=== PATIENT | female | born 1985 | race African-American/Black ===

== ENCOUNTER 2018-08-10 15:06 | Observation (INO) ==
[2018-08-10] MEDS ORDERED: hydrALAZINE 20 MG/1 ML VIAL IV STA ×2 (15:27→15:54)
[2018-08-10 15:52] LABS: Basophils % 0.3 % (0.0-0.8); Eosinophils # 0.1 10*3/uL (0.0-0.87); Hemoglobin 9.1 GM/DL (12.0-16.0); Immature Granulocytes % 0.4 %; Immature Granulocytes Absolute 0.04 #; Lymphocytes # 1.1 10*3/uL (1.4-4.0); Mean Corpuscular HGB Conc 29.4 GM/DL (32-36); Mean Corpuscular Hemoglobin 19 PG (27-34); Mean Corpuscular Volume 65.4 FL (87-102); Mean Platelet Volume 9.8 FL (9.6-12.0); Monocytes # 1.1 10*3/uL (0.11-0.8); Monocytes % 10.8 % (1.7-12.7); Neutrophils # 7.4 10*3/uL (1.4-7.4); Neutrophils % 76.5 % (38.7-73.9); Platelet Count 248 T/CUMM (130-400); Red Blood Count 4.74 MC/CUMM (3.8-5.5); Red Cell Distribution Width 20.5 % (9.3-17.3); White Blood Count 9.7 T/CUMM (4-12)
[2018-08-10 16:02] LABS: INR 0.9; PT Patient Result 9.9 SECS
[2018-08-10] MEDS ORDERED: LABETALOL 20 MG/4 ML SYRINGE IV ONE ×2 (16:41→19:20)
[2018-08-10 16:43] LABS: Alanine Aminotransferase 18 U/L (13-56); Albumin 3.9 G/DL (3.4-5.0); Alkaline Phosphatase 90 U/L (45-117); Aspartate Amino Transferase 21 U/L (0-37); Bilirubin,Total < 0.39 MG/DL (0.2-1.0); Blood Urea Nitrogen 22 MG/DL (7-18); Calcium 10.2 MG/DL (8.5-10.1); Glucose 125 MG/DL (74-106); Osmolality,Calculated 267.5 MOS/KG (273-304); Sodium 132 MMOL/L (136-145); Total Protein 9.3 G/DL (6.4-8.3)
[2018-08-10] MEDS ORDERED: ONDANSETRON 4 MG/2 ML VIAL ONE (16:45)
[2018-08-10 16:48] LABS: Potassium 2.5 MMOL/L (3.5-5.1); Troponin I 0.117 NG/ML (0.00-0.045)
[2018-08-10] MEDS ORDERED: LABETALOL 20 MG/4 ML SYRINGE IV STA (16:49)
[2018-08-10] MEDS ORDERED: POTASSIUM CHLORIDE 20 MEQ TABLET PO STA (16:50)
[2018-08-10] MEDS ORDERED: methylPREDNISolone SOD SUC 125 MG/2 ML VIAL IV STA (16:51)
[2018-08-10] MEDS ORDERED: MORPHINE 4 MG/1 ML VIAL IV STA (16:51)
[2018-08-10] MEDS ORDERED: ONDANSETRON 4 MG/2 ML VIAL IV STA (16:51)
[2018-08-10] MEDS ORDERED: ASPIRIN 325 MG TABLET PO STA (16:51)
[2018-08-10] MEDS ORDERED: ALBUTEROL/IPRATROPIUM 3 ML NEB RESP TX STA (16:51)
[2018-08-10] MEDS ORDERED: NITROGLYCERIN DRIP 50 MG/250 ML BOTTLE IV SCH (17:00)
[2018-08-10 17:38] LABS: Apearance,Urine Slightly Hazy (Clear); Bacteria,Urine Occasional /HPF (Few); Bilirubin,Urine Negative (Negative); Blood, Urine Negative (Negative); Glucose,Urine (UA) Negative (Negative); Ketones,Urine Negative (Negative); Nitrite,Urine Negative (Negative); Protein,Urine >=500 MG/DL; RBC,Urine 4 /HPF (0-4); Squamous Epithelial Cell,Urine Occasional /HPF (0-10); Urine Color Yellow (Yellow); Urine Specific Gravity 1.024 (1.001-1.035); WBC,Urine 5 /HPF (0-6)
[2018-08-10 17:42] LABS: Barbiturates Screen,Urine Negative (Negative); Benzodiazepines Screen,Urine Negative (Negative); Cannabinoid Screen,Urine Positive (Negative); Opiate Screen,Urine Negative (Negative); Phencyclidine Screen,Urine Negative (Negative)
[2018-08-10] MEDS ORDERED: ACETAMINOPHEN 500 MG TABLET ONE (18:05)
[2018-08-10] MEDS ORDERED: SODIUM CHLORIDE 0.9% 1,000 ML IV ONE (18:26)
[2018-08-10] MEDS ORDERED: ACETAMINOPHEN 500 MG TABLET PO STA (19:00)
[2018-08-10 20:14] LABS: Basophils % 0.2 % (0.0-0.8); Eosinophils % 0.1 % (0.00-10.9); Hematocrit 27.6 VOL% (35.7-47.0); Hemoglobin 8.3 GM/DL (12.0-16.0); Immature Granulocytes % 0.4 %; Immature Granulocytes Absolute 0.04 #; Lymphocytes # 0.3 10*3/uL (1.4-4.0); Lymphocytes % 2.7 % (21.3-54.2); Mean Corpuscular HGB Conc 30.1 GM/DL (32-36); Mean Corpuscular Hemoglobin 19 PG (27-34); Mean Corpuscular Volume 64.3 FL (87-102); Mean Platelet Volume 10.5 FL (9.6-12.0); Monocytes # 0.3 10*3/uL (0.11-0.8); Monocytes % 3.6 % (1.7-12.7); Neutrophils # 8.9 10*3/uL (1.4-7.4); Platelet Count 224 T/CUMM (130-400); Red Blood Count 4.29 MC/CUMM (3.8-5.5); Red Cell Distribution Width 19.9 % (9.3-17.3); White Blood Count 9.6 T/CUMM (4-12)
[2018-08-10 20:25] LABS: INR 0.9; PT Patient Result 10.1 SECS
[2018-08-10 20:36] LABS: Band Neutrophils 1 % (0-10); Eosinophils 1 % (0-10); Lymphocytes 3 % (20-55); Platelet Estimate Normal; Segmented Neutrophils 93 % (50-85); Total Cells Counted 100
[2018-08-10 20:37] LABS: Hypochromasia Slight; Microcytosis 1+
[2018-08-10 20:47] LABS: Albumin 3.3 G/DL (3.4-5.0); Bilirubin,Total 1.1 MG/DL (0.2-1.0); Calcium 9.1 MG/DL (8.5-10.1); Osmolality,Calculated 269.4 MOS/KG (273-304); Potassium 2.7 MMOL/L (3.5-5.1); Total Protein 7.7 G/DL (6.4-8.3)
[2018-08-10] MEDS: SODIUM CHLOR 0.9% KCL 40 MEQ 40 MEQ/1,000 ML BAG IV SCH (21:31)
[2018-08-10] MEDS: ENOXAPARIN 40 MG/0.4 ML SYRINGE SUBCUT SCH (21:31)
[2018-08-11] MEDS: hydrALAZINE 20 MG/1 ML VIAL IV PRN ×3 (00:37→14:27)
[2018-08-11 00:57] LABS: Basophils % 0.1 % (0.0-0.8); Hematocrit 26.1 VOL% (35.7-47.0); Hemoglobin 7.9 GM/DL (12.0-16.0); Immature Granulocytes % 0.5 %; Immature Granulocytes Absolute 0.04 #; Lymphocytes # 0.3 10*3/uL (1.4-4.0); Lymphocytes % 3.6 % (21.3-54.2); Mean Corpuscular HGB Conc 30.3 GM/DL (32-36); Mean Corpuscular Hemoglobin 20 PG (27-34); Mean Corpuscular Volume 64.4 FL (87-102); Monocytes # 0.1 10*3/uL (0.11-0.8); Neutrophils # 7.7 10*3/uL (1.4-7.4); Neutrophils % 94.8 % (38.7-73.9); Platelet Count 210 T/CUMM (130-400); Red Blood Count 4.05 MC/CUMM (3.8-5.5); Red Cell Distribution Width 19.9 % (9.3-17.3); White Blood Count 8.1 T/CUMM (4-12)
[2018-08-11 01:12] LABS: Calcium 9.5 MG/DL (8.5-10.1); Osmolality,Calculated 272.2 MOS/KG (273-304); Potassium 3.2 MMOL/L (3.5-5.1); Risk Ratio 1.66; VLDL CHOLESTEROL 8.4 MG/DL
[2018-08-11] MEDS: ACETAMINOPHEN 325 MG TABLET PO PRN ×5 (02:55→23:49)
[2018-08-11 03:45] LABS: Band Neutrophils 4 % (0-10); Lymphocytes 5 % (20-55); Platelet Estimate Normal; Segmented Neutrophils 89 % (50-85); Total Cells Counted 100
[2018-08-11] MEDS ORDERED: POTASSIUM CHLORIDE 20 MEQ TABLET PO ONE ×2 (06:46→12:00)
[2018-08-11] MEDS: SODIUM CHLOR 0.9% KCL 40 MEQ 40 MEQ/1,000 ML BAG IV SCH ×2 (07:06→13:00)
[2018-08-11 07:09] LABS: % Iron Saturation 4.7 % (18-50); Ferritin 6.3 ng/ml (8-252)
[2018-08-11] MEDS: ASPIRIN EC 325 MG TABLET PO SCH (08:03)
[2018-08-11] MEDS: POTASSIUM CHLORIDE 20 MEQ TABLET PO ONE ×2 (08:07→08:10)
[2018-08-11] MEDS ORDERED: AZITHROMYCIN INJ 500 MG in SODIUM CHLORIDE 0.9% 250 ML IV ONE (08:44)
[2018-08-11] MEDS ORDERED: amLODIPine 5 MG TABLET PO SCH (09:00)
[2018-08-11] MEDS: cefTRIAXone 1,000 MG in SYRINGE 1 EACH IV SCH (10:12)
[2018-08-11] MEDS: MONTELUKAST 10 MG TABLET PO SCH (10:12)
[2018-08-11] MEDS: FLUTICASONE 50 MCG NASAL SPRAY 16 GM BOTTLE BOTH NARES SCH ×2 (10:12→21:45)
[2018-08-11] MEDS: SPIRONOLACTONE 25 MG TABLET PO SCH ×2 (15:30→21:41)
[2018-08-11] MEDS: cloNIDine 0.1 MG TABLET PO SCH (21:41)
[2018-08-11] MEDS: ENOXAPARIN 40 MG/0.4 ML SYRINGE SUBCUT SCH (21:41)
[2018-08-12 05:33] LABS: Basophils % 0.3 % (0.0-0.8); Eosinophils % 0.1 % (0.00-10.9); Hematocrit 27.3 VOL% (35.7-47.0); Hemoglobin 8.2 GM/DL (12.0-16.0); Immature Granulocytes % 0.5 %; Immature Granulocytes Absolute 0.08 #; Lymphocytes # 1.8 10*3/uL (1.4-4.0); Lymphocytes % 11.7 % (21.3-54.2); Mean Corpuscular Hemoglobin 19 PG (27-34); Mean Corpuscular Volume 64.1 FL (87-102); Mean Platelet Volume 10.4 FL (9.6-12.0); Monocytes # 0.8 10*3/uL (0.11-0.8); Neutrophils # 12.4 10*3/uL (1.4-7.4); Neutrophils % 82.4 % (38.7-73.9); Platelet Count 219 T/CUMM (130-400); Red Blood Count 4.26 MC/CUMM (3.8-5.5); Red Cell Distribution Width 20.9 % (9.3-17.3)
[2018-08-12 05:51] LABS: Calcium 9.7 MG/DL (8.5-10.1); Osmolality,Calculated 267.4 MOS/KG (273-304); Potassium 3.6 MMOL/L (3.5-5.1)
[2018-08-12 06:06] LABS: Hypochromasia 2+
[2018-08-12 06:07] LABS: Anisocytosis 1+; Microcytosis 1+; Ovalocytes Few; Platelet Estimate Normal; Target Cells Few
[2018-08-12] MEDS ORDERED: AZITHROMYCIN 250 MG TABLET PO SCH (09:00)
[2018-08-12] MEDS: SPIRONOLACTONE 25 MG TABLET PO SCH (09:22)
[2018-08-12] MEDS: cloNIDine 0.1 MG TABLET PO SCH (09:22)
[2018-08-12] MEDS: MONTELUKAST 10 MG TABLET PO SCH (09:22)
[2018-08-12] MEDS: ASPIRIN EC 325 MG TABLET PO SCH (09:22)
[2018-08-12] MEDS: FLUTICASONE 50 MCG NASAL SPRAY 16 GM BOTTLE BOTH NARES SCH (09:23)
[2018-08-12] MEDS: cefTRIAXone 1,000 MG in SYRINGE 1 EACH IV SCH (09:23)
[2018-08-12 11:30] VITALS: BP 147/94
== END 2018-08-12 11:30 | disposition home or self-care (01) ==
LOC: N.EDINP 15:06 → N.ED 15:06 → N.5E 19:35
PROVIDERS: ADMIT Family Medicine; ATTEND Family Medicine

== ENCOUNTER 2018-10-12 16:00 | Inpatient (IN) ==
[2018-10-12] MEDS ORDERED: ONDANSETRON 4 MG/2 ML VIAL IV STA (16:50)
[2018-10-12] MEDS ORDERED: SODIUM CHLORIDE 0.9% 1,000 ML IV STA (16:50)
[2018-10-12] MEDS ORDERED: HYDROmorphone 2 MG/1 ML VIAL IV STA (16:50)
[2018-10-12 17:04] LABS: Apearance,Urine Slightly Hazy (Clear); Bacteria,Urine Occasional /HPF (Few); Bilirubin,Urine Negative (Negative); Blood, Urine Negative (Negative); Glucose,Urine (UA) 50 mg/dL (Negative); Hyaline Casts,Urine 3 /LPF (0-3); Ketones,Urine Negative (Negative); Mucus,Urine Occasional /LPF (Occasional); Nitrite,Urine Negative (Negative); Protein,Urine >=500 MG/DL; RBC,Urine 10 /HPF (0-4); Squamous Epithelial Cell,Urine Occasional /HPF (0-10); Trichomonas,Urine Occasional /HPF (<1); Urine Color Yellow (Yellow); Urine Specific Gravity 1.016 (1.001-1.035); Urine Urobilinogen < 2.0 EU/DL (0.2-1.0); WBC,Urine 13 /HPF (0-6)
[2018-10-12] MEDS ORDERED: METOPROLOL TARTRATE 5 MG/5 ML VIAL IV STA ×2 (17:06→17:48)
[2018-10-12 17:14] LABS: Basophils # 0.1 10*3/uL (0.0-0.2); Basophils % 0.4 % (0.0-0.8); Eosinophils # 0.1 10*3/uL (0.0-0.87); Eosinophils % 0.4 % (0.00-10.9); Hematocrit 33.4 VOL% (35.7-47.0); Immature Granulocytes % 0.5 %; Immature Granulocytes Absolute 0.07 #; Lymphocytes # 2.3 10*3/uL (1.4-4.0); Lymphocytes % 16.2 % (21.3-54.2); Mean Corpuscular HGB Conc 29.9 GM/DL (32-36); Mean Corpuscular Volume 66.7 FL (87-102); Mean Platelet Volume 10.6 FL (9.6-12.0); Monocytes % 4.6 % (1.7-12.7); Neutrophils % 77.9 % (38.7-73.9); Platelet Count 348 T/CUMM (130-400); Red Blood Count 5.01 MC/CUMM (3.8-5.5); White Blood Count 14.2 T/CUMM (4-12)
[2018-10-12 17:39] LABS: Albumin 4.1 G/DL (3.4-5.0); Bilirubin,Total 0.4 MG/DL (0.2-1.0); Calcium 10.7 MG/DL (8.5-10.1); Osmolality,Calculated 274.1 MOS/KG (273-304); Total Protein 10.3 G/DL (6.4-8.3)
[2018-10-12] MEDS ORDERED: hydrALAZINE 20 MG/1 ML VIAL ONE (18:05)
[2018-10-12] MEDS ORDERED: POTASSIUM CHLORIDE 20 MEQ TABLET PO ONE (18:05)
[2018-10-12] MEDS ORDERED: POTASSIUM CHLORIDE 20 MEQ TABLET PO STA (18:06)
[2018-10-12] MEDS ORDERED: hydrALAZINE 20 MG/1 ML VIAL IV STA ×2 (18:06→18:33)
[2018-10-12] MEDS ORDERED: cefTRIAXone 1,000 MG in SODIUM CHLORIDE 0.9% 100 ML IV STA (19:02)
[2018-10-12 19:22] LABS: Microcytosis 2+; Platelet Estimate Normal; Polychromasia Slight
[2018-10-12] MEDS ORDERED: DILTIAZEM 25 MG/5 ML VIAL IV ONE (19:50)
[2018-10-12] MEDS ORDERED: niCARdipine 25 MG/10 ML VIAL IV ONE (19:53)
[2018-10-12] MEDS: niCARdipine INJ 25 MG in SODIUM CHLORIDE 0.9% 240 ML IV PRN (20:00)
[2018-10-12] MEDS ORDERED: BISACODYL 5 MG TABLET PO PRN (20:05)
[2018-10-12] MEDS ORDERED: ZALEPLON 5 MG CAPSULE PO PRN (20:05)
[2018-10-12] MEDS ORDERED: diphenhydrAMINE CAP 25 MG CAPSULE PO PRN (20:05)
[2018-10-12] MEDS ORDERED: niCARdipine INJ 25 MG in SODIUM CHLORIDE 0.9% 240 ML IV PRN (20:05)
[2018-10-12] MEDS ORDERED: guaiFENesin/DM ER 600-30 MG TABLET PO PRN (20:05)
[2018-10-12] MEDS ORDERED: NICOTINE 21 MG/24 HR PATCH TRANSDERM PRN (20:05)
[2018-10-12] MEDS: ONDANSETRON 4 MG/2 ML VIAL IV PRN (21:27)
[2018-10-12] MEDS: MORPHINE 4 MG/1 ML VIAL IV PRN (22:22)
[2018-10-12] MEDS: PANTOPRAZOLE 40 MG VIAL IV SCH (22:23)
[2018-10-12] MEDS: SODIUM CHLOR 0.9% KCL 40 MEQ 40 MEQ/1,000 ML BAG IV SCH (22:24)
[2018-10-12] MEDS: POTASSIUM CHLORIDE RIDER 10 MEQ in PREMIX 1 EACH IV PRN ×2 (22:30→23:36)
[2018-10-13] MEDS: niCARdipine INJ 25 MG in SODIUM CHLORIDE 0.9% 240 ML IV PRN ×2 (00:25→08:00)
[2018-10-13] MEDS: POTASSIUM CHLORIDE RIDER 10 MEQ in PREMIX 1 EACH IV PRN ×6 (00:33→10:44)
[2018-10-13] MEDS: ONDANSETRON 4 MG/2 ML VIAL IV PRN (02:02)
[2018-10-13] MEDS: MORPHINE 4 MG/1 ML VIAL IV PRN (02:02)
[2018-10-13] MEDS: niCARdipine INJ 50 MG in SODIUM CHLORIDE 0.9% 480 ML IV PRN ×2 (03:08→07:52)
[2018-10-13 05:24] LABS: Basophils % 0.2 % (0.0-0.8); Eosinophils % 0.1 % (0.00-10.9); Hematocrit 27.2 VOL% (35.7-47.0); Hemoglobin 8.2 GM/DL (12.0-16.0); Immature Granulocytes % 0.6 %; Immature Granulocytes Absolute 0.09 #; Lymphocytes # 1.6 10*3/uL (1.4-4.0); Lymphocytes % 10.2 % (21.3-54.2); Mean Corpuscular HGB Conc 30.1 GM/DL (32-36); Mean Corpuscular Volume 67.2 FL (87-102); Mean Platelet Volume 10.9 FL (9.6-12.0); Monocytes % 5.7 % (1.7-12.7); Neutrophils % 83.2 % (38.7-73.9); Platelet Count 281 T/CUMM (130-400); Red Blood Count 4.05 MC/CUMM (3.8-5.5); Red Cell Distribution Width 19.4 % (9.3-17.3); White Blood Count 15.5 T/CUMM (4-12)
[2018-10-13 05:58] LABS: Albumin 3.4 G/DL (3.4-5.0); Bilirubin,Total 0.6 MG/DL (0.2-1.0); Calcium 9.3 MG/DL (8.5-10.1); Total Protein 8.2 G/DL (6.4-8.3)
[2018-10-13 06:03] LABS: Anisocytosis 1+; Hypochromasia 1+; Microcytosis 1+; Ovalocytes Slight; Target Cells Slight
[2018-10-13 06:04] LABS: Platelet Estimate Normal
[2018-10-13] MEDS: SODIUM CHLOR 0.9% KCL 40 MEQ 40 MEQ/1,000 ML BAG IV SCH ×3 (06:37→23:15)
[2018-10-13] MEDS: PANTOPRAZOLE 40 MG VIAL IV SCH ×2 (08:00→21:35)
[2018-10-13] MEDS: LABETALOL 200 MG TABLET PO SCH ×2 (08:25→21:34)
[2018-10-13] MEDS ORDERED: PANTOPRAZOLE 40 MG TABLET PO SCH (09:00)
[2018-10-13] MEDS ORDERED: POTASSIUM CHLORIDE 20 MEQ TABLET PO ONE (12:52)
[2018-10-13 13:26] LABS: Barbiturates Screen,Urine Negative (Negative); Benzodiazepines Screen,Urine Negative (Negative); Cannabinoid Screen,Urine Positive (Negative); Opiate Screen,Urine Positive (Negative); Phencyclidine Screen,Urine Negative (Negative)
[2018-10-13] MEDS: cefTRIAXone 1,000 MG in SYRINGE 1 EACH IV SCH (17:47)
[2018-10-13] MEDS: cloNIDine 0.1 MG TABLET PO SCH (21:34)
[2018-10-13] MEDS: ACETAMINOPHEN 325 MG TABLET PO PRN (21:34)
[2018-10-14 04:28] LABS: Calcium 9.3 MG/DL (8.5-10.1); Osmolality,Calculated 275.7 MOS/KG (273-304)
[2018-10-14 04:34] LABS: Basophils # 0.1 10*3/uL (0.0-0.2); Basophils % 0.5 % (0.0-0.8); Eosinophils # 0.2 10*3/uL (0.0-0.87); Eosinophils % 1.8 % (0.00-10.9); Hematocrit 24.7 VOL% (35.7-47.0); Hemoglobin 7.4 GM/DL (12.0-16.0); Immature Granulocytes % 0.5 %; Immature Granulocytes Absolute 0.05 #; Lymphocytes # 2.8 10*3/uL (1.4-4.0); Lymphocytes % 25.8 % (21.3-54.2); Mean Corpuscular Volume 68.6 FL (87-102); Mean Platelet Volume 10.9 FL (9.6-12.0); Monocytes % 6.3 % (1.7-12.7); Neutrophils % 65.1 % (38.7-73.9); Platelet Count 270 T/CUMM (130-400); Red Cell Distribution Width 19.8 % (9.3-17.3); White Blood Count 10.8 T/CUMM (4-12)
[2018-10-14 05:15] LABS: Hypochromasia 3+; Microcytosis 1+; Platelet Estimate Normal; Polychromasia Few; Target Cells Few
[2018-10-14] MEDS: ACETAMINOPHEN 325 MG TABLET PO PRN ×3 (05:33→20:06)
[2018-10-14] MEDS: SODIUM CHLOR 0.9% KCL 40 MEQ 40 MEQ/1,000 ML BAG IV SCH ×2 (07:27→15:16)
[2018-10-14] MEDS: LABETALOL 200 MG TABLET PO SCH ×2 (09:03→23:33)
[2018-10-14] MEDS: cloNIDine 0.1 MG TABLET PO SCH ×2 (09:03→20:07)
[2018-10-14] MEDS: PANTOPRAZOLE 40 MG VIAL IV SCH ×2 (09:03→20:07)
[2018-10-14] MEDS ORDERED: SODIUM CHLORIDE 0.9% 1,000 ML IV PRN (09:38)
[2018-10-14 10:00] LABS: % Iron Saturation 4.7 % (18-50); Ferritin 6.7 ng/ml (8-252)
[2018-10-14] MEDS: hydrALAZINE 25 MG TABLET PO SCH ×3 (11:08→20:07)
[2018-10-14] MEDS: FERROUS SULFATE 325 MG TABLET PO SCH ×2 (15:16→20:03)
[2018-10-14] MEDS: cefTRIAXone 1,000 MG in SYRINGE 1 EACH IV SCH (18:22)
[2018-10-15] MEDS: ACETAMINOPHEN 325 MG TABLET PO PRN ×2 (02:17→22:32)
[2018-10-15] MEDS: SODIUM CHLOR 0.9% KCL 40 MEQ 40 MEQ/1,000 ML BAG IV SCH (05:26)
[2018-10-15 08:15] LABS: Basophils # 0.1 10*3/uL (0.0-0.2); Basophils % 0.7 % (0.0-0.8); Eosinophils # 0.3 10*3/uL (0.0-0.87); Eosinophils % 2.9 % (0.00-10.9); Hematocrit 30.7 VOL% (35.7-47.0); Immature Granulocytes % 0.4 %; Immature Granulocytes Absolute 0.04 #; Lymphocytes # 1.8 10*3/uL (1.4-4.0); Lymphocytes % 16.9 % (21.3-54.2); Mean Corpuscular HGB Conc 30.6 GM/DL (32-36); Mean Corpuscular Volume 69.9 FL (87-102); Mean Platelet Volume 10.7 FL (9.6-12.0); Monocytes % 5.4 % (1.7-12.7); Neutrophils % 73.7 % (38.7-73.9); Platelet Count 302 T/CUMM (130-400); Red Cell Distribution Width 20.9 % (9.3-17.3); White Blood Count 10.7 T/CUMM (4-12)
[2018-10-15 08:25] LABS: Hemoglobin 9.4 GM/DL (12.0-16.0); Red Blood Count 4.39 MC/CUMM (3.8-5.5)
[2018-10-15] MEDS: cloNIDine 0.1 MG TABLET PO SCH ×2 (09:48→20:31)
[2018-10-15] MEDS: hydrALAZINE 25 MG TABLET PO SCH (09:48)
[2018-10-15] MEDS: FERROUS SULFATE 325 MG TABLET PO SCH ×3 (09:48→20:31)
[2018-10-15] MEDS: LABETALOL 200 MG TABLET PO SCH ×2 (09:48→20:32)
[2018-10-15] MEDS: PANTOPRAZOLE 40 MG VIAL IV SCH ×2 (09:50→20:32)
[2018-10-15] MEDS: ISOSORBIDE MONONITRATE 30 MG TABLET PO SCH ×2 (12:45→20:32)
[2018-10-15] MEDS: IRON SUCROSE 500 MG in SODIUM CHLORIDE 0.9% 250 ML IV SCH (15:20)
[2018-10-15 16:39] LABS: HIV Antigen/Antibody Result Nonreactive (Nonreactive)
[2018-10-15] MEDS: hydrALAZINE 20 MG/1 ML VIAL IV PRN (17:24)
[2018-10-15] MEDS: cefTRIAXone 1,000 MG in SYRINGE 1 EACH IV SCH (17:26)
[2018-10-16 06:08] LABS: Calcium 9.9 MG/DL (8.5-10.1); Osmolality,Calculated 275.8 MOS/KG (273-304)
[2018-10-16] MEDS: POTASSIUM CHLORIDE 20 MEQ TABLET PO PRN ×3 (08:46→14:09)
[2018-10-16] MEDS: LABETALOL 200 MG TABLET PO SCH ×2 (08:46→20:02)
[2018-10-16] MEDS: cloNIDine 0.1 MG TABLET PO SCH ×2 (08:46→20:02)
[2018-10-16] MEDS: PANTOPRAZOLE 40 MG VIAL IV SCH ×2 (08:46→20:02)
[2018-10-16] MEDS: ISOSORBIDE MONONITRATE 30 MG TABLET PO SCH ×2 (08:46→23:54)
[2018-10-16] MEDS: FERROUS SULFATE 325 MG TABLET PO SCH ×3 (08:46→20:02)
[2018-10-16] MEDS: IRON SUCROSE 500 MG in SODIUM CHLORIDE 0.9% 250 ML IV SCH (08:47)
[2018-10-16] MEDS ORDERED: LACTULOSE 20 GM/30 ML UDCUP PO PRN (09:05)
[2018-10-16] MEDS: ACETAMINOPHEN 325 MG TABLET PO PRN ×3 (11:49→23:54)
[2018-10-16] MEDS: hydrALAZINE 20 MG/1 ML VIAL IV PRN (16:28)
[2018-10-16] MEDS: cefTRIAXone 1,000 MG in SYRINGE 1 EACH IV SCH (18:04)
[2018-10-17] MEDS ORDERED: MORPHINE 4 MG/1 ML VIAL IV PRN (03:40)
[2018-10-17] MEDS ORDERED: LACTATED RINGERS 500 ML IV SCH (08:00)
[2018-10-17] MEDS: cloNIDine 0.1 MG TABLET PO SCH (08:36)
[2018-10-17] MEDS: PANTOPRAZOLE 40 MG VIAL IV SCH (08:37)
[2018-10-17] MEDS ORDERED: PROPOFOL 200 MG/20 ML VIAL IV ONE (10:00)
[2018-10-17] MEDS ORDERED: LABETALOL 100 MG/20 ML VIAL IV ONE (10:00)
[2018-10-17] MEDS ORDERED: LIDOCAINE 2% 5 ML VIAL ONE (10:00)
[2018-10-17] MEDS: LABETALOL 200 MG TABLET PO SCH (12:52)
[2018-10-17] MEDS: FERROUS SULFATE 325 MG TABLET PO SCH (12:52)
[2018-10-17] MEDS: ISOSORBIDE MONONITRATE 30 MG TABLET PO SCH (12:52)
[2018-10-17 13:07] VITALS: BP 167/105
== END 2018-10-17 14:32 | disposition home or self-care (01) | DRG 683 ==
LOC: N.ED 16:00 → SUATTDRO 20:05 → N.ICU 20:46 → SUATTDRO 20:46 → N.ICU 22:06 → N.5E 10-15 03:59
PROVIDERS: ADMIT Internal Medicine; ATTEND Internal Medicine Infectious Disease

== ENCOUNTER 2018-10-25 07:25 | Inpatient (IN) ==
[2018-10-25] MEDS ORDERED: SODIUM CHLORIDE 0.9% 2,000 ML IV STA (08:04)
[2018-10-25] MEDS ORDERED: ONDANSETRON ODT 4 MG TABLET PO STA (08:04)
[2018-10-25] MEDS ORDERED: HYDROmorphone 2 MG/1 ML VIAL IV STA (08:04)
[2018-10-25] MEDS ORDERED: PANTOPRAZOLE 40 MG VIAL IV STA (08:04)
[2018-10-25] MEDS ORDERED: METOPROLOL TARTRATE 5 MG/5 ML VIAL IV STA (08:05)
[2018-10-25] MEDS ORDERED: cloNIDine 0.1 MG TABLET PO STA (08:05)
[2018-10-25] MEDS ORDERED: ONDANSETRON 4 MG/2 ML VIAL ONE (08:27)
[2018-10-25] MEDS ORDERED: ONDANSETRON 4 MG/2 ML VIAL IV STA (08:59)
[2018-10-25 09:04] LABS: Basophils # 0.1 10*3/uL (0.0-0.2); Basophils % 0.5 % (0.0-0.8); Eosinophils # 0.1 10*3/uL (0.0-0.87); Eosinophils % 1.2 % (0.00-10.9); Hematocrit 37.8 VOL% (35.7-47.0); Hemoglobin 11.6 GM/DL (12.0-16.0); Immature Granulocytes % 0.5 %; Immature Granulocytes Absolute 0.06 #; Lymphocytes # 2.3 10*3/uL (1.4-4.0); Lymphocytes % 20.5 % (21.3-54.2); Mean Corpuscular HGB Conc 30.7 GM/DL (32-36); Mean Corpuscular Volume 71.7 FL (87-102); Mean Platelet Volume 10.4 FL (9.6-12.0); Monocytes % 5.9 % (1.7-12.7); Neutrophils % 71.4 % (38.7-73.9); Platelet Count 273 T/CUMM (130-400); Red Blood Count 5.27 MC/CUMM (3.8-5.5); Red Cell Distribution Width 22.2 % (9.3-17.3)
[2018-10-25 09:20] LABS: Albumin 3.9 G/DL (3.4-5.0); Bilirubin,Total 0.4 MG/DL (0.2-1.0); Calcium 10.3 MG/DL (8.5-10.1); Total Protein 8.5 G/DL (6.4-8.3)
[2018-10-25 09:29] LABS: Hypochromasia 1+; Microcytosis Slight; Ovalocytes Slight; Platelet Estimate Adequate
[2018-10-25 10:12] LABS: Amorphous Crystals,Urine Few /HPF (Few); Apearance,Urine Slightly Hazy (Clear); Bilirubin,Urine Negative (Negative); Blood, Urine Small mg/dL (Negative); Glucose,Urine (UA) 50 mg/dL (Negative); Ketones,Urine Negative (Negative); Mucus,Urine Occasional /LPF (Occasional); Nitrite,Urine Negative (Negative); Protein,Urine >=500 MG/DL; RBC,Urine 22 /HPF (0-4); Squamous Epithelial Cell,Urine Occasional /HPF (0-10); Urine Color Yellow (Yellow); Urine Specific Gravity 1.019 (1.001-1.035); Urine Urobilinogen < 2.0 EU/DL (0.2-1.0); WBC,Urine 2 /HPF (0-6)
[2018-10-25 10:20] LABS: Barbiturates Screen,Urine Negative (Negative); Benzodiazepines Screen,Urine Negative (Negative); Cannabinoid Screen,Urine Positive (Negative); Opiate Screen,Urine Negative (Negative); Phencyclidine Screen,Urine Negative (Negative)
[2018-10-25] MEDS ORDERED: ALBUTEROL 2.5 MG/3 ML NEB RESP TX PRN (11:08)
[2018-10-25] MEDS ORDERED: niCARdipine 25 MG/10 ML VIAL IV ONE (11:42)
[2018-10-25] MEDS: ENOXAPARIN 30 MG/0.3 ML SYRINGE SUBCUT SCH (11:50)
[2018-10-25] MEDS: niCARdipine INJ 25 MG in SODIUM CHLORIDE 0.9% 240 ML IV PRN ×3 (11:55→22:13)
[2018-10-25] MEDS ORDERED: LORazepam 2 MG/1 ML VIAL IV PRN (12:06)
[2018-10-25] MEDS: NICOTINE 7 MG/24 HR PATCH TRANSDERM SCH (15:57)
[2018-10-25] MEDS: MORPHINE 4 MG/1 ML VIAL IV PRN (20:21)
[2018-10-25] MEDS: amLODIPine 10 MG TABLET PO SCH (20:21)
[2018-10-25] MEDS ORDERED: cloNIDine 0.1 MG TABLET PO SCH (21:00)
[2018-10-25] MEDS: ONDANSETRON 4 MG/2 ML VIAL IV PRN (21:00)
[2018-10-25] MEDS ORDERED: POTASSIUM CHLORIDE 20 MEQ TABLET PO SCH (21:00)
[2018-10-26] MEDS: niCARdipine INJ 25 MG in SODIUM CHLORIDE 0.9% 240 ML IV PRN ×2 (02:46→08:17)
[2018-10-26] MEDS: MORPHINE 4 MG/1 ML VIAL IV PRN ×3 (04:15→22:51)
[2018-10-26] MEDS: ONDANSETRON 4 MG/2 ML VIAL IV PRN (04:17)
[2018-10-26 04:31] LABS: Basophils # 0.1 10*3/uL (0.0-0.2); Basophils % 0.6 % (0.0-0.8); Eosinophils # 0.2 10*3/uL (0.0-0.87); Hematocrit 35.2 VOL% (35.7-47.0); Hemoglobin 10.8 GM/DL (12.0-16.0); Immature Granulocytes % 0.5 %; Immature Granulocytes Absolute 0.05 #; Lymphocytes # 2.2 10*3/uL (1.4-4.0); Lymphocytes % 21.7 % (21.3-54.2); Mean Corpuscular HGB Conc 30.7 GM/DL (32-36); Mean Corpuscular Volume 73.2 FL (87-102); Mean Platelet Volume 10.6 FL (9.6-12.0); Monocytes % 6.3 % (1.7-12.7); Neutrophils % 68.9 % (38.7-73.9); Platelet Count 239 T/CUMM (130-400); Red Blood Count 4.81 MC/CUMM (3.8-5.5); Red Cell Distribution Width 21.9 % (9.3-17.3); White Blood Count 10.2 T/CUMM (4-12)
[2018-10-26 05:04] LABS: Calcium 9.2 MG/DL (8.5-10.1); Osmolality,Calculated 274.8 MOS/KG (273-304); Risk Ratio 2.06; Thyroid Stimulating Hormone 1.03 uIU/ml (0.358-3.74); VLDL CHOLESTEROL 29.4 MG/DL
[2018-10-26] MEDS: POTASSIUM CHLORIDE 20 MEQ TABLET PO SCH ×4 (07:27→18:37)
[2018-10-26] MEDS: ACETAMINOPHEN 325 MG TABLET PO PRN (07:27)
[2018-10-26] MEDS ORDERED: PANTOPRAZOLE 40 MG VIAL IV SCH (08:00)
[2018-10-26] MEDS ORDERED: ISOSORBIDE MONONITRATE 30 MG TABLET PO SCH (09:00)
[2018-10-26] MEDS ORDERED: amLODIPine 10 MG TABLET PO SCH (09:00)
[2018-10-26] MEDS: amLODIPine 10 MG TABLET PO SCH (09:58)
[2018-10-26] MEDS: NICOTINE 7 MG/24 HR PATCH TRANSDERM SCH (09:58)
[2018-10-26] MEDS: cloNIDine 0.1 MG TABLET PO SCH ×2 (09:58→23:54)
[2018-10-26] MEDS: LISINOPRIL 10 MG TABLET PO SCH ×2 (09:58→23:55)
[2018-10-26] MEDS: PANTOPRAZOLE 40 MG TABLET PO SCH (09:58)
[2018-10-26] MEDS: ENOXAPARIN 30 MG/0.3 ML SYRINGE SUBCUT SCH (12:51)
[2018-10-27 06:10] LABS: Calcium 9.8 MG/DL (8.5-10.1); Osmolality,Calculated 272.8 MOS/KG (273-304)
[2018-10-27] MEDS: LISINOPRIL 10 MG TABLET PO SCH ×2 (08:58→22:06)
[2018-10-27] MEDS: cloNIDine 0.1 MG TABLET PO SCH ×2 (08:58→22:55)
[2018-10-27] MEDS: amLODIPine 10 MG TABLET PO SCH (08:58)
[2018-10-27] MEDS: ACETAMINOPHEN 325 MG TABLET PO PRN (08:58)
[2018-10-27] MEDS: PANTOPRAZOLE 40 MG TABLET PO SCH (08:58)
[2018-10-27] MEDS: POTASSIUM CHLORIDE 20 MEQ TABLET PO SCH ×2 (08:58→22:06)
[2018-10-27] MEDS: NICOTINE 7 MG/24 HR PATCH TRANSDERM SCH (08:59)
[2018-10-27] MEDS: ENOXAPARIN 30 MG/0.3 ML SYRINGE SUBCUT SCH (12:37)
[2018-10-27] MEDS: MORPHINE 4 MG/1 ML VIAL IV PRN (12:38)
[2018-10-28] MEDS: ACETAMINOPHEN 325 MG TABLET PO PRN (05:54)
[2018-10-28 06:25] LABS: Calcium 9.2 MG/DL (8.5-10.1); Osmolality,Calculated 281.5 MOS/KG (273-304)
[2018-10-28] MEDS: PANTOPRAZOLE 40 MG TABLET PO SCH (08:14)
[2018-10-28] MEDS: ENOXAPARIN 30 MG/0.3 ML SYRINGE SUBCUT SCH (08:14)
[2018-10-28] MEDS: LISINOPRIL 10 MG TABLET PO SCH (08:14)
[2018-10-28] MEDS: cloNIDine 0.1 MG TABLET PO SCH (08:14)
[2018-10-28] MEDS: NICOTINE 7 MG/24 HR PATCH TRANSDERM SCH (08:15)
[2018-10-28] MEDS: amLODIPine 10 MG TABLET PO SCH (08:15)
[2018-10-28] MEDS: POTASSIUM CHLORIDE 20 MEQ TABLET PO SCH (08:15)
[2018-10-28 12:03] VITALS: BP 134/83
[2018-10-29] MEDS ORDERED: POTASSIUM CHLORIDE 20 MEQ TABLET PO SCH (09:00)
[2018-11-15] MEDS ORDERED: BISACODYL 5 MG TABLET PO ONE (12:00)
[2018-11-15] MEDS ORDERED: POLYETHYLENE GLYCOL POWDER 255 GM BOTTLE PO ONE (18:00)
== END 2018-10-28 12:42 | disposition home or self-care (01) | DRG 305 ==
LOC: N.ED 07:25 → SUATTDRO 11:08 → N.EDINP 11:08 → N.ICU 14:50 → N.2E 10-27 11:08
PROVIDERS: ADMIT Internal Medicine; ATTEND Internal Medicine

== ENCOUNTER 2019-03-31 15:51 | Inpatient (IN) ==
[2019-03-31] MEDS ORDERED: ASPIRIN 325 MG TABLET PO STA (16:47)
[2019-03-31] MEDS ORDERED: hydrALAZINE 20 MG/1 ML VIAL IV STA ×2 (16:47→18:36)
[2019-03-31] MEDS ORDERED: METOPROLOL TARTRATE 5 MG/5 ML VIAL IV STA ×2 (16:47→18:36)
[2019-03-31] MEDS ORDERED: ONDANSETRON 4 MG/2 ML VIAL IV STA (16:47)
[2019-03-31 17:47] LABS: Basophils # 0.1 10*3/uL (0.0-0.2); Basophils % 0.5 % (0.0-0.8); Eosinophils # 0.1 10*3/uL (0.0-0.87); Eosinophils % 0.9 % (0.00-10.9); Hematocrit 34.7 VOL% (35.7-47.0); Hemoglobin 11.7 GM/DL (12.0-16.0); Immature Granulocytes % 0.5 %; Immature Granulocytes Absolute 0.07 #; Lymphocytes # 2.3 10*3/uL (1.4-4.0); Lymphocytes % 15.2 % (21.3-54.2); Mean Corpuscular HGB Conc 33.7 GM/DL (32-36); Mean Corpuscular Volume 81.6 FL (87-102); Monocytes % 7.7 % (1.7-12.7); Neutrophils % 75.2 % (38.7-73.9); Platelet Count 207 T/CUMM (130-400); Red Blood Count 4.25 MC/CUMM (3.8-5.5); Red Cell Distribution Width 13.7 % (9.3-17.3); White Blood Count 15.3 T/CUMM (4-12)
[2019-03-31 17:59] LABS: INR 0.9; PT Patient Result 9.8 SECS (9.6-12.2); Partial Thromboplastin Time 24.5 SECS (20.8-36.0)
[2019-03-31 18:03] LABS: Apearance,Urine CLEAR (Clear); Bacteria,Urine Occasional /HPF (Few); Bilirubin,Urine Negative (Negative); Blood, Urine Negative (Negative); Glucose,Urine (UA) 50 mg/dL (Negative); Hyaline Casts,Urine 1 /LPF (0-3); Ketones,Urine Negative (Negative); Nitrite,Urine Negative (Negative); Protein,Urine >=500 MG/DL; RBC,Urine 4 /HPF (0-4); Squamous Epithelial Cell,Urine Occasional /HPF (0-10); Urine Color Yellow (Yellow); Urine Specific Gravity 1.024 (1.001-1.035); Urine Urobilinogen < 2.0 EU/DL (0.2-1.0); WBC,Urine 2 /HPF (0-6)
[2019-03-31 18:12] LABS: Alanine Aminotransferase 17 U/L (13-56); Albumin 3.6 G/DL (3.4-5.0); Alkaline Phosphatase 80 U/L (45-117); Aspartate Amino Transferase 33 U/L (0-37); Blood Urea Nitrogen 32 MG/DL (7-18); Calcium 10.3 MG/DL (8.5-10.1); Estimated Glom Filtration Rate 17 ML/MIN; Glucose 107 MG/DL (74-106); Total Protein 8.2 G/DL (6.4-8.3)
[2019-03-31 18:13] LABS: Troponin I 0.279 NG/ML (0.00-0.045)
[2019-03-31 18:18] LABS: Barbiturates Screen,Urine Negative (Negative); Benzodiazepines Screen,Urine Negative (Negative); Cannabinoid Screen,Urine Positive (Negative); Opiate Screen,Urine Negative (Negative); Phencyclidine Screen,Urine Negative (Negative)
[2019-03-31] MEDS ORDERED: ACETAMINOPHEN 325 MG TABLET PO PRN (20:41)
[2019-03-31] MEDS ORDERED: ALUM/MAG/SIMETH/LIDO VISC 1:1 30 ML BOTTLE PO STA (20:44)
[2019-03-31] MEDS ORDERED: ALBUTEROL/IPRATROPIUM 3 ML NEB RESP TX PRN (20:45)
[2019-03-31] MEDS ORDERED: hydrALAZINE 25 MG TABLET PO SCH (21:00)
[2019-03-31] MEDS ORDERED: ISOSORBIDE DINITRATE 20 MG TABLET PO SCH (21:00)
[2019-03-31 21:56] LABS: Troponin I 0.286 NG/ML (0.00-0.045)
[2019-03-31] MEDS: ENOXAPARIN 30 MG/0.3 ML SYRINGE SUBCUT SCH (22:39)
[2019-04-01] MEDS: hydrALAZINE 20 MG/1 ML VIAL IV PRN ×2 (04:49→12:50)
[2019-04-01 05:12] LABS: Basophils # 0.1 10*3/uL (0.0-0.2); Basophils % 0.4 % (0.0-0.8); Eosinophils # 0.1 10*3/uL (0.0-0.87); Eosinophils % 0.5 % (0.00-10.9); Hematocrit 30.8 VOL% (35.7-47.0); Hemoglobin 10.4 GM/DL (12.0-16.0); Immature Granulocytes % 0.4 %; Immature Granulocytes Absolute 0.05 #; Lymphocytes # 1.9 10*3/uL (1.4-4.0); Lymphocytes % 13.8 % (21.3-54.2); Mean Corpuscular HGB Conc 33.8 GM/DL (32-36); Mean Corpuscular Volume 81.1 FL (87-102); Mean Platelet Volume 11.5 FL (9.6-12.0); Monocytes % 6.7 % (1.7-12.7); Neutrophils % 78.2 % (38.7-73.9); Platelet Count 203 T/CUMM (130-400); Red Cell Distribution Width 13.3 % (9.3-17.3); White Blood Count 13.5 T/CUMM (4-12)
[2019-04-01 05:47] LABS: Albumin 3.3 G/DL (3.4-5.0); Bilirubin,Total 0.5 MG/DL (0.2-1.0); Calcium 9.8 MG/DL (8.5-10.1); Osmolality,Calculated 274.4 MOS/KG (273-304); Risk Ratio 2.34; Total Protein 7.4 G/DL (6.4-8.3); VLDL CHOLESTEROL 24.6 MG/DL
[2019-04-01 06:01] LABS: Troponin I 0.277 NG/ML (0.00-0.045)
[2019-04-01] MEDS: ASPIRIN CHEW 81 MG TABLET PO SCH (08:45)
[2019-04-01] MEDS: amLODIPine 10 MG TABLET PO SCH (08:45)
[2019-04-01] MEDS: ISOSORBIDE DINITRATE 20 MG TABLET PO SCH ×2 (08:45→20:15)
[2019-04-01] MEDS: FUROSEMIDE 20 MG/2 ML VIAL IV SCH ×2 (08:50→18:39)
[2019-04-01] MEDS ORDERED: PANTOPRAZOLE 40 MG TABLET PO SCH (09:00)
[2019-04-01] MEDS ORDERED: POTASSIUM CHLORIDE 20 MEQ TABLET PO ONE (10:21)
[2019-04-01] MEDS ORDERED: DILTIAZEM 30 MG TABLET PO SCH (10:30)
[2019-04-01] MEDS: hydroCHLOROthiazide 12.5 MG CAPSULE PO SCH (11:43)
[2019-04-01] MEDS: carvediloL 25 MG TABLET PO SCH ×2 (11:43→20:15)
[2019-04-01] MEDS ORDERED: POLYETHYLENE GLYCOL POWDER 17 GM PACK PO ONE (16:40)
[2019-04-01] MEDS ORDERED: LINACLOTIDE 145 MCG CAPSULE PO ONE (16:57)
[2019-04-01] MEDS: ONDANSETRON 4 MG/2 ML VIAL IV PRN (18:39)
[2019-04-01] MEDS: ENOXAPARIN 30 MG/0.3 ML SYRINGE SUBCUT SCH (20:15)
[2019-04-01] MEDS: PANTOPRAZOLE 40 MG TABLET PO SCH (20:17)
[2019-04-02 06:10] LABS: Albumin 3.2 G/DL (3.4-5.0); Bilirubin,Total 1.2 MG/DL (0.2-1.0); Calcium 9.7 MG/DL (8.5-10.1); Osmolality,Calculated 270.7 MOS/KG (273-304); Total Protein 7.4 G/DL (6.4-8.3)
[2019-04-02] MEDS ORDERED: POTASSIUM CHLORIDE 20 MEQ/15 ML UDCUP PO ONE (08:11)
[2019-04-02] MEDS: hydroCHLOROthiazide 12.5 MG CAPSULE PO SCH (08:34)
[2019-04-02] MEDS: carvediloL 25 MG TABLET PO SCH ×2 (08:35→20:59)
[2019-04-02] MEDS: PANTOPRAZOLE 40 MG TABLET PO SCH ×2 (08:35→20:59)
[2019-04-02] MEDS: ASPIRIN CHEW 81 MG TABLET PO SCH (08:35)
[2019-04-02] MEDS: amLODIPine 10 MG TABLET PO SCH (08:35)
[2019-04-02] MEDS: ISOSORBIDE DINITRATE 20 MG TABLET PO SCH ×2 (08:35→20:59)
[2019-04-02] MEDS: LINACLOTIDE 145 MCG CAPSULE PO SCH (08:36)
[2019-04-02] MEDS: FUROSEMIDE 20 MG/2 ML VIAL IV SCH ×2 (08:36→16:34)
[2019-04-02] MEDS: cloNIDine 0.1 MG TABLET PO SCH ×2 (08:42→20:58)
[2019-04-02] MEDS ORDERED: POTASSIUM CHLORIDE 20 MEQ TABLET PO ONE (12:00)
[2019-04-02] MEDS: POTASSIUM CHLORIDE 20 MEQ TABLET PO SCH ×2 (13:00→13:01)
[2019-04-03 05:31] LABS: Basophils % 0.3 % (0.0-0.8); Eosinophils # 0.4 10*3/uL (0.0-0.87); Hematocrit 30.7 VOL% (35.7-47.0); Hemoglobin 10.3 GM/DL (12.0-16.0); Immature Granulocytes % 0.3 %; Immature Granulocytes Absolute 0.04 #; Lymphocytes # 1.8 10*3/uL (1.4-4.0); Mean Corpuscular HGB Conc 33.6 GM/DL (32-36); Mean Corpuscular Volume 81.9 FL (87-102); Neutrophils % 73.4 % (38.7-73.9); Platelet Count 198 T/CUMM (130-400); Red Blood Count 3.75 MC/CUMM (3.8-5.5); Red Cell Distribution Width 13.6 % (9.3-17.3); White Blood Count 12.2 T/CUMM (4-12)
[2019-04-03 05:45] LABS: Calcium 9.6 MG/DL (8.5-10.1); Osmolality,Calculated 276.5 MOS/KG (273-304)
[2019-04-03] MEDS: FUROSEMIDE 20 MG/2 ML VIAL IV SCH ×2 (10:35→15:52)
[2019-04-03] MEDS: LINACLOTIDE 145 MCG CAPSULE PO SCH (12:16)
[2019-04-03] MEDS: cloNIDine 0.1 MG TABLET PO SCH ×2 (12:18→21:25)
[2019-04-03] MEDS: ASPIRIN CHEW 81 MG TABLET PO SCH (12:18)
[2019-04-03] MEDS: ISOSORBIDE DINITRATE 20 MG TABLET PO SCH ×2 (12:19→21:25)
[2019-04-03] MEDS: carvediloL 25 MG TABLET PO SCH ×2 (12:19→21:25)
[2019-04-03] MEDS: amLODIPine 10 MG TABLET PO SCH (12:20)
[2019-04-03] MEDS: PANTOPRAZOLE 40 MG TABLET PO SCH ×2 (12:20→21:25)
[2019-04-03] MEDS: POTASSIUM CHLORIDE 20 MEQ TABLET PO SCH (12:20)
[2019-04-03] MEDS: ONDANSETRON 4 MG/2 ML VIAL IV PRN (13:06)
[2019-04-04 05:22] LABS: Basophils % 0.3 % (0.0-0.8); Eosinophils # 0.4 10*3/uL (0.0-0.87); Hematocrit 28.4 VOL% (35.7-47.0); Hemoglobin 9.5 GM/DL (12.0-16.0); Immature Granulocytes % 0.2 %; Immature Granulocytes Absolute 0.02 #; Lymphocytes # 2.6 10*3/uL (1.4-4.0); Mean Corpuscular HGB Conc 33.5 GM/DL (32-36); Mean Corpuscular Volume 82.1 FL (87-102); Mean Platelet Volume 11.8 FL (9.6-12.0); Monocytes % 9.7 % (1.7-12.7); Neutrophils % 59.8 % (38.7-73.9); Platelet Count 196 T/CUMM (130-400); Red Blood Count 3.46 MC/CUMM (3.8-5.5); Red Cell Distribution Width 13.7 % (9.3-17.3); White Blood Count 10.1 T/CUMM (4-12)
[2019-04-04 05:27] LABS: Calcium 9.5 MG/DL (8.5-10.1); Osmolality,Calculated 281.5 MOS/KG (273-304)
[2019-04-04] MEDS: FUROSEMIDE 20 MG/2 ML VIAL IV SCH (07:59)
[2019-04-04] MEDS ORDERED: POTASSIUM CHLORIDE 20 MEQ PACK PO ONE (08:21)
[2019-04-04] MEDS: ASPIRIN CHEW 81 MG TABLET PO SCH (08:36)
[2019-04-04] MEDS: cloNIDine 0.1 MG TABLET PO SCH (08:36)
[2019-04-04] MEDS: LINACLOTIDE 145 MCG CAPSULE PO SCH (08:36)
[2019-04-04] MEDS: carvediloL 25 MG TABLET PO SCH (08:36)
[2019-04-04] MEDS: POTASSIUM CHLORIDE 20 MEQ TABLET PO SCH (08:36)
[2019-04-04] MEDS: PANTOPRAZOLE 40 MG TABLET PO SCH (08:36)
[2019-04-04] MEDS: ISOSORBIDE DINITRATE 20 MG TABLET PO SCH (08:36)
[2019-04-04] MEDS: amLODIPine 10 MG TABLET PO SCH (08:36)
[2019-04-04 12:42] VITALS: BP 157/102
== END 2019-04-04 13:31 | disposition home or self-care (01) | DRG 304 ==
LOC: N.ED 15:51 → N.EDINP 20:40 → N.TELES 20:59
PROVIDERS: ADMIT Internal Medicine; ATTEND Internal Medicine

== ENCOUNTER 2019-05-10 00:12 | Inpatient (IN) ==
[2019-05-10] MEDS ORDERED: ALBUTEROL/IPRATROPIUM 3 ML NEB RESP TX STA ×2 (00:35→04:26)
[2019-05-10] MEDS ORDERED: methylPREDNISolone SOD SUC 125 MG/2 ML VIAL IV STA (00:35)
[2019-05-10] MEDS ORDERED: hydrALAZINE 20 MG/1 ML VIAL IV STA ×2 (00:37→02:11)
[2019-05-10 01:26] LABS: Basophils # 0.1 10*3/uL (0.0-0.2); Basophils % 0.5 % (0.0-0.8); Eosinophils # 0.4 10*3/uL (0.0-0.87); Eosinophils % 2.4 % (0.00-10.9); Hematocrit 27.7 VOL% (35.7-47.0); Hemoglobin 9.1 GM/DL (12.0-16.0); Immature Granulocytes % 0.9 %; Immature Granulocytes Absolute 0.13 #; Lymphocytes # 2.5 10*3/uL (1.4-4.0); Lymphocytes % 17.4 % (21.3-54.2); Mean Corpuscular HGB Conc 32.9 GM/DL (32-36); Mean Corpuscular Volume 81.2 FL (87-102); Mean Platelet Volume 10.8 FL (9.6-12.0); Monocytes % 3.9 % (1.7-12.7); Neutrophils % 74.9 % (38.7-73.9); Platelet Count 245 T/CUMM (130-400); Red Blood Count 3.41 MC/CUMM (3.8-5.5); Red Cell Distribution Width 14.2 % (9.3-17.3); White Blood Count 14.6 T/CUMM (4-12)
[2019-05-10 01:28] LABS: Alanine Aminotransferase 15 U/L (13-56); Albumin 3.1 G/DL (3.4-5.0); Alkaline Phosphatase 95 U/L (45-117); Aspartate Amino Transferase 17 U/L (0-37); Bilirubin,Total < 0.39 MG/DL (0.2-1.0); Blood Urea Nitrogen 56 MG/DL (7-18); Calcium 9.2 MG/DL (8.5-10.1); Estimated Glom Filtration Rate 7 ML/MIN; Glucose 108 MG/DL (74-106); Osmolality,Calculated 291.7 MOS/KG (273-304); Total Protein 8.1 G/DL (6.4-8.3)
[2019-05-10] MEDS ORDERED: FUROSEMIDE 40 MG/4 ML VIAL IV STA (01:33)
[2019-05-10] MEDS ORDERED: LEVOFLOXACIN INJ 750 MG in PREMIX 1 EACH IV STA (01:38)
[2019-05-10] MEDS ORDERED: METOPROLOL TARTRATE 5 MG/5 ML VIAL IV STA (01:38)
[2019-05-10 01:53] LABS: Troponin I 0.261 NG/ML (0.00-0.045)
[2019-05-10] MEDS ORDERED: PROMETHAZINE 25 MG/1 ML VIAL ONE (02:48)
[2019-05-10] MEDS ORDERED: NICOTINE 21 MG/24 HR PATCH TRANSDERM PRN (03:29)
[2019-05-10] MEDS ORDERED: MORPHINE 4 MG/1 ML VIAL IV PRN (03:29)
[2019-05-10 03:41] LABS: Barbiturates Screen,Urine Negative (Negative); Benzodiazepines Screen,Urine Negative (Negative); Cannabinoid Screen,Urine Negative (Negative); Opiate Screen,Urine Negative (Negative); Phencyclidine Screen,Urine Negative (Negative)
[2019-05-10 04:09] LABS: Apearance,Urine CLEAR (Clear); Bilirubin,Urine Negative (Negative); Blood, Urine Small mg/dL (Negative); Glucose,Urine (UA) 150 mg/dL (Negative); Ketones,Urine Negative (Negative); Nitrite,Urine Negative (Negative); Protein,Urine >=500 MG/DL; RBC,Urine 1 /HPF (0-4); Squamous Epithelial Cell,Urine Occasional /HPF (0-10); Urine Color Straw (Yellow); Urine Specific Gravity 1.008 (1.001-1.035); Urine Urobilinogen < 2.0 EU/DL (0.2-1.0); WBC,Urine 3 /HPF (0-6)
[2019-05-10 04:24] LABS: ABG Base Excess -3.2 MMOL/L (-2.5-2.5); ABG HCO3 20.4 MMOL/L (20-26); ABG PCO2 31.7 MM HG (35-48); ABG PH 7.427 (7.35-7.45); ABG PO2 59.8 MM HG (80-95); ABG TCO2 21.4 MMOL/L (23-27); Allen Test Positive; Pt O2 Delivery Device Room Air
[2019-05-10 04:25] LABS: INR 0.9; PT Patient Result 9.3 SECS (9.6-12.2); Partial Thromboplastin Time 26.6 SECS (20.8-36.0)
[2019-05-10 06:32] LABS: Allen Test Positive; Pt O2 Delivery Device Other
[2019-05-10 06:33] LABS: ABG Base Excess -3.2 MMOL/L (-2.5-2.5); ABG HCO3 20.1 MMOL/L (20-26); ABG Oxygen Saturation 99.1 % (95-100); ABG PCO2 29.8 MM HG (35-48); ABG PH 7.446 (7.35-7.45); ABG PO2 487.7 MM HG (80-95)
[2019-05-10] MEDS: niCARdipine INJ 50 MG in SODIUM CHLORIDE 0.9% 230 ML IV PRN ×3 (06:36→20:55)
[2019-05-10] MEDS ORDERED: carvediloL 25 MG TABLET PO SCH (08:00)
[2019-05-10] MEDS: LABETALOL 200 MG TABLET PO SCH ×2 (08:14→21:01)
[2019-05-10] MEDS: amLODIPine 10 MG TABLET PO SCH (08:14)
[2019-05-10] MEDS: cloNIDine 0.1 MG TABLET PO SCH ×2 (08:14→21:00)
[2019-05-10] MEDS: FUROSEMIDE 40 MG/4 ML VIAL IV SCH ×2 (08:15→16:38)
[2019-05-10] MEDS: POTASSIUM CHLORIDE RIDER 10 MEQ in PREMIX 1 EACH IV PRN ×9 (10:20→22:00)
[2019-05-10] MEDS: ONDANSETRON 4 MG/2 ML VIAL IV PRN (14:58)
[2019-05-11] MEDS: niCARdipine INJ 50 MG in SODIUM CHLORIDE 0.9% 230 ML IV PRN (02:20)
[2019-05-11 04:55] LABS: Basophils % 0.1 % (0.0-0.8); Hematocrit 22.6 VOL% (35.7-47.0); Hemoglobin 7.1 GM/DL (12.0-16.0); Immature Granulocytes % 0.7 %; Immature Granulocytes Absolute 0.12 #; Lymphocytes % 5.3 % (21.3-54.2); Mean Corpuscular HGB Conc 31.4 GM/DL (32-36); Mean Corpuscular Volume 84.6 FL (87-102); Mean Platelet Volume 10.5 FL (9.6-12.0); Monocytes % 3.2 % (1.7-12.7); Neutrophils % 90.7 % (38.7-73.9); Platelet Count 205 T/CUMM (130-400); Red Blood Count 2.67 MC/CUMM (3.8-5.5); Red Cell Distribution Width 14.5 % (9.3-17.3); White Blood Count 18.2 T/CUMM (4-12)
[2019-05-11 05:21] LABS: Hypochromasia 1+; Osmolality,Calculated 291.2 MOS/KG (273-304); Platelet Estimate Adequate
[2019-05-11 05:33] LABS: Calcium 9.8 MG/DL (8.5-10.1); Osmolality,Calculated 289.4 MOS/KG (273-304)
[2019-05-11] MEDS: POTASSIUM CHLORIDE 20 MEQ TABLET PO PRN ×2 (05:36→12:55)
[2019-05-11 06:14] LABS: Hepatitis B Core IgM Quant 0.66 Index; Hepatitis B Surface Ag Quant 0.12 Index; Hepatitis B Surface Ag Result Negative (Negative); Hepatitis C Virus Ab Quant 0.17 Index; Hepatitis C Virus Ab Result Negative (Negative)
[2019-05-11] MEDS: cloNIDine 0.1 MG TABLET PO SCH ×2 (08:58→20:47)
[2019-05-11] MEDS: amLODIPine 10 MG TABLET PO SCH (08:58)
[2019-05-11] MEDS: LABETALOL 200 MG TABLET PO SCH ×2 (08:58→20:47)
[2019-05-11] MEDS: FUROSEMIDE 40 MG/4 ML VIAL IV SCH (09:00)
[2019-05-11] MEDS: ISOSORBIDE DINITRATE 20 MG TABLET PO SCH (20:47)
[2019-05-12 05:44] LABS: Basophils % 0.1 % (0.0-0.8); Eosinophils % 0.1 % (0.00-10.9); Hematocrit 19.9 VOL% (35.7-47.0); Hemoglobin 6.5 GM/DL (12.0-16.0); Immature Granulocytes % 0.9 %; Immature Granulocytes Absolute 0.13 #; Lymphocytes # 1.6 10*3/uL (1.4-4.0); Mean Corpuscular HGB Conc 32.7 GM/DL (32-36); Mean Corpuscular Volume 81.9 FL (87-102); Mean Platelet Volume 10.5 FL (9.6-12.0); Monocytes % 4.7 % (1.7-12.7); Neutrophils % 83.2 % (38.7-73.9); Platelet Count 207 T/CUMM (130-400); Red Blood Count 2.43 MC/CUMM (3.8-5.5); Red Cell Distribution Width 14.6 % (9.3-17.3); White Blood Count 14.6 T/CUMM (4-12)
[2019-05-12 05:58] LABS: Calcium 9.2 MG/DL (8.5-10.1); Osmolality,Calculated 295.2 MOS/KG (273-304)
[2019-05-12] MEDS ORDERED: SODIUM CHLORIDE 0.9% 1,000 ML IV PRN (07:31)
[2019-05-12] MEDS: ISOSORBIDE DINITRATE 20 MG TABLET PO SCH ×2 (08:12→21:48)
[2019-05-12] MEDS: amLODIPine 10 MG TABLET PO SCH (08:12)
[2019-05-12] MEDS: LABETALOL 200 MG TABLET PO SCH ×2 (08:12→21:48)
[2019-05-12] MEDS: FUROSEMIDE 40 MG TABLET PO SCH (08:12)
[2019-05-12] MEDS: cloNIDine 0.1 MG TABLET PO SCH ×2 (08:13→21:48)
[2019-05-12] MEDS ORDERED: FUROSEMIDE 40 MG/4 ML VIAL IV ONE (14:11)
[2019-05-12 21:03] LABS: Hematocrit 25.1 VOL% (35.7-47.0); Hemoglobin 8.4 GM/DL (12.0-16.0)
[2019-05-13 04:55] LABS: Basophils % 0.2 % (0.0-0.8); Eosinophils # 0.2 10*3/uL (0.0-0.87); Eosinophils % 1.7 % (0.00-10.9); Hemoglobin 7.9 GM/DL (12.0-16.0); Immature Granulocytes % 0.6 %; Immature Granulocytes Absolute 0.07 #; Lymphocytes # 2.8 10*3/uL (1.4-4.0); Lymphocytes % 24.9 % (21.3-54.2); Mean Corpuscular HGB Conc 32.9 GM/DL (32-36); Mean Corpuscular Volume 81.4 FL (87-102); Mean Platelet Volume 10.6 FL (9.6-12.0); Neutrophils % 65.6 % (38.7-73.9); Platelet Count 203 T/CUMM (130-400); Red Blood Count 2.95 MC/CUMM (3.8-5.5); Red Cell Distribution Width 15.4 % (9.3-17.3); White Blood Count 11.1 T/CUMM (4-12)
[2019-05-13 05:18] LABS: Calcium 8.9 MG/DL (8.5-10.1); Osmolality,Calculated 302.5 MOS/KG (273-304)
[2019-05-13] MEDS: cefTRIAXone 1,000 MG in SYRINGE 1 EACH IV SCH (08:53)
[2019-05-13] MEDS: cloNIDine 0.1 MG TABLET PO SCH ×2 (08:54→20:00)
[2019-05-13] MEDS: LABETALOL 200 MG TABLET PO SCH ×2 (08:54→20:00)
[2019-05-13] MEDS: amLODIPine 10 MG TABLET PO SCH (08:54)
[2019-05-13] MEDS: ISOSORBIDE DINITRATE 20 MG TABLET PO SCH ×2 (08:54→20:00)
[2019-05-13] MEDS: FUROSEMIDE 40 MG TABLET PO SCH (08:54)
[2019-05-13] MEDS ORDERED: MAGNESIUM HYDROXIDE SUSP 30 ML UDCUP PO PRN (17:34)
[2019-05-13] MEDS: ACETAMINOPHEN 325 MG TABLET PO PRN (17:50)
[2019-05-13] MEDS: POLYETHYLENE GLYCOL POWDER 17 GM PACK PO SCH (17:51)
[2019-05-14 06:52] LABS: Basophils % 0.3 % (0.0-0.8); Eosinophils # 0.4 10*3/uL (0.0-0.87); Eosinophils % 3.6 % (0.00-10.9); Hematocrit 25.4 VOL% (35.7-47.0); Hemoglobin 8.4 GM/DL (12.0-16.0); Immature Granulocytes % 0.6 %; Immature Granulocytes Absolute 0.06 #; Lymphocytes # 2.3 10*3/uL (1.4-4.0); Lymphocytes % 21.9 % (21.3-54.2); Mean Corpuscular HGB Conc 33.1 GM/DL (32-36); Mean Corpuscular Volume 80.9 FL (87-102); Mean Platelet Volume 10.5 FL (9.6-12.0); Monocytes % 7.2 % (1.7-12.7); Neutrophils % 66.4 % (38.7-73.9); Platelet Count 214 T/CUMM (130-400); Red Blood Count 3.14 MC/CUMM (3.8-5.5); Red Cell Distribution Width 15.6 % (9.3-17.3); White Blood Count 10.4 T/CUMM (4-12)
[2019-05-14 07:20] LABS: Osmolality,Calculated 294.2 MOS/KG (273-304)
[2019-05-14] MEDS: LABETALOL 200 MG TABLET PO SCH ×2 (08:50→21:24)
[2019-05-14] MEDS: FUROSEMIDE 40 MG TABLET PO SCH (08:50)
[2019-05-14] MEDS: amLODIPine 10 MG TABLET PO SCH (08:50)
[2019-05-14] MEDS: ISOSORBIDE DINITRATE 20 MG TABLET PO SCH ×2 (08:50→21:23)
[2019-05-14] MEDS: cloNIDine 0.1 MG TABLET PO SCH ×2 (08:50→21:24)
[2019-05-14] MEDS: POLYETHYLENE GLYCOL POWDER 17 GM PACK PO SCH (08:51)
[2019-05-14] MEDS: cefTRIAXone 1,000 MG in SYRINGE 1 EACH IV SCH (08:52)
[2019-05-14] MEDS: POTASSIUM CHLORIDE 20 MEQ TABLET PO PRN ×2 (15:57→17:27)
[2019-05-14] MEDS: ONDANSETRON 4 MG/2 ML VIAL IV PRN (19:26)
[2019-05-15 05:39] LABS: Basophils % 0.2 % (0.0-0.8); Eosinophils # 0.3 10*3/uL (0.0-0.87); Eosinophils % 3.7 % (0.00-10.9); Hematocrit 25.6 VOL% (35.7-47.0); Hemoglobin 8.4 GM/DL (12.0-16.0); Immature Granulocytes % 0.4 %; Immature Granulocytes Absolute 0.04 #; Lymphocytes % 22.2 % (21.3-54.2); Mean Corpuscular HGB Conc 32.8 GM/DL (32-36); Mean Platelet Volume 10.8 FL (9.6-12.0); Monocytes % 7.8 % (1.7-12.7); Neutrophils % 65.7 % (38.7-73.9); Platelet Count 221 T/CUMM (130-400); Red Blood Count 3.16 MC/CUMM (3.8-5.5); Red Cell Distribution Width 15.5 % (9.3-17.3); White Blood Count 9.1 T/CUMM (4-12)
[2019-05-15 05:58] LABS: Osmolality,Calculated 301.5 MOS/KG (273-304)
[2019-05-15] MEDS: cefTRIAXone 1,000 MG in SYRINGE 1 EACH IV SCH (09:47)
[2019-05-15] MEDS: LABETALOL 200 MG TABLET PO SCH ×2 (09:47→21:00)
[2019-05-15] MEDS: cloNIDine 0.1 MG TABLET PO SCH (09:48)
[2019-05-15] MEDS: amLODIPine 10 MG TABLET PO SCH (09:48)
[2019-05-15] MEDS: FUROSEMIDE 40 MG TABLET PO SCH (09:48)
[2019-05-15] MEDS: ISOSORBIDE DINITRATE 20 MG TABLET PO SCH ×2 (09:48→21:00)
[2019-05-15] MEDS: POLYETHYLENE GLYCOL POWDER 17 GM PACK PO SCH (09:50)
[2019-05-16 05:02] LABS: Basophils % 0.4 % (0.0-0.8); Eosinophils # 0.3 10*3/uL (0.0-0.87); Eosinophils % 3.8 % (0.00-10.9); Hematocrit 25.3 VOL% (35.7-47.0); Hemoglobin 8.5 GM/DL (12.0-16.0); Immature Granulocytes % 0.4 %; Immature Granulocytes Absolute 0.04 #; Lymphocytes # 2.4 10*3/uL (1.4-4.0); Lymphocytes % 26.8 % (21.3-54.2); Mean Corpuscular HGB Conc 33.6 GM/DL (32-36); Mean Corpuscular Volume 80.8 FL (87-102); Mean Platelet Volume 10.8 FL (9.6-12.0); Monocytes % 6.8 % (1.7-12.7); Neutrophils % 61.8 % (38.7-73.9); Platelet Count 237 T/CUMM (130-400); Red Blood Count 3.13 MC/CUMM (3.8-5.5); Red Cell Distribution Width 15.5 % (9.3-17.3)
[2019-05-16 05:16] LABS: Calcium 9.1 MG/DL (8.5-10.1); Osmolality,Calculated 299.7 MOS/KG (273-304)
[2019-05-16] MEDS: cefTRIAXone 1,000 MG in SYRINGE 1 EACH IV SCH (08:21)
[2019-05-16] MEDS: POLYETHYLENE GLYCOL POWDER 17 GM PACK PO SCH (08:22)
[2019-05-16] MEDS: FUROSEMIDE 40 MG TABLET PO SCH (08:23)
[2019-05-16] MEDS: LABETALOL 200 MG TABLET PO SCH ×2 (08:23→21:45)
[2019-05-16] MEDS: ISOSORBIDE DINITRATE 20 MG TABLET PO SCH ×2 (08:23→21:45)
[2019-05-16] MEDS: POTASSIUM CHLORIDE 20 MEQ TABLET PO PRN (08:24)
[2019-05-16] MEDS: amLODIPine 10 MG TABLET PO SCH (08:24)
[2019-05-16] MEDS ORDERED: ceFAZolin 1,000 MG in SYRINGE 1 EACH IV ONE (10:27)
[2019-05-16] MEDS ORDERED: HEPARIN 5,000 UNIT/1 ML VIAL ONE (13:03)
[2019-05-16] MEDS ORDERED: LIDOCAINE 1%/EPI INJ 20 ML VIAL ONE (13:04)
[2019-05-16] MEDS ORDERED: SODIUM CHLORIDE 0.9% 250 ML IV SCH (13:30)
[2019-05-16] MEDS ORDERED: TISSUE ADHESIVE 1 EACH APPLICATOR TOP ONE (13:53)
[2019-05-16] MEDS ORDERED: LIDOCAINE 2% 5 ML VIAL ONE (13:54)
[2019-05-16] MEDS ORDERED: PROPOFOL 200 MG/20 ML VIAL IV ONE (13:54)
[2019-05-16] MEDS ORDERED: KETAMINE 500 MG/10 ML VIAL ONE (13:55)
[2019-05-16] MEDS ORDERED: fentaNYL 100 MCG/2 ML VIAL ONE (13:55)
[2019-05-16] MEDS ORDERED: MIDAZOLAM 2 MG/2 ML VIAL ONE (13:55)
[2019-05-16] MEDS ORDERED: HEPARIN 10,000 UNIT/10 ML VIAL IV SCH (17:00)
[2019-05-17] MEDS: POTASSIUM CHLORIDE 20 MEQ TABLET PO PRN ×3 (07:54→16:07)
[2019-05-17] MEDS: ACETAMINOPHEN 325 MG TABLET PO PRN (07:54)
[2019-05-17] MEDS: cefTRIAXone 1,000 MG in SYRINGE 1 EACH IV SCH (08:13)
[2019-05-17 09:32] LABS: Basophils % 0.2 % (0.0-0.8); Eosinophils # 0.3 10*3/uL (0.0-0.87); Eosinophils % 3.1 % (0.00-10.9); Hematocrit 25.3 VOL% (35.7-47.0); Hemoglobin 8.3 GM/DL (12.0-16.0); Immature Granulocytes % 0.3 %; Immature Granulocytes Absolute 0.03 #; Lymphocytes # 1.7 10*3/uL (1.4-4.0); Lymphocytes % 18.9 % (21.3-54.2); Mean Corpuscular HGB Conc 32.8 GM/DL (32-36); Mean Corpuscular Volume 81.6 FL (87-102); Mean Platelet Volume 10.2 FL (9.6-12.0); Monocytes % 7.7 % (1.7-12.7); Neutrophils % 69.8 % (38.7-73.9); Platelet Count 222 T/CUMM (130-400); Red Cell Distribution Width 15.9 % (9.3-17.3); White Blood Count 8.8 T/CUMM (4-12)
[2019-05-17 09:55] LABS: Osmolality,Calculated 290.7 MOS/KG (273-304)
[2019-05-17] MEDS: ISOSORBIDE DINITRATE 20 MG TABLET PO SCH ×2 (10:26→22:09)
[2019-05-17] MEDS: POLYETHYLENE GLYCOL POWDER 17 GM PACK PO SCH (13:44)
[2019-05-17] MEDS: LABETALOL 200 MG TABLET PO SCH ×2 (13:45→22:09)
[2019-05-17] MEDS: FUROSEMIDE 40 MG TABLET PO SCH (13:45)
[2019-05-17] MEDS: amLODIPine 10 MG TABLET PO SCH (13:45)
[2019-05-17] MEDS: ONDANSETRON 4 MG/2 ML VIAL IV PRN (22:46)
[2019-05-18 04:44] LABS: Basophils % 0.4 % (0.0-0.8); Eosinophils # 0.3 10*3/uL (0.0-0.87); Eosinophils % 3.7 % (0.00-10.9); Hemoglobin 9.4 GM/DL (12.0-16.0); Immature Granulocytes % 0.4 %; Immature Granulocytes Absolute 0.04 #; Lymphocytes % 22.9 % (21.3-54.2); Mean Corpuscular HGB Conc 32.4 GM/DL (32-36); Mean Corpuscular Volume 82.6 FL (87-102); Mean Platelet Volume 10.7 FL (9.6-12.0); Monocytes % 8.2 % (1.7-12.7); Neutrophils % 64.4 % (38.7-73.9); Platelet Count 248 T/CUMM (130-400); Red Blood Count 3.51 MC/CUMM (3.8-5.5); Red Cell Distribution Width 15.8 % (9.3-17.3); White Blood Count 8.9 T/CUMM (4-12)
[2019-05-18 05:01] LABS: Calcium 10.1 MG/DL (8.5-10.1); Osmolality,Calculated 284.5 MOS/KG (273-304)
[2019-05-18 08:17] VITALS: BP 165/91
[2019-05-18] MEDS: cefTRIAXone 1,000 MG in SYRINGE 1 EACH IV SCH (08:27)
[2019-05-18] MEDS: POLYETHYLENE GLYCOL POWDER 17 GM PACK PO SCH (15:00)
[2019-05-18] MEDS: LABETALOL 200 MG TABLET PO SCH (15:01)
[2019-05-18] MEDS: FUROSEMIDE 40 MG TABLET PO SCH (15:01)
[2019-05-18] MEDS: ISOSORBIDE DINITRATE 20 MG TABLET PO SCH (15:01)
[2019-05-18] MEDS: amLODIPine 10 MG TABLET PO SCH (15:02)
== END 2019-05-18 17:16 | disposition home or self-care (01) | DRG 280 ==
LOC: EDBD → EDUNIT# → N.ED 00:12 → SUATTDRO 03:33 → N.EDINP 03:33 → N.ICU 04:55 → N.2E 05-11 16:00 → N.TELEN 05-14 02:56
PROVIDERS: ADMIT Internal Medicine; ATTEND Hospitalist

== ENCOUNTER 2019-07-26 06:15 | Observation (INO) ==
[2019-07-25 15:18] LABS: Basophils # 0.1 10*3/uL (0.0-0.2); Basophils % 0.7 % (0.0-0.8); Eosinophils # 0.3 10*3/uL (0.0-0.87); Eosinophils % 3.6 % (0.00-10.9); Hematocrit 34.5 VOL% (35.7-47.0); Hemoglobin 11.2 GM/DL (12.0-16.0); Immature Granulocytes % 0.3 %; Immature Granulocytes Absolute 0.03 #; Lymphocytes # 2.5 10*3/uL (1.4-4.0); Lymphocytes % 26.3 % (21.3-54.2); Mean Corpuscular HGB Conc 32.5 GM/DL (32-36); Mean Corpuscular Volume 86.5 FL (87-102); Mean Platelet Volume 9.8 FL (9.6-12.0); Monocytes % 6.4 % (1.7-12.7); Neutrophils % 62.7 % (38.7-73.9); Platelet Count 223 T/CUMM (130-400); Red Blood Count 3.99 MC/CUMM (3.8-5.5); Red Cell Distribution Width 17.2 % (9.3-17.3); White Blood Count 9.3 T/CUMM (4-12)
[2019-07-25 15:38] LABS: Calcium 9.4 MG/DL (8.5-10.1); Osmolality,Calculated 266.4 MOS/KG (273-304)
[~2019-07-26 06:15] MED LIST: BUPIVACAINE MPF 0.25% 30 ML VIAL ONE; HEPARIN 5,000 UNIT/1 ML VIAL ONE; LIDOCAINE 1%/EPI INJ 20 ML VIAL ONE; ceFAZolin 1,000 MG VIAL ONE
[2019-07-26] MEDS ORDERED: ceFAZolin 1,000 MG in SYRINGE 1 EACH IV ONE (06:30)
[2019-07-26 06:32] LABS: Hematocrit 33.2 VOL% (35.7-47.0); Hemoglobin 10.8 GM/DL (12.0-16.0)
[2019-07-26] MEDS ORDERED: amLODIPine 5 MG TABLET ONE (06:35)
[2019-07-26] MEDS ORDERED: LABETALOL 100 MG/20 ML VIAL IV ONE (06:36)
[2019-07-26] MEDS ORDERED: amLODIPine 10 MG TABLET PO STA (06:38)
[2019-07-26] MEDS ORDERED: LABETALOL 20 MG/4 ML SYRINGE IV STA (06:39)
[2019-07-26] MEDS ORDERED: SODIUM CHLORIDE 0.9% 250 ML IV SCH (07:00)
[2019-07-26] MEDS ORDERED: ACETAMINOPHEN 325 MG TABLET PO PRN (08:22)
[2019-07-26] MEDS ORDERED: GLUCAGON 1 MG VIAL IM PRN (08:22)
[2019-07-26] MEDS ORDERED: NICOTINE 21 MG/24 HR PATCH TRANSDERM PRN (08:22)
[2019-07-26 08:29] LABS: Amorphous Crystals,Urine Few /HPF (Few); Apearance,Urine Slightly Hazy (Clear); Bacteria,Urine Occasional /HPF (Few); Bilirubin,Urine Negative (Negative); Blood, Urine Negative (Negative); Glucose,Urine (UA) 50 mg/dL (Negative); Ketones,Urine Negative (Negative); Mucus,Urine Occasional /LPF (Occasional); Nitrite,Urine Negative (Negative); Protein,Urine 100 MG/DL; RBC,Urine 3 /HPF (0-4); Squamous Epithelial Cell,Urine Moderate /HPF (0-10); Urine Color Yellow (Yellow); Urine Specific Gravity 1.009 (1.001-1.035); Urine Urobilinogen < 2.0 EU/DL (0.2-1.0); WBC,Urine 17 /HPF (0-6)
[2019-07-26 08:32] LABS: Barbiturates Screen,Urine Negative (Negative); Benzodiazepines Screen,Urine Negative (Negative); Cannabinoid Screen,Urine Positive (Negative); Opiate Screen,Urine Negative (Negative); Phencyclidine Screen,Urine Negative (Negative)
[2019-07-26 10:39] LABS: Alanine Aminotransferase 10 U/L (13-56); Albumin 3.7 G/DL (3.4-5.0); Alkaline Phosphatase 88 U/L (45-117); Aspartate Amino Transferase 13 U/L (0-37); Bilirubin,Total < 0.39 MG/DL (0.2-1.0); Blood Urea Nitrogen 25 MG/DL (7-18); Calcium 9.8 MG/DL (8.5-10.1); Estimated Glom Filtration Rate 9 ML/MIN; Glucose 93 MG/DL (74-106); Osmolality,Calculated 271.2 MOS/KG (273-304); Total Protein 8.5 G/DL (6.4-8.3)
[2019-07-26 10:42] LABS: Basophils # 0.1 10*3/uL (0.0-0.2); Basophils % 0.7 % (0.0-0.8); Eosinophils # 0.4 10*3/uL (0.0-0.87); Eosinophils % 4.4 % (0.00-10.9); Hematocrit 33.5 VOL% (35.7-47.0); Hemoglobin 10.8 GM/DL (12.0-16.0); Immature Granulocytes % 0.4 %; Immature Granulocytes Absolute 0.03 #; Lymphocytes # 2.4 10*3/uL (1.4-4.0); Lymphocytes % 29.6 % (21.3-54.2); Mean Corpuscular HGB Conc 32.2 GM/DL (32-36); Mean Corpuscular Volume 87.7 FL (87-102); Monocytes % 8.1 % (1.7-12.7); Neutrophils % 56.8 % (38.7-73.9); Platelet Count 234 T/CUMM (130-400); Red Blood Count 3.82 MC/CUMM (3.8-5.5); Red Cell Distribution Width 17.4 % (9.3-17.3); White Blood Count 8.1 T/CUMM (4-12)
[2019-07-26] MEDS ORDERED: INSULIN LISPRO 100 UNIT/ML SUBCUT SCH (11:30)
[2019-07-26] MEDS ORDERED: DEXTROSE 10% 250 ML BAG IV PRN (12:53)
[2019-07-26] MEDS: LABETALOL 200 MG TABLET PO SCH ×2 (13:03→20:32)
[2019-07-26] MEDS: amLODIPine 10 MG TABLET PO SCH (13:03)
[2019-07-26] MEDS: PANTOPRAZOLE 40 MG TABLET PO SCH (13:03)
[2019-07-26] MEDS: niCARdipine INJ 25 MG in SODIUM CHLORIDE 0.9% 240 ML IV PRN ×2 (15:13→22:16)
[2019-07-27] MEDS: niCARdipine INJ 25 MG in SODIUM CHLORIDE 0.9% 240 ML IV PRN ×2 (03:49→11:31)
[2019-07-27 05:04] LABS: Basophils # 0.1 10*3/uL (0.0-0.2); Basophils % 0.7 % (0.0-0.8); Eosinophils # 0.5 10*3/uL (0.0-0.87); Eosinophils % 6.1 % (0.00-10.9); Hematocrit 32.3 VOL% (35.7-47.0); Hemoglobin 10.5 GM/DL (12.0-16.0); Immature Granulocytes % 0.3 %; Immature Granulocytes Absolute 0.02 #; Lymphocytes # 2.1 10*3/uL (1.4-4.0); Lymphocytes % 29.1 % (21.3-54.2); Mean Corpuscular HGB Conc 32.5 GM/DL (32-36); Mean Corpuscular Volume 85.4 FL (87-102); Mean Platelet Volume 11.5 FL (9.6-12.0); Monocytes % 8.3 % (1.7-12.7); Neutrophils % 55.5 % (38.7-73.9); Platelet Count 208 T/CUMM (130-400); Red Blood Count 3.78 MC/CUMM (3.8-5.5); Red Cell Distribution Width 16.7 % (9.3-17.3); White Blood Count 7.3 T/CUMM (4-12)
[2019-07-27 05:22] LABS: Albumin 3.3 G/DL (3.4-5.0); Bilirubin,Total 0.5 MG/DL (0.2-1.0); Calcium 9.6 MG/DL (8.5-10.1); Osmolality,Calculated 272.4 MOS/KG (273-304); Total Protein 7.8 G/DL (6.4-8.3)
[2019-07-27] MEDS: LABETALOL 200 MG TABLET PO SCH ×2 (08:03→21:20)
[2019-07-27] MEDS: amLODIPine 10 MG TABLET PO SCH (08:04)
[2019-07-27] MEDS: PANTOPRAZOLE 40 MG TABLET PO SCH (08:04)
[2019-07-27] MEDS ORDERED: HEPARIN 5,000 UNIT/1 ML VIAL ONE (08:43)
[2019-07-27] MEDS ORDERED: BUPIVACAINE MPF 0.25% 30 ML VIAL ONE (08:43)
[2019-07-27] MEDS ORDERED: LIDOCAINE 1%/EPI INJ 20 ML VIAL ONE (08:43)
[2019-07-27] MEDS ORDERED: ceFAZolin 1,000 MG VIAL ONE ×2 (10:10→10:56)
[2019-07-27] MEDS ORDERED: LIDOCAINE 2% 5 ML VIAL ONE (10:55)
[2019-07-27] MEDS ORDERED: propofoL 200 MG/20 ML VIAL IV ONE (10:55)
[2019-07-27] MEDS ORDERED: HEPARIN 10,000 UNIT/10 ML VIAL ONE (10:55)
[2019-07-27] MEDS ORDERED: fentaNYL 100 MCG/2 ML VIAL ONE (10:55)
[2019-07-27] MEDS ORDERED: MIDAZOLAM 2 MG/2 ML VIAL ONE (10:55)
[2019-07-27] MEDS ORDERED: ePHEDrine 50 MG/ML AMP ONE (10:56)
[2019-07-27] MEDS ORDERED: SEVOFLURANE 1 UNIT/15 MINUTE INH ONE (10:56)
[2019-07-28] MEDS: LABETALOL 200 MG TABLET PO SCH ×2 (07:52→08:15)
[2019-07-28] MEDS: amLODIPine 10 MG TABLET PO SCH ×2 (07:52→08:14)
[2019-07-28 07:53] LABS: Calcium 8.9 MG/DL (8.5-10.1); Osmolality,Calculated 272.4 MOS/KG (273-304)
[2019-07-28] MEDS: PANTOPRAZOLE 40 MG TABLET PO SCH ×2 (07:53→08:14)
[2019-07-28 07:55] LABS: Basophils % 0.5 % (0.0-0.8); Eosinophils # 0.5 10*3/uL (0.0-0.87); Hematocrit 31.6 VOL% (35.7-47.0); Hemoglobin 10.1 GM/DL (12.0-16.0); Immature Granulocytes % 0.3 %; Immature Granulocytes Absolute 0.02 #; Lymphocytes # 1.9 10*3/uL (1.4-4.0); Lymphocytes % 23.9 % (21.3-54.2); Mean Corpuscular Volume 87.1 FL (87-102); Mean Platelet Volume 10.6 FL (9.6-12.0); Monocytes % 6.8 % (1.7-12.7); Neutrophils % 62.5 % (38.7-73.9); Platelet Count 186 T/CUMM (130-400); Red Blood Count 3.63 MC/CUMM (3.8-5.5); Red Cell Distribution Width 17.1 % (9.3-17.3); White Blood Count 7.8 T/CUMM (4-12)
[2019-07-28] MEDS ORDERED: HEPARIN 10,000 UNIT/10 ML VIAL IV PRN (09:44)
[2019-07-28 13:21] VITALS: BP 132/80
== END 2019-07-28 13:58 | disposition home or self-care (01) ==
LOC: N.SDSINP 06:15 → N.CC 06:15 → N.OR 06:15 → N.CC 12:33
PROVIDERS: ADMIT Student in an Organized Health Care Education/Training Program; ATTEND Student in an Organized Health Care Education/Training Program

== ENCOUNTER 2019-10-16 23:34 | Observation (INO) ==
[2019-10-17] MEDS ORDERED: ONDANSETRON 4 MG/2 ML VIAL ONE
[2019-10-17] MEDS ORDERED: ONDANSETRON 4 MG/2 ML VIAL IV STA (00:07)
[2019-10-17] MEDS ORDERED: PANTOPRAZOLE 40 MG VIAL IV STA (00:07)
[2019-10-17] MEDS ORDERED: MORPHINE 4 MG/1 ML VIAL IV STA (00:07)
[2019-10-17] MEDS ORDERED: hydrALAZINE 20 MG/1 ML VIAL IV STA (00:08)
[2019-10-17 00:48] LABS: Albumin 3.9 G/DL (3.4-5.0); Bilirubin,Total 0.4 MG/DL (0.2-1.0); Calcium 10.2 MG/DL (8.5-10.1); Osmolality,Calculated 284.2 MOS/KG (273-304); Total Protein 9.2 G/DL (6.4-8.3)
[2019-10-17 01:03] LABS: Basophils # 0.1 10*3/uL (0.0-0.2); Basophils % 0.4 % (0.0-0.8); Eosinophils # 0.4 10*3/uL (0.0-0.87); Eosinophils % 2.9 % (0.00-10.9); Hematocrit 32.8 VOL% (35.7-47.0); Immature Granulocytes % 0.7 %; Immature Granulocytes Absolute 0.09 #; Lymphocytes # 2.1 10*3/uL (1.4-4.0); Lymphocytes % 15.5 % (21.3-54.2); Mean Corpuscular HGB Conc 33.5 GM/DL (32-36); Mean Corpuscular Volume 82.2 FL (87-102); Mean Platelet Volume 10.2 FL (9.6-12.0); Monocytes % 5.5 % (1.7-12.7); Platelet Count 283 T/CUMM (130-400); Red Blood Count 3.99 MC/CUMM (3.8-5.5); Red Cell Distribution Width 15.1 % (9.3-17.3); White Blood Count 13.3 T/CUMM (4-12)
[2019-10-17] MEDS ORDERED: CIPROFLOXACIN 500 MG TABLET PO STA (02:19)
[2019-10-17] MEDS ORDERED: PROMETHAZINE 25 MG/1 ML VIAL IM STA (02:19)
[2019-10-17] MEDS ORDERED: METOCLOPRAMIDE 10 MG/2 ML VIAL IV STA (03:52)
[2019-10-17] MEDS ORDERED: GLUCAGON 1 MG VIAL IM PRN (03:58)
[2019-10-17] MEDS ORDERED: DEXTROSE 50% 25 GM/50 ML SYRINGE IV PRN (03:58)
[2019-10-17] MEDS ORDERED: ACETAMINOPHEN 325 MG TABLET PO PRN (03:58)
[2019-10-17] MEDS ORDERED: LEVOFLOXACIN INJ 500 MG in PREMIX 1 EACH IV ONE (04:04)
[2019-10-17] MEDS: ENOXAPARIN 30 MG/0.3 ML SYRINGE SUBCUT SCH (04:41)
[2019-10-17] MEDS: hydrALAZINE 20 MG/1 ML VIAL IV PRN ×2 (04:52→10:38)
[2019-10-17 07:44] LABS: Basophils % 0.3 % (0.0-0.8); Eosinophils # 0.1 10*3/uL (0.0-0.87); Eosinophils % 0.8 % (0.00-10.9); Hematocrit 32.6 VOL% (35.7-47.0); Hemoglobin 10.7 GM/DL (12.0-16.0); Immature Granulocytes % 0.5 %; Immature Granulocytes Absolute 0.07 #; Lymphocytes # 1.4 10*3/uL (1.4-4.0); Lymphocytes % 10.7 % (21.3-54.2); Mean Corpuscular HGB Conc 32.8 GM/DL (32-36); Mean Corpuscular Volume 82.1 FL (87-102); Mean Platelet Volume 9.4 FL (9.6-12.0); Monocytes % 4.7 % (1.7-12.7); Platelet Count 233 T/CUMM (130-400); Red Blood Count 3.97 MC/CUMM (3.8-5.5); Red Cell Distribution Width 15.4 % (9.3-17.3); White Blood Count 13.1 T/CUMM (4-12)
[2019-10-17] MEDS: MORPHINE 4 MG/1 ML VIAL IV PRN ×2 (08:03→21:57)
[2019-10-17] MEDS: ONDANSETRON 4 MG/2 ML VIAL IV PRN ×2 (08:04→21:55)
[2019-10-17 08:19] LABS: Albumin 3.7 G/DL (3.4-5.0); Bilirubin,Total 0.7 MG/DL (0.2-1.0); Calcium 10.1 MG/DL (8.5-10.1); Osmolality,Calculated 285.2 MOS/KG (273-304); Total Protein 8.6 G/DL (6.4-8.3)
[2019-10-17] MEDS: PANTOPRAZOLE 40 MG TABLET PO SCH ×2 (09:02→11:48)
[2019-10-17] MEDS: amLODIPine 10 MG TABLET PO SCH (11:48)
[2019-10-17] MEDS: cloNIDine 0.1 MG TABLET PO SCH ×2 (11:48→22:02)
[2019-10-17] MEDS: ISOSORBIDE DINITRATE 20 MG TABLET PO SCH ×2 (11:48→22:02)
[2019-10-17] MEDS: carvediloL 25 MG TABLET PO SCH ×2 (11:48→22:00)
[2019-10-17] MEDS: metroNIDAZOLE INJ 500 MG in PREMIX 1 EACH IV SCH ×2 (12:13→18:08)
[2019-10-18 01:19] LABS: Barbiturates Screen,Urine Negative (Negative); Benzodiazepines Screen,Urine Negative (Negative); Cannabinoid Screen,Urine Negative (Negative); Opiate Screen,Urine Positive (Negative); Phencyclidine Screen,Urine Negative (Negative)
[2019-10-18] MEDS: metroNIDAZOLE INJ 500 MG in PREMIX 1 EACH IV SCH ×2 (03:21→12:29)
[2019-10-18] MEDS: ENOXAPARIN 30 MG/0.3 ML SYRINGE SUBCUT SCH (04:06)
[2019-10-18 06:02] LABS: Basophils % 0.3 % (0.0-0.8); Eosinophils # 0.2 10*3/uL (0.0-0.87); Eosinophils % 2.3 % (0.00-10.9); Hematocrit 27.5 VOL% (35.7-47.0); Immature Granulocytes % 0.4 %; Immature Granulocytes Absolute 0.04 #; Lymphocytes # 2.5 10*3/uL (1.4-4.0); Lymphocytes % 23.6 % (21.3-54.2); Mean Corpuscular HGB Conc 32.7 GM/DL (32-36); Mean Corpuscular Volume 81.6 FL (87-102); Mean Platelet Volume 9.6 FL (9.6-12.0); Monocytes % 11.3 % (1.7-12.7); Neutrophils % 62.1 % (38.7-73.9); Platelet Count 187 T/CUMM (130-400); Red Blood Count 3.37 MC/CUMM (3.8-5.5); Red Cell Distribution Width 15.8 % (9.3-17.3); White Blood Count 10.6 T/CUMM (4-12)
[2019-10-18 06:19] LABS: Calcium 9.8 MG/DL (8.5-10.1); Osmolality,Calculated 279.1 MOS/KG (273-304)
[2019-10-18] MEDS: amLODIPine 10 MG TABLET PO SCH (10:47)
[2019-10-18] MEDS: PANTOPRAZOLE 40 MG TABLET PO SCH ×2 (10:47→11:45)
[2019-10-18] MEDS: ISOSORBIDE DINITRATE 20 MG TABLET PO SCH (10:48)
[2019-10-18] MEDS: carvediloL 25 MG TABLET PO SCH (10:48)
[2019-10-18] MEDS: cloNIDine 0.1 MG TABLET PO SCH (10:48)
[2019-10-18 11:00] VITALS: BP 134/88
[2019-10-18] MEDS ORDERED: metroNIDAZOLE 500 MG TABLET PO ONE (11:10)
[2019-10-19] MEDS ORDERED: LEVOFLOXACIN INJ 250 MG in PREMIX 1 EACH IV SCH (06:00)
== END 2019-10-18 12:34 | disposition home or self-care (01) ==
LOC: N.EDINP 23:34 → N.ED 23:34 → N.TELEN 10-17 05:21
PROVIDERS: ADMIT Internal Medicine; ATTEND Internal Medicine

== ENCOUNTER 2019-12-12 14:37 | Inpatient (IN) ==
[2019-12-12] MEDS ORDERED: LABETALOL 20 MG/4 ML SYRINGE IV STA ×2 (15:04→17:05)
[2019-12-12 15:43] LABS: Basophils % 0.5 % (0.0-0.8); Eosinophils # 0.2 10*3/uL (0.0-0.87); Eosinophils % 2.6 % (0.00-10.9); Hematocrit 26.2 VOL% (35.7-47.0); Hemoglobin 8.4 GM/DL (12.0-16.0); Immature Granulocytes % 0.3 %; Immature Granulocytes Absolute 0.02 #; Lymphocytes # 1.6 10*3/uL (1.4-4.0); Lymphocytes % 21.5 % (21.3-54.2); Mean Corpuscular HGB Conc 32.1 GM/DL (32-36); Mean Corpuscular Volume 88.5 FL (87-102); Mean Platelet Volume 10.4 FL (9.6-12.0); Monocytes % 6.7 % (1.7-12.7); Neutrophils % 68.4 % (38.7-73.9); Platelet Count 220 T/CUMM (130-400); Red Blood Count 2.96 MC/CUMM (3.8-5.5); Red Cell Distribution Width 16.3 % (9.3-17.3); White Blood Count 7.6 T/CUMM (4-12)
[2019-12-12 16:11] LABS: Albumin 3.1 G/DL (3.4-5.0); Bilirubin,Total 0.4 MG/DL (0.2-1.0); Calcium 8.2 MG/DL (8.5-10.1); Total Protein 7.3 G/DL (6.4-8.3)
[2019-12-12] MEDS ORDERED: GLUCAGON 1 MG VIAL IM PRN (16:52)
[2019-12-12] MEDS ORDERED: DEXTROSE 10% 250 ML BAG IV PRN (16:52)
[2019-12-12] MEDS ORDERED: ONDANSETRON 4 MG/2 ML VIAL IV PRN (16:52)
[2019-12-12] MEDS ORDERED: NON-FORMULARY MEDICATION (Sucroferric Oxyhydroxide [Velphoro] 500 MG) PO SCH (17:00)
[2019-12-12] MEDS ORDERED: hydrALAZINE 20 MG/1 ML VIAL ONE (19:41)
[2019-12-12] MEDS ORDERED: hydrALAZINE 20 MG/1 ML VIAL IV ONE (20:40)
[2019-12-12] MEDS ORDERED: cloNIDine 0.1 MG TABLET PO PRN (20:51)
[2019-12-12] MEDS: LABETALOL 200 MG TABLET PO SCH (23:33)
[2019-12-13] MEDS: ACETAMINOPHEN 325 MG TABLET PO PRN (05:22)
[2019-12-13] MEDS: hydrALAZINE 20 MG/1 ML VIAL IV PRN (05:25)
[2019-12-13 05:32] LABS: Basophils % 0.4 % (0.0-0.8); Eosinophils # 0.1 10*3/uL (0.0-0.87); Eosinophils % 1.7 % (0.00-10.9); Hematocrit 26.7 VOL% (35.7-47.0); Hemoglobin 8.7 GM/DL (12.0-16.0); Immature Granulocytes % 0.5 %; Immature Granulocytes Absolute 0.04 #; Lymphocytes # 1.4 10*3/uL (1.4-4.0); Mean Corpuscular HGB Conc 32.6 GM/DL (32-36); Mean Corpuscular Volume 88.1 FL (87-102); Mean Platelet Volume 11.2 FL (9.6-12.0); Monocytes % 6.6 % (1.7-12.7); Neutrophils % 74.8 % (38.7-73.9); Platelet Count 210 T/CUMM (130-400); Red Blood Count 3.03 MC/CUMM (3.8-5.5); Red Cell Distribution Width 16.1 % (9.3-17.3); White Blood Count 8.5 T/CUMM (4-12)
[2019-12-13 06:03] LABS: Albumin 3.1 G/DL (3.4-5.0); Bilirubin,Total 0.6 MG/DL (0.2-1.0); Calcium 8.3 MG/DL (8.5-10.1); Thyroid Stimulating Hormone 1.5 uIU/ml (0.358-3.74); Total Protein 6.9 G/DL (6.4-8.3)
[2019-12-13] MEDS: PANTOPRAZOLE 40 MG TABLET PO SCH (09:59)
[2019-12-13] MEDS: LABETALOL 200 MG TABLET PO SCH ×2 (09:59→20:50)
[2019-12-13] MEDS: amLODIPine 10 MG TABLET PO SCH (09:59)
[2019-12-13] MEDS: FUROSEMIDE 40 MG/4 ML VIAL IV SCH (09:59)
[2019-12-14] MEDS: hydrALAZINE 20 MG/1 ML VIAL IV PRN (04:20)
[2019-12-14 05:00] LABS: Basophils % 0.4 % (0.0-0.8); Eosinophils # 0.3 10*3/uL (0.0-0.87); Eosinophils % 3.6 % (0.00-10.9); Hematocrit 26.2 VOL% (35.7-47.0); Hemoglobin 8.5 GM/DL (12.0-16.0); Immature Granulocytes % 0.1 %; Immature Granulocytes Absolute 0.01 #; Lymphocytes # 1.7 10*3/uL (1.4-4.0); Lymphocytes % 23.2 % (21.3-54.2); Mean Corpuscular HGB Conc 32.4 GM/DL (32-36); Mean Corpuscular Volume 88.8 FL (87-102); Mean Platelet Volume 10.6 FL (9.6-12.0); Monocytes % 8.5 % (1.7-12.7); Neutrophils % 64.2 % (38.7-73.9); Platelet Count 173 T/CUMM (130-400); Red Blood Count 2.95 MC/CUMM (3.8-5.5); Red Cell Distribution Width 16.3 % (9.3-17.3); White Blood Count 7.2 T/CUMM (4-12)
[2019-12-14 05:16] LABS: Bilirubin,Total 0.4 MG/DL (0.2-1.0); Calcium 8.8 MG/DL (8.5-10.1); Osmolality,Calculated 273.2 MOS/KG (273-304); Total Protein 6.8 G/DL (6.4-8.3)
[2019-12-14] MEDS: ACETAMINOPHEN 325 MG TABLET PO PRN ×2 (05:39→13:15)
[2019-12-14] MEDS: PANTOPRAZOLE 40 MG TABLET PO SCH (09:15)
[2019-12-14] MEDS: LABETALOL 200 MG TABLET PO SCH ×2 (09:15→20:40)
[2019-12-14] MEDS: amLODIPine 10 MG TABLET PO SCH (09:15)
[2019-12-14] MEDS: FUROSEMIDE 40 MG/4 ML VIAL IV SCH (09:15)
[2019-12-14] MEDS: hydrALAZINE 10 MG TABLET PO SCH ×2 (17:49→20:40)
[2019-12-15 07:17] LABS: Basophils % 0.6 % (0.0-0.8); Eosinophils # 0.3 10*3/uL (0.0-0.87); Eosinophils % 3.6 % (0.00-10.9); Hematocrit 27.3 VOL% (35.7-47.0); Hemoglobin 8.5 GM/DL (12.0-16.0); Immature Granulocytes % 0.1 %; Immature Granulocytes Absolute 0.01 #; Lymphocytes # 1.6 10*3/uL (1.4-4.0); Lymphocytes % 22.9 % (21.3-54.2); Mean Corpuscular HGB Conc 31.1 GM/DL (32-36); Mean Corpuscular Volume 90.1 FL (87-102); Mean Platelet Volume 10.9 FL (9.6-12.0); Monocytes % 7.5 % (1.7-12.7); Neutrophils % 65.3 % (38.7-73.9); Platelet Count 163 T/CUMM (130-400); Red Blood Count 3.03 MC/CUMM (3.8-5.5); Red Cell Distribution Width 16.2 % (9.3-17.3)
[2019-12-15 07:35] LABS: Bilirubin,Total 1.5 MG/DL (0.2-1.0); Calcium 9.5 MG/DL (8.5-10.1); Osmolality,Calculated 274.1 MOS/KG (273-304); Total Protein 7.1 G/DL (6.4-8.3)
[2019-12-15] MEDS: amLODIPine 10 MG TABLET PO SCH (08:46)
[2019-12-15] MEDS: LABETALOL 200 MG TABLET PO SCH (08:46)
[2019-12-15] MEDS: PANTOPRAZOLE 40 MG TABLET PO SCH (08:46)
[2019-12-15] MEDS: hydrALAZINE 10 MG TABLET PO SCH (08:46)
[2019-12-15] MEDS: FUROSEMIDE 40 MG/4 ML VIAL IV SCH (08:48)
[2019-12-15 12:06] VITALS: BP 171/95
== END 2019-12-15 13:15 | disposition home or self-care (01) | DRG 291 ==
LOC: N.ED 14:37 → N.EDINP 16:51 → N.3E 18:31
PROVIDERS: ADMIT Family Medicine; ATTEND Family Medicine

== ENCOUNTER 2020-02-29 06:14 | Observation (INO) ==
[2020-02-29] MEDS ORDERED: ONDANSETRON 4 MG/2 ML VIAL IV STA (06:49)
[2020-02-29] MEDS ORDERED: HYDROmorphone 2 MG/1 ML VIAL IV STA (06:49)
[2020-02-29 06:53] LABS: Basophils % 0.3 % (0.0-0.8); Eosinophils # 0.2 10*3/uL (0.0-0.87); Eosinophils % 1.5 % (0.00-10.9); Hematocrit 34.3 VOL% (35.7-47.0); Hemoglobin 11.4 GM/DL (12.0-16.0); Immature Granulocytes % 0.3 %; Immature Granulocytes Absolute 0.04 #; Lymphocytes # 1.6 10*3/uL (1.4-4.0); Lymphocytes % 12.8 % (21.3-54.2); Mean Corpuscular HGB Conc 33.2 GM/DL (32-36); Mean Corpuscular Volume 84.5 FL (87-102); Mean Platelet Volume 10.3 FL (9.6-12.0); Monocytes % 6.3 % (1.7-12.7); Neutrophils % 78.8 % (38.7-73.9); Platelet Count 297 T/CUMM (130-400); Red Blood Count 4.06 MC/CUMM (3.8-5.5); Red Cell Distribution Width 14.6 % (9.3-17.3); White Blood Count 12.3 T/CUMM (4-12)
[2020-02-29 07:11] LABS: Albumin 4.3 G/DL (3.4-5.0); Bilirubin,Total 0.4 MG/DL (0.2-1.0); Calcium 10.3 MG/DL (8.5-10.1); Osmolality,Calculated 280.5 MOS/KG (273-304); Total Protein 9.2 G/DL (6.4-8.3)
[2020-02-29] MEDS ORDERED: PROMETHAZINE 25 MG/1 ML VIAL ONE (08:14)
[2020-02-29] MEDS ORDERED: PROMETHAZINE 25 MG/1 ML VIAL IM STA (08:17)
[2020-02-29] MEDS ORDERED: ALUM/MAG/SIMETH/LIDO VISC 1:1 30 ML BOTTLE PO ONE (10:09)
[2020-02-29] MEDS ORDERED: ALUM/MAG/SIMETH/LIDO VISC 1:1 30 ML BOTTLE PO STA (10:10)
[2020-02-29] MEDS ORDERED: DEXTROSE 50% 25 GM/50 ML VIAL IV PRN (14:07)
[2020-02-29] MEDS ORDERED: GLUCAGON 1 MG VIAL IM PRN (14:07)
[2020-02-29] MEDS ORDERED: ACETAMINOPHEN 325 MG TABLET PO PRN (14:07)
[2020-02-29] MEDS ORDERED: DOCUSATE SODIUM 100 MG CAPSULE PO PRN (14:07)
[2020-02-29] MEDS ORDERED: PROMETHAZINE 25 MG/1 ML VIAL IM PRN (14:07)
[2020-02-29] MEDS ORDERED: hydrALAZINE 20 MG/1 ML VIAL IV PRN (14:07)
[2020-02-29] MEDS ORDERED: hydrALAZINE 20 MG/1 ML VIAL IV ONE (14:16)
[2020-02-29] MEDS ORDERED: MAGNESIUM CITRATE 300 ML BOTTLE PO ONE (14:23)
[2020-02-29] MEDS ORDERED: DICYCLOMINE 10 MG CAPSULE PO SCH (15:00)
[2020-02-29 15:08] LABS: Thyroid Stimulating Hormone 0.616 uIU/ml (0.358-3.74)
[2020-02-29] MEDS: amLODIPine 10 MG TABLET PO SCH (15:18)
[2020-02-29] MEDS: HEPARIN 5,000 UNIT/1 ML VIAL SUBCUT SCH (15:19)
[2020-02-29] MEDS: ONDANSETRON 4 MG/2 ML VIAL IV PRN ×2 (15:25→20:39)
[2020-02-29] MEDS: NON-FORMULARY MEDICATION (Sucroferric Oxyhydroxide [Velphoro] 1,000 MG) PO SCH (18:27)
[2020-02-29] MEDS: LABETALOL 200 MG TABLET PO SCH (20:40)
[2020-02-29] MEDS: hydrALAZINE 10 MG TABLET PO SCH (20:40)
[2020-02-29 21:00] LABS: Apearance,Urine CLEAR (Clear); Bacteria,Urine Occasional /HPF (Few); Bilirubin,Urine Negative (Negative); Blood, Urine Negative (Negative); Glucose,Urine (UA) 150 mg/dL (Negative); Hyaline Casts,Urine 3 /LPF (0-3); Ketones,Urine 5 mg/dL (Negative); Nitrite,Urine Negative (Negative); Protein,Urine >=500 MG/DL; RBC,Urine 3 /HPF (0-4); Squamous Epithelial Cell,Urine Occasional /HPF (0-10); Urine Color Yellow (Yellow); Urine Specific Gravity 1.015 (1.001-1.035); Urine Urobilinogen < 2.0 EU/DL (0.2-1.0); WBC,Urine 13 /HPF (0-6)
[2020-02-29 21:04] LABS: Barbiturates Screen,Urine Negative (Negative); Benzodiazepines Screen,Urine Negative (Negative); Cannabinoid Screen,Urine Negative (Negative); Opiate Screen,Urine Negative (Negative); Phencyclidine Screen,Urine Negative (Negative)
[2020-03-01] MEDS: HEPARIN 5,000 UNIT/1 ML VIAL SUBCUT SCH ×2 (01:30→16:06)
[2020-03-01] MEDS: ONDANSETRON 4 MG/2 ML VIAL IV PRN ×2 (04:21→19:28)
[2020-03-01 05:54] LABS: Basophils % 0.3 % (0.0-0.8); Eosinophils # 0.1 10*3/uL (0.0-0.87); Eosinophils % 1.2 % (0.00-10.9); Hematocrit 30.3 VOL% (35.7-47.0); Immature Granulocytes % 0.5 %; Immature Granulocytes Absolute 0.05 #; Lymphocytes # 2.2 10*3/uL (1.4-4.0); Lymphocytes % 20.1 % (21.3-54.2); Mean Corpuscular Volume 84.4 FL (87-102); Mean Platelet Volume 11.2 FL (9.6-12.0); Monocytes % 9.2 % (1.7-12.7); Neutrophils % 68.7 % (38.7-73.9); Platelet Count 274 T/CUMM (130-400); Red Blood Count 3.59 MC/CUMM (3.8-5.5); Red Cell Distribution Width 14.6 % (9.3-17.3)
[2020-03-01 06:29] LABS: Calcium 10.2 MG/DL (8.5-10.1); Osmolality,Calculated 287.1 MOS/KG (273-304)
[2020-03-01] MEDS: hydrALAZINE 10 MG TABLET PO SCH ×2 (08:09→21:27)
[2020-03-01] MEDS: LABETALOL 200 MG TABLET PO SCH ×2 (08:09→21:27)
[2020-03-01] MEDS: amLODIPine 10 MG TABLET PO SCH (08:09)
[2020-03-01] MEDS: NON-FORMULARY MEDICATION (Sucroferric Oxyhydroxide [Velphoro] 1,000 MG) PO SCH ×3 (08:10→16:06)
[2020-03-01] MEDS: PANTOPRAZOLE 40 MG TABLET PO SCH (10:20)
[2020-03-02] MEDS: HEPARIN 5,000 UNIT/1 ML VIAL SUBCUT SCH (05:14)
[2020-03-02 06:24] LABS: Basophils # 0.1 10*3/uL (0.0-0.2); Basophils % 0.5 % (0.0-0.8); Eosinophils # 0.3 10*3/uL (0.0-0.87); Eosinophils % 2.8 % (0.00-10.9); Hematocrit 33.5 VOL% (35.7-47.0); Hemoglobin 11.1 GM/DL (12.0-16.0); Immature Granulocytes % 0.4 %; Immature Granulocytes Absolute 0.04 #; Lymphocytes # 2.6 10*3/uL (1.4-4.0); Lymphocytes % 24.3 % (21.3-54.2); Mean Corpuscular HGB Conc 33.1 GM/DL (32-36); Mean Corpuscular Volume 84.4 FL (87-102); Mean Platelet Volume 10.5 FL (9.6-12.0); Monocytes % 9.2 % (1.7-12.7); Neutrophils % 62.8 % (38.7-73.9); Platelet Count 250 T/CUMM (130-400); Red Blood Count 3.97 MC/CUMM (3.8-5.5); Red Cell Distribution Width 14.3 % (9.3-17.3); White Blood Count 10.7 T/CUMM (4-12)
[2020-03-02 06:54] LABS: Calcium 10.1 MG/DL (8.5-10.1); Osmolality,Calculated 277.5 MOS/KG (273-304)
[2020-03-02] MEDS: amLODIPine 10 MG TABLET PO SCH (08:38)
[2020-03-02] MEDS: LABETALOL 200 MG TABLET PO SCH (08:38)
[2020-03-02] MEDS: NON-FORMULARY MEDICATION (Sucroferric Oxyhydroxide [Velphoro] 1,000 MG) PO SCH (08:38)
[2020-03-02] MEDS: PANTOPRAZOLE 40 MG TABLET PO SCH (08:38)
[2020-03-02] MEDS: hydrALAZINE 10 MG TABLET PO SCH (08:39)
[2020-03-02 12:24] VITALS: BP 157/99
== END 2020-03-02 12:12 | disposition home or self-care (01) ==
LOC: N.EDINP 06:14 → N.ED 06:14 → SUATTDRO 13:37 → INTOOBSV 13:38 → N.EDINP 13:38 → N.3E 14:47
PROVIDERS: ADMIT Emergency Medicine; ATTEND Internal Medicine

== ENCOUNTER 2020-05-24 14:40 | Inpatient (IN) ==
[2020-05-24] MEDS ORDERED: SODIUM CHLORIDE 0.9% 1,000 ML IV STA (19:02)
[2020-05-24] MEDS ORDERED: ACETAMINOPHEN 500 MG TABLET PO STA (19:02)
[2020-05-24 19:14] LABS: Basophils % 0.1 % (0.0-0.8); Hemoglobin 7.7 GM/DL (12.0-16.0); Immature Granulocytes % 0.7 %; Immature Granulocytes Absolute 0.08 #; Lymphocytes # 0.9 10*3/uL (1.4-4.0); Lymphocytes % 7.9 % (21.3-54.2); Mean Corpuscular HGB Conc 33.5 GM/DL (32-36); Mean Corpuscular Volume 81.3 FL (87-102); Mean Platelet Volume 11.7 FL (9.6-12.0); Monocytes % 4.1 % (1.7-12.7); Neutrophils % 87.2 % (38.7-73.9); Platelet Count 166 T/CUMM (130-400); Red Blood Count 2.83 MC/CUMM (3.8-5.5); Red Cell Distribution Width 15.1 % (9.3-17.3); White Blood Count 11.9 T/CUMM (4-12)
[2020-05-24 19:40] LABS: Albumin 3.1 G/DL (3.4-5.0); Bilirubin,Total 0.5 MG/DL (0.2-1.0); Calcium 8.6 MG/DL (8.5-10.1); Ferritin 719.9 ng/ml (8-252); Osmolality,Calculated 292.5 MOS/KG (273-304); Total Protein 7.7 G/DL (6.4-8.3)
[2020-05-24] MEDS ORDERED: AZITHROMYCIN 250 MG TABLET PO STA (20:02)
[2020-05-24] MEDS ORDERED: DEXAMETHASONE 4 MG/1 ML VIAL IV STA (20:03)
[2020-05-24] MEDS ORDERED: hydrALAZINE 20 MG/1 ML VIAL IV PRN (22:17)
[2020-05-24] MEDS ORDERED: diphenhydrAMINE CAP 25 MG CAPSULE PO PRN (22:17)
[2020-05-24] MEDS ORDERED: SIMETHICONE CHEW 125 MG TABLET PO PRN (22:17)
[2020-05-24] MEDS ORDERED: ONDANSETRON 4 MG/2 ML VIAL IV PRN (22:17)
[2020-05-24] MEDS ORDERED: ALUMINUM/MAGNES/SIMETH MAX STR 30 ML UDCUP PO PRN (22:17)
[2020-05-24] MEDS ORDERED: GLUCAGON 1 MG VIAL IM PRN (22:17)
[2020-05-24] MEDS ORDERED: ACETAMINOPHEN 325 MG TABLET PO PRN (22:17)
[2020-05-24] MEDS ORDERED: guaiFENesin/DM ER 600-30 MG TABLET PO PRN (22:17)
[2020-05-24] MEDS ORDERED: MORPHINE 4 MG/1 ML VIAL IV PRN (22:17)
[2020-05-24] MEDS ORDERED: ZALEPLON 5 MG CAPSULE PO PRN (22:17)
[2020-05-24] MEDS ORDERED: PROMETHAZINE 25 MG/1 ML VIAL IM PRN (22:17)
[2020-05-24] MEDS ORDERED: DEXTROSE 50% 25 GM/50 ML VIAL IV PRN (22:17)
[2020-05-24] MEDS ORDERED: DOCUSATE SODIUM 100 MG CAPSULE PO PRN (22:17)
[2020-05-24] MEDS ORDERED: NICOTINE 21 MG/24 HR PATCH TRANSDERM PRN (22:17)
[2020-05-24] MEDS ORDERED: cefTRIAXone 1,000 MG in SYRINGE 1 EACH IV SCH (22:30)
[2020-05-24] MEDS ORDERED: AZITHROMYCIN INJ 500 MG in SODIUM CHLORIDE 0.9% 250 ML IV SCH (22:30)
[2020-05-24] MEDS ORDERED: SODIUM CHLORIDE 0.9% 1,000 ML IV SCH (22:30)
[2020-05-24] MEDS ORDERED: SODIUM CHLORIDE 0.9% 1,000 ML IV PRN (22:30)
[2020-05-25 06:36] LABS: Basophils % 0.1 % (0.0-0.8); Hematocrit 25.6 VOL% (35.7-47.0); Hemoglobin 8.7 GM/DL (12.0-16.0); Immature Granulocytes % 1.5 %; Lymphocytes # 0.6 10*3/uL (1.4-4.0); Lymphocytes % 4.5 % (21.3-54.2); Mean Corpuscular Volume 81.3 FL (87-102); Mean Platelet Volume 10.9 FL (9.6-12.0); Monocytes % 1.7 % (1.7-12.7); Neutrophils % 92.2 % (38.7-73.9); Platelet Count 159 T/CUMM (130-400); Red Blood Count 3.15 MC/CUMM (3.8-5.5); Red Cell Distribution Width 15.8 % (9.3-17.3); White Blood Count 13.5 T/CUMM (4-12)
[2020-05-25 06:56] LABS: Bilirubin,Total 0.5 MG/DL (0.2-1.0); Calcium 9.4 MG/DL (8.5-10.1); Osmolality,Calculated 294.5 MOS/KG (273-304); Total Protein 7.7 G/DL (6.4-8.3)
[2020-05-25 07:04] LABS: Hypochromasia 1+; Lymphocytes 4 % (20-55); Microcytosis 1+; Ovalocytes Slight; Platelet Estimate Adequate; Segmented Neutrophils 95 % (50-85); Total Cells Counted 100
[2020-05-25] MEDS ORDERED: POLYETHYLENE GLYCOL POWDER 17 GM PACK PO PRN (07:36)
[2020-05-25] MEDS ORDERED: AZITHROMYCIN 250 MG TABLET PO SCH (09:00)
[2020-05-25] MEDS ORDERED: LABETALOL 200 MG TABLET PO SCH (09:00)
[2020-05-25] MEDS ORDERED: amLODIPine 10 MG TABLET PO SCH (09:00)
[2020-05-25] MEDS ORDERED: DEXAMETHASONE 4 MG TABLET PO SCH (09:00)
[2020-05-25] MEDS ORDERED: PANTOPRAZOLE 40 MG TABLET PO SCH (09:00)
[2020-05-25] MEDS ORDERED: hydrALAZINE 10 MG TABLET PO SCH (09:00)
[2020-05-25 12:49] VITALS: BP 157/92
== END 2020-05-25 13:16 | disposition home or self-care (01) | DRG 177 ==
LOC: N.ED 14:40 → N.EDINP 22:17 → N.2E 05-25
PROVIDERS: ADMIT Hospitalist; ATTEND Hospitalist

== ENCOUNTER 2020-06-22 12:59 | Inpatient (IN) ==
[2020-06-22] MEDS ORDERED: NITROGLYCERIN 2% OINT 1 INCH/GM PACK TOP STA (16:53)
[2020-06-22] MEDS ORDERED: ASPIRIN 325 MG TABLET PO STA (16:53)
[2020-06-22] MEDS ORDERED: NITROGLYCERIN 2% OINT 1 INCH/GM PACK TOP ONE (16:54)
[2020-06-22 17:06] LABS: Basophils % 0.4 % (0.0-0.8); Eosinophils # 0.4 10*3/uL (0.0-0.87); Eosinophils % 5.5 % (0.00-10.9); Immature Granulocytes % 0.3 %; Immature Granulocytes Absolute 0.02 #; Lymphocytes # 1.1 10*3/uL (1.4-4.0); Lymphocytes % 16.2 % (21.3-54.2); Mean Corpuscular HGB Conc 33.3 GM/DL (32-36); Mean Corpuscular Volume 78.7 FL (87-102); Mean Platelet Volume 10.1 FL (9.6-12.0); Neutrophils % 69.6 % (38.7-73.9); Platelet Count 259 T/CUMM (130-400); Red Blood Count 2.25 MC/CUMM (3.8-5.5); Red Cell Distribution Width 17.1 % (9.3-17.3); White Blood Count 6.9 T/CUMM (4-12)
[2020-06-22 17:09] LABS: Hematocrit 17.7 VOL% (35.7-47.0); Hemoglobin 5.9 GM/DL (12.0-16.0)
[2020-06-22 17:18] LABS: INR 0.9; PT Patient Result 10.1 SECS (9.8-11.9)
[2020-06-22 17:36] LABS: Alanine Aminotransferase 27 U/L (13-56); Albumin 3.3 G/DL (3.4-5.0); Alkaline Phosphatase 87 U/L (45-117); Aspartate Amino Transferase 16 U/L (0-37); Blood Urea Nitrogen 134 MG/DL (7-18); Calcium 9.4 MG/DL (8.5-10.1); Estimated Glom Filtration Rate 3 ML/MIN; Glucose 93 MG/DL (74-106); Total Protein 7.4 G/DL (6.4-8.3)
[2020-06-22 17:39] LABS: Troponin I 0.138 NG/ML (0.00-0.045)
[2020-06-22] MEDS ORDERED: cloNIDine 0.1 MG TABLET PO STA (17:49)
[2020-06-22] MEDS ORDERED: LABETALOL 20 MG/4 ML SYRINGE IV STA ×2 (17:49→18:46)
[2020-06-22 18:14] LABS: Bilirubin,Urine Negative (Negative); Blood, Urine Negative (Negative); Glucose,Urine (UA) 50 mg/dL (Negative); Ketones,Urine Negative (Negative); Nitrite,Urine Negative (Negative); Protein,Urine 100 MG/DL; Squamous Epithelial Cell,Urine Few /HPF (0-10); Urine Appearance Slightly Hazy (Clear); Urine Color Straw (Yellow); Urine Urobilinogen < 2.0 EU/DL (0.2-1.0); WBC,Urine 5 /HPF (0-6)
[2020-06-22] MEDS ORDERED: DEXTROSE 50% 25 GM/50 ML VIAL IV PRN (18:37)
[2020-06-22] MEDS ORDERED: GLUCAGON 1 MG VIAL IM PRN (18:37)
[2020-06-22] MEDS ORDERED: ONDANSETRON 4 MG/2 ML VIAL IV PRN (18:37)
[2020-06-22] MEDS ORDERED: POLYETHYLENE GLYCOL POWDER 17 GM PACK PO PRN (18:40)
[2020-06-22] MEDS ORDERED: ENOXAPARIN 30 MG/0.3 ML SYRINGE SUBCUT SCH (19:00)
[2020-06-22] MEDS: ALBUTEROL/IPRATROPIUM 3 ML NEB RESP TX SCH (20:21)
[2020-06-22] MEDS ORDERED: LABETALOL 200 MG TABLET PO SCH (21:00)
[2020-06-22] MEDS: hydrALAZINE 10 MG TABLET PO SCH (21:18)
[2020-06-23] MEDS: hydrALAZINE 20 MG/1 ML VIAL IV PRN ×3 (01:20→17:11)
[2020-06-23] MEDS: ALBUTEROL/IPRATROPIUM 3 ML NEB RESP TX SCH ×4 (01:43→19:15)
[2020-06-23] MEDS ORDERED: LABETALOL 20 MG/4 ML SYRINGE IV STA (03:46)
[2020-06-23] MEDS ORDERED: SODIUM CHLORIDE 0.9% 1,000 ML IV PRN ×2 (03:51→08:02)
[2020-06-23 05:58] LABS: Basophils % 0.3 % (0.0-0.8); Eosinophils # 0.3 10*3/uL (0.0-0.87); Eosinophils % 4.7 % (0.00-10.9); Immature Granulocytes % 0.3 %; Immature Granulocytes Absolute 0.02 #; Lymphocytes # 0.8 10*3/uL (1.4-4.0); Lymphocytes % 12.6 % (21.3-54.2); Mean Corpuscular HGB Conc 32.7 GM/DL (32-36); Mean Corpuscular Volume 79.2 FL (87-102); Mean Platelet Volume 9.8 FL (9.6-12.0); Neutrophils % 75.1 % (38.7-73.9); Platelet Count 249 T/CUMM (130-400); Red Blood Count 2.12 MC/CUMM (3.8-5.5); White Blood Count 6.6 T/CUMM (4-12)
[2020-06-23 06:09] LABS: Hematocrit 16.8 VOL% (35.7-47.0); Hemoglobin 5.5 GM/DL (12.0-16.0)
[2020-06-23 06:14] LABS: Calcium 9.4 MG/DL (8.5-10.1); Osmolality,Calculated 312.1 MOS/KG (273-304)
[2020-06-23] MEDS ORDERED: hydrALAZINE 10 MG TABLET PO ONE (06:43)
[2020-06-23] MEDS ORDERED: amLODIPine 10 MG TABLET PO STA (06:49)
[2020-06-23] MEDS ORDERED: LABETALOL 200 MG TABLET PO STA (06:50)
[2020-06-23] MEDS: hydrALAZINE 10 MG TABLET PO SCH (08:38)
[2020-06-23] MEDS: LABETALOL 200 MG TABLET PO SCH ×2 (08:39→20:30)
[2020-06-23] MEDS ORDERED: amLODIPine 10 MG TABLET PO SCH (09:00)
[2020-06-23] MEDS: PANTOPRAZOLE 40 MG TABLET PO SCH (09:32)
[2020-06-23] MEDS: FUROSEMIDE 40 MG/4 ML VIAL IV SCH (16:36)
[2020-06-23 19:43] LABS: Hematocrit 22.2 VOL% (35.7-47.0)
[2020-06-23 19:44] LABS: Hemoglobin 7.7 GM/DL (12.0-16.0)
[2020-06-23] MEDS: ACETAMINOPHEN 325 MG TABLET PO PRN (20:30)
[2020-06-24] MEDS: ALBUTEROL/IPRATROPIUM 3 ML NEB RESP TX SCH ×2 (01:23→08:05)
[2020-06-24] MEDS: ACETAMINOPHEN 325 MG TABLET PO PRN (03:31)
[2020-06-24 04:19] LABS: Basophils % 0.4 % (0.0-0.8); Eosinophils # 0.2 10*3/uL (0.0-0.87); Eosinophils % 4.1 % (0.00-10.9); Hematocrit 21.8 VOL% (35.7-47.0); Hemoglobin 7.3 GM/DL (12.0-16.0); Immature Granulocytes % 0.4 %; Immature Granulocytes Absolute 0.02 #; Lymphocytes % 18.9 % (21.3-54.2); Mean Corpuscular HGB Conc 33.5 GM/DL (32-36); Mean Corpuscular Volume 80.7 FL (87-102); Mean Platelet Volume 10.1 FL (9.6-12.0); Monocytes % 12.4 % (1.7-12.7); Neutrophils % 63.8 % (38.7-73.9); Platelet Count 233 T/CUMM (130-400); Red Cell Distribution Width 17.1 % (9.3-17.3); White Blood Count 5.1 T/CUMM (4-12)
[2020-06-24 04:49] LABS: Calcium 9.5 MG/DL (8.5-10.1); Osmolality,Calculated 292.8 MOS/KG (273-304)
[2020-06-24] MEDS: LABETALOL 200 MG TABLET PO SCH (08:34)
[2020-06-24] MEDS: PANTOPRAZOLE 40 MG TABLET PO SCH (08:34)
[2020-06-24] MEDS: hydrALAZINE 20 MG/1 ML VIAL IV PRN (08:41)
[2020-06-24] MEDS: FUROSEMIDE 40 MG/4 ML VIAL IV SCH (08:42)
[2020-06-24 09:22] VITALS: BP 175/107
== END 2020-06-24 11:10 | disposition home or self-care (01) | DRG 291 ==
LOC: N.EDINP 12:59 → N.ED 12:59 → SUATTDRO 18:37 → N.TELES 20:08
PROVIDERS: ADMIT Internal Medicine; ATTEND Internal Medicine

== ENCOUNTER 2020-08-01 20:19 | Observation (INO) ==
[2020-08-01] MEDS ORDERED: FUROSEMIDE 100 MG/10 ML VIAL IV STA (21:31)
[2020-08-01] MEDS ORDERED: ONDANSETRON 4 MG/2 ML VIAL IV STA (21:31)
[2020-08-01] MEDS ORDERED: MORPHINE 4 MG/1 ML VIAL IV STA (21:31)
[2020-08-01 21:42] LABS: Basophils % 0.3 % (0.0-0.8); Eosinophils # 0.2 10*3/uL (0.0-0.87); Eosinophils % 2.6 % (0.00-10.9); Hematocrit 20.4 VOL% (35.7-47.0); Hemoglobin 6.5 GM/DL (12.0-16.0); Immature Granulocytes % 0.4 %; Immature Granulocytes Absolute 0.03 #; Lymphocytes # 0.6 10*3/uL (1.4-4.0); Lymphocytes % 8.3 % (21.3-54.2); Mean Corpuscular HGB Conc 31.9 GM/DL (32-36); Mean Corpuscular Volume 81.9 FL (87-102); Mean Platelet Volume 11.7 FL (9.6-12.0); Monocytes % 6.7 % (1.7-12.7); Neutrophils % 81.7 % (38.7-73.9); Platelet Count 289 T/CUMM (130-400); Red Blood Count 2.49 MC/CUMM (3.8-5.5); Red Cell Distribution Width 16.5 % (9.3-17.3); White Blood Count 7.6 T/CUMM (4-12)
[2020-08-01 21:52] LABS: PT Patient Result 10.9 SECS (9.8-11.9)
[2020-08-01 22:08] LABS: Albumin 3.8 G/DL (3.4-5.0); Bilirubin,Total 0.6 MG/DL (0.2-1.0); Calcium 9.5 MG/DL (8.5-10.1); Osmolality,Calculated 316.1 MOS/KG (273-304); Potassium 4.7 MMOL/L (3.5-5.1); Total Protein 7.9 G/DL (6.4-8.3)
[2020-08-01] MEDS ORDERED: guaiFENesin/DM ER 600-30 MG TABLET PO PRN (23:03)
[2020-08-01] MEDS ORDERED: diphenhydrAMINE CAP 25 MG CAPSULE PO PRN (23:03)
[2020-08-01] MEDS ORDERED: GLUCAGON 1 MG VIAL IM PRN (23:03)
[2020-08-01] MEDS ORDERED: BISACODYL 5 MG TABLET PO PRN (23:03)
[2020-08-01] MEDS ORDERED: ZALEPLON 5 MG CAPSULE PO PRN (23:03)
[2020-08-01] MEDS ORDERED: ONDANSETRON 4 MG/2 ML VIAL IV PRN (23:03)
[2020-08-01] MEDS ORDERED: DEXTROSE 50% 25 GM/50 ML VIAL IV PRN (23:03)
[2020-08-01] MEDS ORDERED: ACETAMINOPHEN 325 MG TABLET PO PRN (23:03)
[2020-08-01] MEDS ORDERED: NICOTINE 21 MG/24 HR PATCH TRANSDERM PRN (23:03)
[2020-08-01] MEDS ORDERED: SODIUM CHLORIDE 0.9% 1,000 ML IV PRN (23:07)
[2020-08-01] MEDS: PROMETHAZINE 25 MG/1 ML VIAL IM PRN (23:18)
[2020-08-02] MEDS: ALBUTEROL/IPRATROPIUM 3 ML NEB RESP TX SCH ×4 (00:28→19:06)
[2020-08-02 05:50] LABS: Basophils % 0.3 % (0.0-0.8); Eosinophils # 0.1 10*3/uL (0.0-0.87); Eosinophils % 0.9 % (0.00-10.9); Hematocrit 20.6 VOL% (35.7-47.0); Hemoglobin 6.5 GM/DL (12.0-16.0); Immature Granulocytes % 0.7 %; Immature Granulocytes Absolute 0.07 #; Lymphocytes # 0.6 10*3/uL (1.4-4.0); Lymphocytes % 6.6 % (21.3-54.2); Mean Corpuscular HGB Conc 31.6 GM/DL (32-36); Mean Corpuscular Volume 82.7 FL (87-102); Mean Platelet Volume 11.5 FL (9.6-12.0); Monocytes % 6.3 % (1.7-12.7); Neutrophils % 85.2 % (38.7-73.9); Platelet Count 294 T/CUMM (130-400); Red Blood Count 2.49 MC/CUMM (3.8-5.5); Red Cell Distribution Width 16.7 % (9.3-17.3); White Blood Count 9.4 T/CUMM (4-12)
[2020-08-02] MEDS ORDERED: POLYETHYLENE GLYCOL POWDER 17 GM PACK PO PRN (06:04)
[2020-08-02 06:22] LABS: Calcium 9.5 MG/DL (8.5-10.1); Osmolality,Calculated 317.8 MOS/KG (273-304); Potassium 4.8 MMOL/L (3.5-5.1)
[2020-08-02] MEDS: PROMETHAZINE 25 MG/1 ML VIAL IM PRN (06:30)
[2020-08-02] MEDS: FUROSEMIDE 40 MG/4 ML VIAL IV SCH ×2 (07:26→15:03)
[2020-08-02] MEDS ORDERED: hydrALAZINE 20 MG/1 ML VIAL IV PRN (07:36)
[2020-08-02] MEDS: NON-FORMULARY MEDICATION (Sucroferric Oxyhydroxide [Velphoro] 500 mg tablet,chewable) PO SCH ×3 (10:31→18:31)
[2020-08-02 10:51] LABS: Hepatitis B Core IgM Quant 0.68 Index; Hepatitis B Surface Ag Quant < 0.10 Index; Hepatitis B Surface Ag Result Non-Reactive (NonReactive); Hepatitis C Virus Ab Quant 0.06 Index; Hepatitis C Virus Ab Result Non-Reactive (NonReactive)
[2020-08-02] MEDS: PANTOPRAZOLE 40 MG TABLET PO SCH (14:31)
[2020-08-02] MEDS: LABETALOL 200 MG TABLET PO SCH ×2 (14:31→21:34)
[2020-08-03 01:40] LABS: Hematocrit 20.1 VOL% (35.7-47.0); Hemoglobin 6.7 GM/DL (12.0-16.0)
[2020-08-03] MEDS: ALBUTEROL/IPRATROPIUM 3 ML NEB RESP TX SCH ×4 (02:35→18:39)
[2020-08-03 08:03] LABS: Basophils % 0.4 % (0.0-0.8); Eosinophils # 0.1 10*3/uL (0.0-0.87); Eosinophils % 1.4 % (0.00-10.9); Hematocrit 19.8 VOL% (35.7-47.0); Hemoglobin 6.8 GM/DL (12.0-16.0); Immature Granulocytes % 0.5 %; Immature Granulocytes Absolute 0.04 #; Lymphocytes # 0.9 10*3/uL (1.4-4.0); Lymphocytes % 10.6 % (21.3-54.2); Mean Corpuscular HGB Conc 34.3 GM/DL (32-36); Mean Corpuscular Volume 80.5 FL (87-102); Mean Platelet Volume 11.2 FL (9.6-12.0); Monocytes % 8.8 % (1.7-12.7); Neutrophils % 78.3 % (38.7-73.9); Platelet Count 223 T/CUMM (130-400); Red Blood Count 2.46 MC/CUMM (3.8-5.5); Red Cell Distribution Width 16.4 % (9.3-17.3); White Blood Count 8.4 T/CUMM (4-12)
[2020-08-03 08:31] LABS: Calcium 9.6 MG/DL (8.5-10.1)
[2020-08-03] MEDS ORDERED: SODIUM CHLORIDE 0.9% 1,000 ML IV PRN ×2 (08:49→09:01)
[2020-08-03] MEDS: FUROSEMIDE 40 MG/4 ML VIAL IV SCH ×2 (09:08→16:01)
[2020-08-03] MEDS: LABETALOL 200 MG TABLET PO SCH ×2 (09:09→20:30)
[2020-08-03] MEDS: PANTOPRAZOLE 40 MG TABLET PO SCH (09:09)
[2020-08-03] MEDS: MULTIVITAMIN (CENTRUM) TABLET PO SCH (09:10)
[2020-08-03] MEDS: NON-FORMULARY MEDICATION (Sucroferric Oxyhydroxide [Velphoro] 500 mg tablet,chewable) PO SCH ×3 (09:16→20:22)
[2020-08-03 18:36] LABS: Hematocrit 24.9 VOL% (35.7-47.0); Hemoglobin 8.4 GM/DL (12.0-16.0)
[2020-08-04] MEDS: ALBUTEROL/IPRATROPIUM 3 ML NEB RESP TX SCH ×2 (01:28→07:34)
[2020-08-04 04:56] LABS: Basophils % 0.4 % (0.0-0.8); Eosinophils # 0.2 10*3/uL (0.0-0.87); Eosinophils % 2.8 % (0.00-10.9); Hematocrit 21.3 VOL% (35.7-47.0); Immature Granulocytes % 0.5 %; Immature Granulocytes Absolute 0.04 #; Lymphocytes # 1.1 10*3/uL (1.4-4.0); Lymphocytes % 14.8 % (21.3-54.2); Mean Corpuscular HGB Conc 32.9 GM/DL (32-36); Mean Corpuscular Volume 82.9 FL (87-102); Mean Platelet Volume 10.8 FL (9.6-12.0); Monocytes % 12.4 % (1.7-12.7); Neutrophils % 69.1 % (38.7-73.9); Platelet Count 188 T/CUMM (130-400); Red Blood Count 2.57 MC/CUMM (3.8-5.5); Red Cell Distribution Width 15.7 % (9.3-17.3); White Blood Count 7.6 T/CUMM (4-12)
[2020-08-04 05:25] LABS: Calcium 9.2 MG/DL (8.5-10.1); Osmolality,Calculated 280.1 MOS/KG (273-304); Potassium 3.5 MMOL/L (3.5-5.1)
[2020-08-04] MEDS: MULTIVITAMIN (CENTRUM) TABLET PO SCH (09:06)
[2020-08-04] MEDS: LABETALOL 200 MG TABLET PO SCH (09:06)
[2020-08-04] MEDS: FUROSEMIDE 40 MG/4 ML VIAL IV SCH (09:09)
[2020-08-04] MEDS: NON-FORMULARY MEDICATION (Sucroferric Oxyhydroxide [Velphoro] 500 mg tablet,chewable) PO SCH ×2 (09:10→12:39)
[2020-08-04] MEDS: PANTOPRAZOLE 40 MG TABLET PO SCH (09:11)
[2020-08-04] MEDS ORDERED: FERROUS SULFATE 325 MG TABLET PO SCH (09:30)
[2020-08-04 12:12] VITALS: BP 159/98
[2020-08-04 13:04] LABS: Barbiturates Screen,Urine Negative (Negative); Benzodiazepines Screen,Urine Negative (Negative); Cannabinoid Screen,Urine Negative (Negative); Opiate Screen,Urine Negative (Negative); Phencyclidine Screen,Urine Negative (Negative)
== END 2020-08-04 14:30 | disposition home or self-care (01) ==
LOC: N.EDINP 20:19 → N.ED 20:19 → SUATTDRO 23:03 → N.EDINP 08-02 03:15 → N.TELEN 08-02 03:32
PROVIDERS: ADMIT Emergency Medicine; ATTEND Internal Medicine

== ENCOUNTER 2020-08-06 22:45 | Inpatient (IN) ==
[2020-08-06 23:05] LABS: Basophils % 0.5 % (0.0-0.8); Eosinophils # 0.3 10*3/uL (0.0-0.87); Immature Granulocytes % 0.2 %; Immature Granulocytes Absolute 0.02 #; Lymphocytes # 0.8 10*3/uL (1.4-4.0); Mean Corpuscular Volume 83.9 FL (87-102); Mean Platelet Volume 9.9 FL (9.6-12.0); Monocytes % 6.9 % (1.7-12.7); Neutrophils % 78.4 % (38.7-73.9); Platelet Count 258 T/CUMM (130-400); Red Blood Count 2.98 MC/CUMM (3.8-5.5); Red Cell Distribution Width 15.7 % (9.3-17.3); White Blood Count 8.4 T/CUMM (4-12)
[2020-08-06 23:24] LABS: Albumin 3.5 G/DL (3.4-5.0); Bilirubin,Total 0.5 MG/DL (0.2-1.0); Calcium 10.1 MG/DL (8.5-10.1); Osmolality,Calculated 289.1 MOS/KG (273-304); Potassium 3.7 MMOL/L (3.5-5.1); Total Protein 8.1 G/DL (6.4-8.3)
[2020-08-07] MEDS ORDERED: hydrALAZINE 20 MG/1 ML VIAL IV STA (00:39)
[2020-08-07] MEDS ORDERED: ALBUTEROL/IPRATROPIUM 3 ML NEB RESP TX STA (00:39)
[2020-08-07] MEDS ORDERED: ONDANSETRON 4 MG/2 ML VIAL IV STA (00:39)
[2020-08-07] MEDS ORDERED: NITROGLYCERIN 2% OINT 1 INCH/GM PACK TOP STA (00:39)
[2020-08-07] MEDS ORDERED: methylPREDNISolone SOD SUC 125 MG/2 ML VIAL IV STA (00:40)
[2020-08-07] MEDS ORDERED: GLUCAGON 1 MG VIAL IM PRN (02:34)
[2020-08-07] MEDS ORDERED: DEXTROSE 50% 25 GM/50 ML VIAL IV PRN (02:34)
[2020-08-07] MEDS ORDERED: ONDANSETRON 4 MG/2 ML VIAL IV PRN (02:34)
[2020-08-07] MEDS: hydrALAZINE 20 MG/1 ML VIAL IV PRN ×5 (03:32→11:53)
[2020-08-07] MEDS: ACETAMINOPHEN 325 MG TABLET PO PRN (05:24)
[2020-08-07] MEDS: NITROGLYCERIN 2% OINT 1 INCH/GM PACK TOP SCH ×3 (06:45→23:45)
[2020-08-07] MEDS: MORPHINE 4 MG/1 ML VIAL IV PRN (06:45)
[2020-08-07] MEDS ORDERED: INFLUENZA VIRUS VACCINE 0.5 ML SYRINGE IM ONE (07:23)
[2020-08-07 07:28] LABS: Basophils % 0.1 % (0.0-0.8); Eosinophils % 0.3 % (0.00-10.9); Hematocrit 24.4 VOL% (35.7-47.0); Hemoglobin 7.9 GM/DL (12.0-16.0); Immature Granulocytes % 0.5 %; Immature Granulocytes Absolute 0.04 #; Lymphocytes # 0.3 10*3/uL (1.4-4.0); Mean Corpuscular HGB Conc 32.4 GM/DL (32-36); Mean Corpuscular Volume 84.4 FL (87-102); Mean Platelet Volume 10.7 FL (9.6-12.0); Monocytes % 1.3 % (1.7-12.7); Neutrophils % 93.8 % (38.7-73.9); Platelet Count 265 T/CUMM (130-400); Red Blood Count 2.89 MC/CUMM (3.8-5.5); Red Cell Distribution Width 15.9 % (9.3-17.3); White Blood Count 7.7 T/CUMM (4-12)
[2020-08-07 07:49] LABS: Albumin 3.3 G/DL (3.4-5.0); Bilirubin,Total 0.5 MG/DL (0.2-1.0); Calcium 9.8 MG/DL (8.5-10.1); Osmolality,Calculated 292.1 MOS/KG (273-304); Potassium 4.2 MMOL/L (3.5-5.1); Total Protein 7.9 G/DL (6.4-8.3)
[2020-08-07 07:50] LABS: Anisocytosis 2+; Band Neutrophils 1 % (0-10); Eosinophils 1 % (0-10); Lymphocytes 3 % (20-55); Platelet Estimate Normal; Segmented Neutrophils 93 % (50-85); Tear Drop Cells Few; Total Cells Counted 100
[2020-08-07 07:51] LABS: Target Cells Few
[2020-08-07] MEDS ORDERED: FUROSEMIDE 40 MG/4 ML VIAL IV ONE (10:32)
[2020-08-07] MEDS ORDERED: ALBUTEROL/IPRATROPIUM 3 ML NEB RESP TX PRN (10:33)
[2020-08-07] MEDS ORDERED: LABETALOL 200 MG TABLET PO SCH (12:30)
[2020-08-07] MEDS: methylPREDNISolone SOD SUC 40 MG/1 ML VIAL IV SCH ×2 (13:01→22:02)
[2020-08-07] MEDS: PANTOPRAZOLE 40 MG TABLET PO SCH (13:01)
[2020-08-07 13:04] LABS: ABG Base Excess -5.2 MMOL/L (-2.5-2.5); ABG HCO3 19.3 MMOL/L (20-26); ABG Oxygen Saturation 90.2 % (95-100); ABG PCO2 33.4 MM HG (35-48); ABG PO2 64.2 MM HG (80-95); ABG TCO2 20.3 MMOL/L (23-27)
[2020-08-07 13:12] LABS: Troponin I 0.067 NG/ML (0.00-0.045)
[2020-08-07] MEDS: PIPERACILLIN/TAZOBACTAM 2,250 MG in SODIUM CHLORIDE 0.9% 100 ML IV SCH ×2 (13:48→22:06)
[2020-08-07] MEDS ORDERED: cloNIDine 0.3 MG/24 HR PATCH TRANSDERM SCH (18:30)
[2020-08-07] MEDS ORDERED: cloNIDine 0.1 MG TABLET PO SCH (21:00)
[2020-08-08] MEDS: hydrALAZINE 20 MG/1 ML VIAL IV PRN (00:13)
[2020-08-08] MEDS: NITROGLYCERIN 2% OINT 1 INCH/GM PACK TOP SCH ×4 (03:48→21:41)
[2020-08-08] MEDS: methylPREDNISolone SOD SUC 40 MG/1 ML VIAL IV SCH ×3 (05:13→21:34)
[2020-08-08] MEDS: PIPERACILLIN/TAZOBACTAM 2,250 MG in SODIUM CHLORIDE 0.9% 100 ML IV SCH (05:14)
[2020-08-08 05:53] LABS: Hemoglobin 6.8 GM/DL (12.0-16.0); Immature Granulocytes Absolute 0.06 #; Lymphocytes # 0.4 10*3/uL (1.4-4.0); Lymphocytes % 5.9 % (21.3-54.2); Mean Corpuscular HGB Conc 32.4 GM/DL (32-36); Mean Corpuscular Volume 83.3 FL (87-102); Mean Platelet Volume 10.8 FL (9.6-12.0); Monocytes % 4.8 % (1.7-12.7); Neutrophils % 88.3 % (38.7-73.9); Platelet Count 221 T/CUMM (130-400); Red Blood Count 2.52 MC/CUMM (3.8-5.5); Red Cell Distribution Width 15.5 % (9.3-17.3); White Blood Count 6.3 T/CUMM (4-12)
[2020-08-08 06:37] LABS: Bilirubin,Total 0.5 MG/DL (0.2-1.0); Calcium 9.8 MG/DL (8.5-10.1); Ferritin 693.2 ng/ml (8-252); Osmolality,Calculated 283.2 MOS/KG (273-304); Potassium 3.9 MMOL/L (3.5-5.1); Total Protein 7.2 G/DL (6.4-8.3)
[2020-08-08 06:49] LABS: Troponin I 0.061 NG/ML (0.00-0.045)
[2020-08-08] MEDS: SEVELAMER CARBONATE 800 MG TABLET PO SCH ×3 (10:44→18:07)
[2020-08-08] MEDS: METOPROLOL SUCCINATE XL 100 MG TABLET PO SCH (10:44)
[2020-08-08] MEDS: PANTOPRAZOLE 40 MG TABLET PO SCH (10:45)
[2020-08-08] MEDS ORDERED: SODIUM CHLORIDE 0.9% 1,000 ML IV PRN (12:30)
[2020-08-08] MEDS ORDERED: amLODIPine 10 MG TABLET PO SCH (12:30)
[2020-08-08 13:51] LABS: % Iron Saturation 48.9 % (18-50)
[2020-08-08] MEDS: ACETAMINOPHEN 325 MG TABLET PO PRN (14:14)
[2020-08-08] MEDS: cloNIDine 0.1 MG TABLET PO SCH ×2 (14:28→21:31)
[2020-08-08] MEDS: MORPHINE 4 MG/1 ML VIAL IV PRN ×2 (16:14→21:35)
[2020-08-08] MEDS: PIPERACILLIN/TAZOBACTAM 3,375 MG in SODIUM CHLORIDE 0.9% 100 ML IV SCH (18:07)
[2020-08-08] MEDS: FERROUS SULFATE 325 MG TABLET PO SCH (18:07)
[2020-08-09] MEDS: NITROGLYCERIN 2% OINT 1 INCH/GM PACK TOP SCH ×4 (03:18→20:22)
[2020-08-09 06:09] LABS: Hematocrit 21.7 VOL% (35.7-47.0); Hemoglobin 6.8 GM/DL (12.0-16.0); Immature Granulocytes % 0.6 %; Immature Granulocytes Absolute 0.05 #; Lymphocytes # 0.5 10*3/uL (1.4-4.0); Lymphocytes % 6.7 % (21.3-54.2); Mean Corpuscular HGB Conc 31.3 GM/DL (32-36); Mean Corpuscular Volume 85.4 FL (87-102); Monocytes % 6.5 % (1.7-12.7); Neutrophils % 86.2 % (38.7-73.9); Platelet Count 240 T/CUMM (130-400); Red Blood Count 2.54 MC/CUMM (3.8-5.5); Red Cell Distribution Width 15.5 % (9.3-17.3); White Blood Count 7.8 T/CUMM (4-12)
[2020-08-09] MEDS: methylPREDNISolone SOD SUC 40 MG/1 ML VIAL IV SCH ×3 (06:16→20:22)
[2020-08-09] MEDS: PIPERACILLIN/TAZOBACTAM 3,375 MG in SODIUM CHLORIDE 0.9% 100 ML IV SCH ×2 (06:17→17:09)
[2020-08-09 06:28] LABS: Albumin 3.1 G/DL (3.4-5.0); Bilirubin,Total 0.7 MG/DL (0.2-1.0); Calcium 10.1 MG/DL (8.5-10.1); Osmolality,Calculated 281.2 MOS/KG (273-304); Potassium 4.4 MMOL/L (3.5-5.1); Total Protein 7.1 G/DL (6.4-8.3)
[2020-08-09] MEDS: METOPROLOL SUCCINATE XL 100 MG TABLET PO SCH (09:16)
[2020-08-09] MEDS: FERROUS SULFATE 325 MG TABLET PO SCH ×2 (09:16→17:08)
[2020-08-09] MEDS: PANTOPRAZOLE 40 MG TABLET PO SCH (09:16)
[2020-08-09] MEDS: SEVELAMER CARBONATE 800 MG TABLET PO SCH ×3 (09:17→17:08)
[2020-08-09] MEDS: cloNIDine 0.1 MG TABLET PO SCH ×2 (09:17→20:22)
[2020-08-09] MEDS: hydrALAZINE 20 MG/1 ML VIAL IV PRN (11:44)
[2020-08-09] MEDS ORDERED: EPOETIN ALFA-EPBX 2,000 UNIT/ML VIAL SUBCUT SCH (15:30)
[2020-08-09] MEDS: MORPHINE 4 MG/1 ML VIAL IV PRN ×2 (17:09→23:22)
[2020-08-09 19:37] LABS: Hematocrit 28.1 VOL% (35.7-47.0)
[2020-08-10] MEDS: NITROGLYCERIN 2% OINT 1 INCH/GM PACK TOP SCH ×3 (03:12→15:16)
[2020-08-10] MEDS: hydrALAZINE 20 MG/1 ML VIAL IV PRN ×2 (03:20→12:41)
[2020-08-10] MEDS: methylPREDNISolone SOD SUC 40 MG/1 ML VIAL IV SCH ×2 (05:09→12:42)
[2020-08-10] MEDS: PIPERACILLIN/TAZOBACTAM 3,375 MG in SODIUM CHLORIDE 0.9% 100 ML IV SCH (05:09)
[2020-08-10 06:23] LABS: Basophils % 0.1 % (0.0-0.8); Eosinophils % 0.1 % (0.00-10.9); Hematocrit 27.1 VOL% (35.7-47.0); Hemoglobin 8.9 GM/DL (12.0-16.0); Immature Granulocytes % 0.8 %; Immature Granulocytes Absolute 0.08 #; Lymphocytes # 0.9 10*3/uL (1.4-4.0); Lymphocytes % 9.3 % (21.3-54.2); Mean Corpuscular HGB Conc 32.8 GM/DL (32-36); Mean Corpuscular Volume 83.9 FL (87-102); Mean Platelet Volume 10.5 FL (9.6-12.0); Monocytes % 10.6 % (1.7-12.7); Neutrophils % 79.1 % (38.7-73.9); Platelet Count 231 T/CUMM (130-400); Red Blood Count 3.23 MC/CUMM (3.8-5.5); Red Cell Distribution Width 14.8 % (9.3-17.3); White Blood Count 9.9 T/CUMM (4-12)
[2020-08-10 06:40] LABS: Calcium 9.8 MG/DL (8.5-10.1); Osmolality,Calculated 282.8 MOS/KG (273-304); Potassium 4.1 MMOL/L (3.5-5.1)
[2020-08-10] MEDS: PANTOPRAZOLE 40 MG TABLET PO SCH (08:13)
[2020-08-10] MEDS: SEVELAMER CARBONATE 800 MG TABLET PO SCH ×2 (08:13→12:42)
[2020-08-10] MEDS: FERROUS SULFATE 325 MG TABLET PO SCH (08:13)
[2020-08-10] MEDS: METOPROLOL SUCCINATE XL 100 MG TABLET PO SCH (08:13)
[2020-08-10] MEDS: cloNIDine 0.1 MG TABLET PO SCH (08:13)
[2020-08-10] MEDS: MORPHINE 4 MG/1 ML VIAL IV PRN (12:42)
[2020-08-10] MEDS ORDERED: LEVOFLOXACIN 750 MG TABLET PO SCH (13:00)
[2020-08-10 13:27] VITALS: BP 199/100
== END 2020-08-10 15:30 | disposition home health service (06) | DRG 291 ==
LOC: N.EDINP 22:45 → N.ED 22:45 → N.3E 08-07 03:45
PROVIDERS: ADMIT Internal Medicine; ATTEND Internal Medicine

== ENCOUNTER 2020-08-12 12:22 | Inpatient (IN) ==
[2020-08-12] MEDS ORDERED: ONDANSETRON 4 MG/2 ML VIAL IV STA ×2 (12:44→16:47)
[2020-08-12] MEDS ORDERED: hydrALAZINE 20 MG/1 ML VIAL IV STA ×2 (12:45→13:59)
[2020-08-12] MEDS ORDERED: FUROSEMIDE 40 MG/4 ML VIAL IV STA (12:45)
[2020-08-12 12:58] LABS: Basophils % 0.1 % (0.0-0.8); Eosinophils # 0.1 10*3/uL (0.0-0.87); Eosinophils % 0.9 % (0.00-10.9); Hematocrit 29.8 VOL% (35.7-47.0); Hemoglobin 9.6 GM/DL (12.0-16.0); Immature Granulocytes % 0.7 %; Lymphocytes # 1.1 10*3/uL (1.4-4.0); Lymphocytes % 7.1 % (21.3-54.2); Mean Corpuscular HGB Conc 32.2 GM/DL (32-36); Mean Corpuscular Volume 85.1 FL (87-102); Mean Platelet Volume 10.3 FL (9.6-12.0); Monocytes % 9.4 % (1.7-12.7); Neutrophils % 81.8 % (38.7-73.9); Platelet Count 274 T/CUMM (130-400); Red Cell Distribution Width 14.6 % (9.3-17.3); White Blood Count 15.3 T/CUMM (4-12)
[2020-08-12 13:16] LABS: Albumin 3.2 G/DL (3.4-5.0); Bilirubin,Total 0.5 MG/DL (0.2-1.0); Calcium 10.2 MG/DL (8.5-10.1); Potassium 3.8 MMOL/L (3.5-5.1); Total Protein 7.3 G/DL (6.4-8.3)
[2020-08-12] MEDS ORDERED: niCARdipine 25 MG/10 ML VIAL IV ONE ×3 (14:08→20:32)
[2020-08-12] MEDS: niCARdipine INJ 25 MG in SODIUM CHLORIDE 0.9% 240 ML IV PRN ×3 (14:18→20:38)
[2020-08-12] MEDS ORDERED: DEXTROSE 50% 25 GM/50 ML VIAL IV PRN (15:30)
[2020-08-12] MEDS ORDERED: ENOXAPARIN 30 MG/0.3 ML SYRINGE SUBCUT SCH (15:30)
[2020-08-12] MEDS ORDERED: GLUCAGON 1 MG VIAL IM PRN (15:30)
[2020-08-12] MEDS: METOPROLOL SUCCINATE XL 100 MG TABLET PO SCH (21:24)
[2020-08-13] MEDS ORDERED: niCARdipine 25 MG/10 ML VIAL IV ONE (02:42)
[2020-08-13] MEDS: niCARdipine INJ 25 MG in SODIUM CHLORIDE 0.9% 240 ML IV PRN ×2 (02:51→08:01)
[2020-08-13 05:46] LABS: Basophils % 0.1 % (0.0-0.8); Eosinophils # 0.3 10*3/uL (0.0-0.87); Eosinophils % 2.3 % (0.00-10.9); Hematocrit 29.7 VOL% (35.7-47.0); Hemoglobin 9.6 GM/DL (12.0-16.0); Immature Granulocytes % 0.5 %; Immature Granulocytes Absolute 0.08 #; Lymphocytes # 1.3 10*3/uL (1.4-4.0); Lymphocytes % 8.8 % (21.3-54.2); Mean Corpuscular HGB Conc 32.3 GM/DL (32-36); Mean Corpuscular Volume 84.4 FL (87-102); Mean Platelet Volume 11.3 FL (9.6-12.0); Monocytes % 8.9 % (1.7-12.7); Neutrophils % 79.4 % (38.7-73.9); Platelet Count 255 T/CUMM (130-400); Red Blood Count 3.52 MC/CUMM (3.8-5.5); Red Cell Distribution Width 15.1 % (9.3-17.3); White Blood Count 14.8 T/CUMM (4-12)
[2020-08-13 07:28] LABS: Calcium 8.4 MG/DL (8.5-10.1); Osmolality,Calculated 300.4 MOS/KG (273-304); Potassium 3.3 MMOL/L (3.5-5.1)
[2020-08-13] MEDS: ONDANSETRON 4 MG/2 ML VIAL IV PRN ×3 (07:44→17:59)
[2020-08-13] MEDS ORDERED: ACETAMINOPHEN 325 MG TABLET PO PRN (09:57)
[2020-08-13] MEDS ORDERED: cloNIDine 0.3 MG/24 HR PATCH TRANSDERM SCH (10:00)
[2020-08-13] MEDS: cloNIDine 0.1 MG TABLET PO SCH ×2 (10:22→21:34)
[2020-08-13] MEDS: METOPROLOL SUCCINATE XL 100 MG TABLET PO SCH (10:22)
[2020-08-13] MEDS: PANTOPRAZOLE 40 MG TABLET PO SCH (10:22)
[2020-08-13] MEDS: HEPARIN 5,000 UNIT/1 ML VIAL SUBCUT SCH ×2 (11:07→18:03)
[2020-08-13] MEDS ORDERED: POLYETHYLENE GLYCOL POWDER 17 GM PACK PO PRN (12:05)
[2020-08-13] MEDS: niCARdipine INJ 50 MG in SODIUM CHLORIDE 0.9% 230 ML IV PRN ×2 (12:35→19:13)
[2020-08-13] MEDS: SEVELAMER CARBONATE 800 MG TABLET PO SCH ×2 (13:05→18:03)
[2020-08-13 14:47] LABS: Potassium 3.6 MMOL/L (3.5-5.1)
[2020-08-13] MEDS ORDERED: POTASSIUM CHLORIDE 10 MEQ TABLET PO ONE (14:51)
[2020-08-13] MEDS: PROMETHAZINE 25 MG/1 ML VIAL IM PRN ×2 (15:37→20:07)
[2020-08-13] MEDS ORDERED: PROCHLORPERAZINE 25 MG SUPP RECTAL ONE (17:59)
[2020-08-13] MEDS: FERROUS SULFATE 325 MG TABLET PO SCH (18:03)
[2020-08-13] MEDS ORDERED: POLYETHYLENE GLYCOL 3350/ELECTROLYTES 4,000 ML BOTTLE PO ONE (19:54)
[2020-08-13] MEDS ORDERED: BISACODYL 10 MG SUPP RECTAL ONE (20:00)
[2020-08-14] MEDS: niCARdipine INJ 50 MG in SODIUM CHLORIDE 0.9% 230 ML IV PRN ×2 (01:36→08:40)
[2020-08-14] MEDS: HEPARIN 5,000 UNIT/1 ML VIAL SUBCUT SCH ×3 (03:36→18:16)
[2020-08-14 04:23] LABS: Basophils % 0.2 % (0.0-0.8); Eosinophils # 0.2 10*3/uL (0.0-0.87); Eosinophils % 1.8 % (0.00-10.9); Hematocrit 29.6 VOL% (35.7-47.0); Hemoglobin 9.3 GM/DL (12.0-16.0); Immature Granulocytes % 0.5 %; Immature Granulocytes Absolute 0.05 #; Lymphocytes # 1.2 10*3/uL (1.4-4.0); Lymphocytes % 11.2 % (21.3-54.2); Mean Corpuscular HGB Conc 31.4 GM/DL (32-36); Mean Corpuscular Volume 85.5 FL (87-102); Mean Platelet Volume 10.1 FL (9.6-12.0); Monocytes % 9.4 % (1.7-12.7); Neutrophils % 76.9 % (38.7-73.9); Platelet Count 311 T/CUMM (130-400); Red Blood Count 3.46 MC/CUMM (3.8-5.5); Red Cell Distribution Width 14.9 % (9.3-17.3); White Blood Count 10.5 T/CUMM (4-12)
[2020-08-14 04:48] LABS: Bilirubin,Total 0.4 MG/DL (0.2-1.0); Calcium 10.1 MG/DL (8.5-10.1); Osmolality,Calculated 285.8 MOS/KG (273-304); Total Protein 6.9 G/DL (6.4-8.3)
[2020-08-14] MEDS: SEVELAMER CARBONATE 800 MG TABLET PO SCH ×3 (08:23→17:06)
[2020-08-14] MEDS: FERROUS SULFATE 325 MG TABLET PO SCH ×2 (08:24→17:06)
[2020-08-14] MEDS: METOPROLOL SUCCINATE XL 100 MG TABLET PO SCH (08:24)
[2020-08-14] MEDS: cloNIDine 0.1 MG TABLET PO SCH ×2 (08:24→21:15)
[2020-08-14] MEDS: PANTOPRAZOLE 40 MG TABLET PO SCH (08:24)
[2020-08-14] MEDS ORDERED: METOPROLOL SUCCINATE XL 100 MG TABLET PO SCH (09:00)
[2020-08-15] MEDS: HEPARIN 5,000 UNIT/1 ML VIAL SUBCUT SCH ×3 (02:33→17:44)
[2020-08-15 08:09] LABS: Basophils % 0.3 % (0.0-0.8); Eosinophils # 0.3 10*3/uL (0.0-0.87); Eosinophils % 3.1 % (0.00-10.9); Hematocrit 26.8 VOL% (35.7-47.0); Hemoglobin 8.5 GM/DL (12.0-16.0); Immature Granulocytes % 0.3 %; Immature Granulocytes Absolute 0.03 #; Lymphocytes # 1.9 10*3/uL (1.4-4.0); Lymphocytes % 18.2 % (21.3-54.2); Mean Corpuscular HGB Conc 31.7 GM/DL (32-36); Mean Corpuscular Volume 86.7 FL (87-102); Mean Platelet Volume 9.6 FL (9.6-12.0); Monocytes % 9.9 % (1.7-12.7); Neutrophils % 68.2 % (38.7-73.9); Platelet Count 287 T/CUMM (130-400); Red Blood Count 3.09 MC/CUMM (3.8-5.5); Red Cell Distribution Width 15.2 % (9.3-17.3); White Blood Count 10.5 T/CUMM (4-12)
[2020-08-15 08:31] LABS: Alanine Aminotransferase 11 U/L (13-56); Albumin 2.7 G/DL (3.4-5.0); Alkaline Phosphatase 78 U/L (45-117); Aspartate Amino Transferase 11 U/L (0-37); Bilirubin,Total < 0.39 MG/DL (0.2-1.0); Blood Urea Nitrogen 66 MG/DL (7-18); Calcium 9.4 MG/DL (8.5-10.1); Carbon Dioxide 25 MMOL/L (21-32); Estimated Glom Filtration Rate 5 ML/MIN; Glucose 131 MG/DL (74-106); Osmolality,Calculated 297.5 MOS/KG (273-304); Potassium 4.3 MMOL/L (3.5-5.1); Sodium 139 MMOL/L (136-145); Total Protein 6.5 G/DL (6.4-8.3)
[2020-08-15] MEDS: cloNIDine 0.1 MG TABLET PO SCH ×3 (08:43→21:15)
[2020-08-15] MEDS: SEVELAMER CARBONATE 800 MG TABLET PO SCH ×3 (08:43→17:53)
[2020-08-15] MEDS: FERROUS SULFATE 325 MG TABLET PO SCH ×2 (08:44→17:53)
[2020-08-15] MEDS: METOPROLOL SUCCINATE XL 100 MG TABLET PO SCH (08:44)
[2020-08-15] MEDS: PANTOPRAZOLE 40 MG TABLET PO SCH (08:44)
[2020-08-15] MEDS ORDERED: hydrALAZINE 20 MG/1 ML VIAL IV PRN (11:08)
[2020-08-16] MEDS: HEPARIN 5,000 UNIT/1 ML VIAL SUBCUT SCH ×2 (04:50→10:23)
[2020-08-16 05:53] LABS: Basophils % 0.3 % (0.0-0.8); Eosinophils # 0.3 10*3/uL (0.0-0.87); Eosinophils % 3.6 % (0.00-10.9); Hemoglobin 8.4 GM/DL (12.0-16.0); Immature Granulocytes % 0.3 %; Immature Granulocytes Absolute 0.03 #; Lymphocytes # 1.6 10*3/uL (1.4-4.0); Lymphocytes % 18.1 % (21.3-54.2); Mean Corpuscular HGB Conc 31.1 GM/DL (32-36); Mean Corpuscular Volume 86.3 FL (87-102); Mean Platelet Volume 10.5 FL (9.6-12.0); Neutrophils % 65.7 % (38.7-73.9); Platelet Count 255 T/CUMM (130-400); Red Blood Count 3.13 MC/CUMM (3.8-5.5); Red Cell Distribution Width 15.1 % (9.3-17.3); White Blood Count 8.9 T/CUMM (4-12)
[2020-08-16 06:12] LABS: Calcium 9.2 MG/DL (8.5-10.1); Osmolality,Calculated 281.8 MOS/KG (273-304)
[2020-08-16] MEDS: FERROUS SULFATE 325 MG TABLET PO SCH (09:05)
[2020-08-16] MEDS: PANTOPRAZOLE 40 MG TABLET PO SCH (09:05)
[2020-08-16] MEDS: cloNIDine 0.1 MG TABLET PO SCH ×2 (09:05→14:01)
[2020-08-16] MEDS: METOPROLOL SUCCINATE XL 100 MG TABLET PO SCH (09:05)
[2020-08-16] MEDS: SEVELAMER CARBONATE 800 MG TABLET PO SCH ×2 (09:05→11:49)
[2020-08-16 11:42] VITALS: BP 167/98
== END 2020-08-16 14:20 | disposition home health service (06) | DRG 304 ==
LOC: EDBD → EDUNIT# → N.ED 12:22 → N.EDINP 16:55 → N.CC 08-13 06:27 → N.TELEN 08-15 10:52
PROVIDERS: ADMIT Internal Medicine; ATTEND Internal Medicine

== ENCOUNTER 2020-09-07 06:43 | Inpatient (IN) ==
[2020-09-07] MEDS ORDERED: MORPHINE 4 MG/1 ML VIAL IV STA ×2 (07:07→09:23)
[2020-09-07] MEDS ORDERED: hydrALAZINE 20 MG/1 ML VIAL IV STA ×3 (07:09→09:28)
[2020-09-07 07:22] LABS: Basophils % 0.3 % (0.0-0.8); Eosinophils # 0.2 10*3/uL (0.0-0.87); Eosinophils % 1.9 % (0.00-10.9); Hematocrit 23.4 VOL% (35.7-47.0); Hemoglobin 7.3 GM/DL (12.0-16.0); Immature Granulocytes % 0.5 %; Immature Granulocytes Absolute 0.05 #; Lymphocytes % 10.3 % (21.3-54.2); Mean Corpuscular HGB Conc 31.2 GM/DL (32-36); Mean Corpuscular Volume 90.3 FL (87-102); Mean Platelet Volume 11.4 FL (9.6-12.0); Monocytes % 5.8 % (1.7-12.7); Neutrophils % 81.2 % (38.7-73.9); Platelet Count 213 T/CUMM (130-400); Red Blood Count 2.59 MC/CUMM (3.8-5.5); Red Cell Distribution Width 18.6 % (9.3-17.3)
[2020-09-07 07:45] LABS: PT Patient Result 10.5 SECS (9.8-11.9); Partial Thromboplastin Time 27.7 SECS (23.9-33.8)
[2020-09-07 08:05] LABS: Calcium 9.8 MG/DL (8.5-10.1); Potassium 4.4 MMOL/L (3.5-5.1)
[2020-09-07 09:21] LABS: Barbiturates Screen,Urine Negative (Negative); Benzodiazepines Screen,Urine Negative (Negative); Cannabinoid Screen,Urine Negative (Negative); Opiate Screen,Urine Negative (Negative); Phencyclidine Screen,Urine Negative (Negative)
[2020-09-07] MEDS ORDERED: niCARdipine INJ 25 MG in SODIUM CHLORIDE 0.9% 240 ML IV PRN (09:43)
[2020-09-07] MEDS ORDERED: niCARdipine 25 MG/10 ML VIAL IV ONE (09:44)
[2020-09-07] MEDS ORDERED: ACETAMINOPHEN 325 MG TABLET PO PRN (10:17)
[2020-09-07] MEDS ORDERED: POLYETHYLENE GLYCOL POWDER 17 GM PACK PO PRN (11:43)
[2020-09-07] MEDS: ONDANSETRON 4 MG/2 ML VIAL IV PRN (12:14)
[2020-09-07] MEDS ORDERED: HEPARIN 5,000 UNIT/1 ML VIAL SUBCUT SCH (13:30)
[2020-09-07] MEDS ORDERED: FUROSEMIDE 100 MG/10 ML VIAL IV ONE (13:39)
[2020-09-07] MEDS ORDERED: EPOETIN ALFA-EPBX 10,000 UNIT/ML VIAL IV PRN (14:11)
[2020-09-07] MEDS: SEVELAMER CARBONATE 800 MG TABLET PO SCH ×2 (14:18→18:13)
[2020-09-08 06:17] LABS: Basophils % 0.3 % (0.0-0.8); Eosinophils # 0.3 10*3/uL (0.0-0.87); Eosinophils % 3.7 % (0.00-10.9); Hematocrit 18.9 VOL% (35.7-47.0); Immature Granulocytes % 0.4 %; Immature Granulocytes Absolute 0.03 #; Lymphocytes % 14.3 % (21.3-54.2); Mean Corpuscular HGB Conc 31.7 GM/DL (32-36); Mean Corpuscular Volume 89.2 FL (87-102); Monocytes % 8.6 % (1.7-12.7); Neutrophils % 72.7 % (38.7-73.9); Platelet Count 174 T/CUMM (130-400); Red Blood Count 2.12 MC/CUMM (3.8-5.5); Red Cell Distribution Width 18.2 % (9.3-17.3)
[2020-09-08 06:38] LABS: % Iron Saturation 19.3 % (18-50); Ferritin 656.8 ng/ml (8-252)
[2020-09-08 06:39] LABS: Albumin 2.8 G/DL (3.4-5.0); Bilirubin,Total 1.3 MG/DL (0.2-1.0); Calcium 9.4 MG/DL (8.5-10.1); Osmolality,Calculated 288.8 MOS/KG (273-304); Potassium 4.6 MMOL/L (3.5-5.1); Total Protein 6.3 G/DL (5.0-7.5)
[2020-09-08] MEDS ORDERED: SODIUM CHLORIDE 0.9% 1,000 ML IV PRN (07:05)
[2020-09-08] MEDS: SEVELAMER CARBONATE 800 MG TABLET PO SCH ×3 (08:08→17:49)
[2020-09-08] MEDS: METOPROLOL SUCCINATE XL 100 MG TABLET PO SCH (08:08)
[2020-09-08] MEDS ORDERED: HEPARIN 5,000 UNIT/1 ML VIAL SUBCUT SCH (09:00)
[2020-09-08] MEDS: ONDANSETRON 4 MG/2 ML VIAL IV PRN (21:36)
[2020-09-09 05:37] LABS: Basophils % 0.4 % (0.0-0.8); Eosinophils # 0.4 10*3/uL (0.0-0.87); Eosinophils % 4.6 % (0.00-10.9); Hematocrit 21.1 VOL% (35.7-47.0); Hemoglobin 6.6 GM/DL (12.0-16.0); Immature Granulocytes % 0.3 %; Immature Granulocytes Absolute 0.02 #; Lymphocytes # 1.3 10*3/uL (1.4-4.0); Lymphocytes % 17.6 % (21.3-54.2); Mean Corpuscular HGB Conc 31.3 GM/DL (32-36); Mean Corpuscular Volume 87.9 FL (87-102); Mean Platelet Volume 11.3 FL (9.6-12.0); Neutrophils % 69.1 % (38.7-73.9); Platelet Count 214 T/CUMM (130-400); Red Cell Distribution Width 17.3 % (9.3-17.3); White Blood Count 7.6 T/CUMM (4-12)
[2020-09-09 05:57] LABS: Calcium 9.6 MG/DL (8.5-10.1); Potassium 4.5 MMOL/L (3.5-5.1)
[2020-09-09] MEDS: SEVELAMER CARBONATE 800 MG TABLET PO SCH ×3 (09:47→18:49)
[2020-09-09] MEDS: METOPROLOL SUCCINATE XL 100 MG TABLET PO SCH (09:47)
[2020-09-10 05:47] LABS: Basophils % 0.3 % (0.0-0.8); Eosinophils # 0.2 10*3/uL (0.0-0.87); Eosinophils % 3.9 % (0.00-10.9); Hematocrit 22.7 VOL% (35.7-47.0); Immature Granulocytes % 0.3 %; Immature Granulocytes Absolute 0.02 #; Lymphocytes % 17.4 % (21.3-54.2); Mean Corpuscular HGB Conc 30.8 GM/DL (32-36); Mean Corpuscular Volume 90.8 FL (87-102); Mean Platelet Volume 10.6 FL (9.6-12.0); Monocytes % 8.8 % (1.7-12.7); Neutrophils % 69.3 % (38.7-73.9); Platelet Count 185 T/CUMM (130-400); Red Cell Distribution Width 16.4 % (9.3-17.3); White Blood Count 5.9 T/CUMM (4-12)
[2020-09-10 06:05] LABS: Calcium 9.6 MG/DL (8.5-10.1); Potassium 4.3 MMOL/L (3.5-5.1)
[2020-09-10] MEDS: SEVELAMER CARBONATE 800 MG TABLET PO SCH ×2 (08:48→13:11)
[2020-09-10] MEDS: METOPROLOL SUCCINATE XL 100 MG TABLET PO SCH (08:49)
[2020-09-10 16:19] VITALS: BP 158/83
== END 2020-09-10 17:35 | disposition home or self-care (01) | DRG 640 ==
LOC: N.ED 06:43 → SUATTDRO 10:17 → N.EDINP 10:17 → N.ICU 11:25 → N.TELEN 18:47
PROVIDERS: ADMIT Internal Medicine; ATTEND Internal Medicine

== ENCOUNTER 2020-09-20 06:21 | Inpatient (IN) ==
[2020-09-20] MEDS: NITROGLYCERIN DRIP 50 MG/250 ML BOTTLE IV SCH ×3 (07:05→21:35)
[2020-09-20 07:06] LABS: Basophils % 0.5 % (0.0-0.8); Eosinophils # 0.2 10*3/uL (0.0-0.87); Eosinophils % 2.7 % (0.00-10.9); Hematocrit 22.7 VOL% (35.7-47.0); Hemoglobin 7.2 GM/DL (12.0-16.0); Immature Granulocytes % 0.5 %; Immature Granulocytes Absolute 0.04 #; Lymphocytes # 1.6 10*3/uL (1.4-4.0); Lymphocytes % 19.5 % (21.3-54.2); Mean Corpuscular HGB Conc 31.7 GM/DL (32-36); Mean Corpuscular Volume 87.6 FL (87-102); Mean Platelet Volume 11.3 FL (9.6-12.0); Monocytes % 6.4 % (1.7-12.7); Neutrophils % 70.4 % (38.7-73.9); Platelet Count 246 T/CUMM (130-400); Red Blood Count 2.59 MC/CUMM (3.8-5.5); Red Cell Distribution Width 15.9 % (9.3-17.3); White Blood Count 8.2 T/CUMM (4-12)
[2020-09-20 07:29] LABS: Albumin 3.3 G/DL (3.4-5.0); Bilirubin,Total 0.5 MG/DL (0.2-1.0); Calcium 10.2 MG/DL (8.5-10.1); Osmolality,Calculated 288.2 MOS/KG (273-304); Potassium 3.8 MMOL/L (3.5-5.1); Total Protein 7.2 G/DL (6.4-8.2)
[2020-09-20] MEDS ORDERED: POLYETHYLENE GLYCOL POWDER 17 GM PACK PO PRN (08:45)
[2020-09-20] MEDS ORDERED: GLUCAGON 1 MG VIAL IM PRN (08:47)
[2020-09-20] MEDS ORDERED: DEXTROSE 50% 25 GM/50 ML VIAL IV PRN (08:47)
[2020-09-20] MEDS: PANTOPRAZOLE 40 MG TABLET PO SCH (15:36)
[2020-09-20] MEDS: METOPROLOL SUCCINATE XL 100 MG TABLET PO SCH (15:36)
[2020-09-20] MEDS: cloNIDine 0.1 MG TABLET PO SCH ×3 (15:36→20:07)
[2020-09-20] MEDS: ACETAMINOPHEN 325 MG TABLET PO PRN ×2 (15:37→20:12)
[2020-09-20] MEDS: SEVELAMER CARBONATE 800 MG TABLET PO SCH ×2 (17:54→17:57)
[2020-09-20] MEDS ORDERED: cloNIDine 0.3 MG/24 HR PATCH TRANSDERM SCH (18:00)
[2020-09-21] MEDS: NITROGLYCERIN DRIP 50 MG/250 ML BOTTLE IV SCH ×4 (01:55→11:16)
[2020-09-21 05:56] LABS: Basophils % 0.3 % (0.0-0.8); Eosinophils # 0.2 10*3/uL (0.0-0.87); Eosinophils % 2.6 % (0.00-10.9); Hematocrit 19.3 VOL% (35.7-47.0); Immature Granulocytes % 0.4 %; Immature Granulocytes Absolute 0.04 #; Lymphocytes # 1.3 10*3/uL (1.4-4.0); Lymphocytes % 14.5 % (21.3-54.2); Mean Corpuscular HGB Conc 31.6 GM/DL (32-36); Mean Corpuscular Volume 87.7 FL (87-102); Mean Platelet Volume 11.4 FL (9.6-12.0); Monocytes % 8.4 % (1.7-12.7); Neutrophils % 73.8 % (38.7-73.9); Platelet Count 208 T/CUMM (130-400); Red Cell Distribution Width 15.7 % (9.3-17.3); White Blood Count 8.9 T/CUMM (4-12)
[2020-09-21 06:02] LABS: Hemoglobin 6.1 GM/DL (12.0-16.0)
[2020-09-21 06:08] LABS: Albumin 2.9 G/DL (3.4-5.0); Calcium 9.7 MG/DL (8.5-10.1); Osmolality,Calculated 277.1 MOS/KG (273-304); Potassium 3.6 MMOL/L (3.5-5.1); Total Protein 5.9 G/DL (6.4-8.2)
[2020-09-21] MEDS ORDERED: SODIUM CHLORIDE 0.9% 1,000 ML IV PRN ×2 (06:14→08:18)
[2020-09-21] MEDS: SEVELAMER CARBONATE 800 MG TABLET PO SCH ×3 (08:10→17:36)
[2020-09-21] MEDS: METOPROLOL SUCCINATE XL 100 MG TABLET PO SCH (08:10)
[2020-09-21] MEDS: PANTOPRAZOLE 40 MG TABLET PO SCH (08:10)
[2020-09-21] MEDS: cloNIDine 0.1 MG TABLET PO SCH ×3 (08:10→20:35)
[2020-09-21 16:07] LABS: Hematocrit 26.9 VOL% (35.7-47.0)
[2020-09-21 16:11] LABS: Hemoglobin 8.8 GM/DL (12.0-16.0)
[2020-09-21 16:11] LABS: Calcium 9.3 MG/DL (8.5-10.1); Osmolality,Calculated 274.8 MOS/KG (273-304); Potassium 3.4 MMOL/L (3.5-5.1)
[2020-09-21] MEDS ORDERED: POTASSIUM CHLORIDE 20 MEQ TABLET PO ONE (16:25)
[2020-09-22 05:41] LABS: Basophils # 0.1 10*3/uL (0.0-0.2); Basophils % 0.7 % (0.0-0.8); Eosinophils # 0.2 10*3/uL (0.0-0.87); Eosinophils % 2.7 % (0.00-10.9); Hematocrit 27.8 VOL% (35.7-47.0); Hemoglobin 9.2 GM/DL (12.0-16.0); Immature Granulocytes % 0.4 %; Immature Granulocytes Absolute 0.03 #; Lymphocytes # 1.6 10*3/uL (1.4-4.0); Lymphocytes % 22.1 % (21.3-54.2); Mean Corpuscular HGB Conc 33.1 GM/DL (32-36); Mean Corpuscular Volume 84.5 FL (87-102); Mean Platelet Volume 11.7 FL (9.6-12.0); Monocytes % 7.8 % (1.7-12.7); Neutrophils % 66.3 % (38.7-73.9); Platelet Count 197 T/CUMM (130-400); Red Blood Count 3.29 MC/CUMM (3.8-5.5); Red Cell Distribution Width 15.2 % (9.3-17.3); White Blood Count 7.1 T/CUMM (4-12)
[2020-09-22 06:15] LABS: Calcium 9.8 MG/DL (8.5-10.1); Osmolality,Calculated 275.8 MOS/KG (273-304)
[2020-09-22 06:18] LABS: Bilirubin,Total 0.6 MG/DL (0.2-1.0); Calcium 9.9 MG/DL (8.5-10.1); Total Protein 6.5 G/DL (6.4-8.2)
[2020-09-22] MEDS: SEVELAMER CARBONATE 800 MG TABLET PO SCH ×3 (09:11→16:42)
[2020-09-22] MEDS: PANTOPRAZOLE 40 MG TABLET PO SCH (09:12)
[2020-09-22] MEDS: cloNIDine 0.1 MG TABLET PO SCH ×2 (09:12→14:35)
[2020-09-22] MEDS: METOPROLOL SUCCINATE XL 100 MG TABLET PO SCH (09:12)
[2020-09-22 16:40] VITALS: BP 165/81
== END 2020-09-22 17:20 | disposition home or self-care (01) | DRG 640 ==
LOC: N.EDINP 06:21 → N.ED 06:21 → OBSVTOIN 08:34 → SUATTDRO 08:34 → N.EDINP 13:36 → N.CC 17:15 → N.TELES 09-21 17:52
PROVIDERS: ADMIT Internal Medicine; ATTEND Internal Medicine

== ENCOUNTER 2020-10-06 14:28 | Inpatient (IN) ==
[2020-10-06] MEDS ORDERED: ONDANSETRON 4 MG/2 ML VIAL IV STA (14:51)
[2020-10-06] MEDS ORDERED: MORPHINE 4 MG/1 ML VIAL IV STA (14:51)
[2020-10-06] MEDS ORDERED: hydrALAZINE 20 MG/1 ML VIAL IV STA ×2 (14:52→16:01)
[2020-10-06 15:00] LABS: Basophils # 0.1 10*3/uL (0.0-0.2); Basophils % 0.5 % (0.0-0.8); Eosinophils # 0.3 10*3/uL (0.0-0.87); Eosinophils % 2.5 % (0.00-10.9); Hematocrit 36.6 VOL% (35.7-47.0); Hemoglobin 11.3 GM/DL (12.0-16.0); Immature Granulocytes % 0.8 %; Immature Granulocytes Absolute 0.11 #; Lymphocytes # 1.6 10*3/uL (1.4-4.0); Lymphocytes % 12.4 % (21.3-54.2); Mean Corpuscular HGB Conc 30.9 GM/DL (32-36); Mean Corpuscular Volume 89.1 FL (87-102); Monocytes % 5.6 % (1.7-12.7); NRBC # 0.02 10*3/uL; Neutrophils % 78.2 % (38.7-73.9); Platelet Count 263 T/CUMM (130-400); Red Blood Count 4.11 MC/CUMM (3.8-5.5); Red Cell Distribution Width 16.7 % (9.3-17.3)
[2020-10-06] MEDS ORDERED: cloNIDine 0.1 MG TABLET PO STA (15:04)
[2020-10-06 15:20] LABS: Albumin 3.9 G/DL (3.4-5.0); Bilirubin,Total 0.6 MG/DL (0.2-1.0); Calcium 10.3 MG/DL (8.5-10.1); Osmolality,Calculated 278.1 MOS/KG (273-304); Potassium 4.3 MMOL/L (3.5-5.1); Total Protein 8.1 G/DL (6.4-8.2)
[2020-10-06] MEDS ORDERED: ACETAMINOPHEN 325 MG TABLET PO PRN (16:23)
[2020-10-06] MEDS ORDERED: ONDANSETRON 4 MG/2 ML VIAL IV PRN (16:23)
[2020-10-06] MEDS ORDERED: ALBUTEROL 2.5 MG/3 ML NEB RESP TX PRN (16:23)
[2020-10-06] MEDS ORDERED: POLYETHYLENE GLYCOL POWDER 17 GM PACK PO PRN (16:26)
[2020-10-06] MEDS ORDERED: niCARdipine 25 MG/10 ML VIAL IV ONE (16:28)
[2020-10-06] MEDS: niCARdipine INJ 25 MG in SODIUM CHLORIDE 0.9% 240 ML IV PRN ×2 (16:35→18:44)
[2020-10-06] MEDS: HEPARIN 5,000 UNIT/1 ML VIAL SUBCUT SCH (17:18)
[2020-10-06] MEDS: SEVELAMER CARBONATE 800 MG TABLET PO SCH (17:18)
[2020-10-06] MEDS ORDERED: hydrALAZINE 20 MG/1 ML VIAL IV ONE (18:00)
[2020-10-06] MEDS: cloNIDine 0.1 MG TABLET PO SCH (20:17)
[2020-10-07] MEDS ORDERED: cloNIDine 0.1 MG TABLET PO ONE (03:02)
[2020-10-07 04:08] LABS: Basophils # 0.1 10*3/uL (0.0-0.2); Basophils % 0.6 % (0.0-0.8); Eosinophils # 0.5 10*3/uL (0.0-0.87); Eosinophils % 6.8 % (0.00-10.9); Hematocrit 28.4 VOL% (35.7-47.0); Hemoglobin 8.8 GM/DL (12.0-16.0); Immature Granulocytes % 0.5 %; Immature Granulocytes Absolute 0.04 #; Lymphocytes # 1.7 10*3/uL (1.4-4.0); Mean Corpuscular Volume 90.2 FL (87-102); Mean Platelet Volume 9.8 FL (9.6-12.0); Monocytes % 7.9 % (1.7-12.7); NRBC # 0.02 10*3/uL; Neutrophils % 62.2 % (38.7-73.9); Platelet Count 210 T/CUMM (130-400); Red Blood Count 3.15 MC/CUMM (3.8-5.5); Red Cell Distribution Width 16.6 % (9.3-17.3); White Blood Count 7.8 T/CUMM (4-12)
[2020-10-07 04:40] LABS: Calcium 9.6 MG/DL (8.5-10.1); Osmolality,Calculated 284.8 MOS/KG (273-304); Potassium 3.9 MMOL/L (3.5-5.1)
[2020-10-07] MEDS ORDERED: hydrALAZINE 20 MG/1 ML VIAL IV ONE (04:55)
[2020-10-07] MEDS: HEPARIN 5,000 UNIT/1 ML VIAL SUBCUT SCH ×2 (05:06→16:00)
[2020-10-07] MEDS: cloNIDine 0.1 MG TABLET PO SCH ×3 (09:00→21:10)
[2020-10-07] MEDS: SEVELAMER CARBONATE 800 MG TABLET PO SCH ×3 (09:00→17:29)
[2020-10-07] MEDS: METOPROLOL SUCCINATE XL 100 MG TABLET PO SCH (09:01)
[2020-10-07] MEDS: PANTOPRAZOLE 40 MG TABLET PO SCH (09:01)
[2020-10-07] MEDS: lisinopriL 5 MG TABLET PO SCH (09:01)
[2020-10-07] MEDS ORDERED: NITROGLYCERIN SL 0.4 MG TABLET SL ONE (17:07)
[2020-10-07] MEDS ORDERED: NITROGLYCERIN SL 0.4 MG TABLET SL PRN (17:08)
[2020-10-07] MEDS ORDERED: MORPHINE 4 MG/1 ML VIAL IV PRN (17:08)
[2020-10-07] MEDS ORDERED: ASPIRIN CHEW 81 MG TABLET PO ONE (17:08)
[2020-10-07] MEDS ORDERED: MORPHINE 4 MG/1 ML VIAL ONE (17:09)
[2020-10-07 17:20] LABS: Basophils # 0.1 10*3/uL (0.0-0.2); Basophils % 0.9 % (0.0-0.8); Eosinophils # 0.7 10*3/uL (0.0-0.87); Eosinophils % 8.5 % (0.00-10.9); Hematocrit 32.6 VOL% (35.7-47.0); Immature Granulocytes % 0.6 %; Immature Granulocytes Absolute 0.05 #; Lymphocytes # 1.5 10*3/uL (1.4-4.0); Lymphocytes % 19.2 % (21.3-54.2); Mean Corpuscular HGB Conc 30.7 GM/DL (32-36); Mean Corpuscular Volume 91.3 FL (87-102); Mean Platelet Volume 9.7 FL (9.6-12.0); Monocytes % 9.3 % (1.7-12.7); NRBC # 0.03 10*3/uL; Neutrophils % 61.5 % (38.7-73.9); Platelet Count 217 T/CUMM (130-400); Red Blood Count 3.57 MC/CUMM (3.8-5.5); Red Cell Distribution Width 16.6 % (9.3-17.3); White Blood Count 7.8 T/CUMM (4-12)
[2020-10-07] MEDS: NITROGLYCERIN 2% OINT 1 INCH/GM PACK TOP SCH (17:29)
[2020-10-07 17:37] LABS: Alanine Aminotransferase < 9 U/L (13-56); Alkaline Phosphatase 88 U/L (45-117); Aspartate Amino Transferase 15 U/L (0-37); Blood Urea Nitrogen 20 MG/DL (7-18); Calcium 9.2 MG/DL (8.5-10.1); Carbon Dioxide 31 MMOL/L (21-32); Estimated Glom Filtration Rate 6 ML/MIN; Glucose 87 MG/DL (74-106); Osmolality,Calculated 274.8 MOS/KG (273-304); Potassium 3.6 MMOL/L (3.5-5.1); Sodium 137 MMOL/L (136-145); Total Protein 6.8 G/DL (6.4-8.2)
[2020-10-07] MEDS: POTASSIUM CHLORIDE 20 MEQ TABLET PO PRN (18:21)
[2020-10-08] MEDS: NITROGLYCERIN 2% OINT 1 INCH/GM PACK TOP SCH ×3 (01:07→14:18)
[2020-10-08] MEDS: HEPARIN 5,000 UNIT/1 ML VIAL SUBCUT SCH ×2 (05:24→17:19)
[2020-10-08] MEDS: SEVELAMER CARBONATE 800 MG TABLET PO SCH ×2 (08:24→13:00)
[2020-10-08] MEDS: PANTOPRAZOLE 40 MG TABLET PO SCH (08:24)
[2020-10-08] MEDS: POTASSIUM CHLORIDE 20 MEQ TABLET PO PRN (08:30)
[2020-10-08 16:16] VITALS: BP 161/90
[2020-10-08] MEDS: cloNIDine 0.1 MG TABLET PO SCH ×2 (17:17→17:18)
[2020-10-08] MEDS: lisinopriL 5 MG TABLET PO SCH (17:18)
[2020-10-08] MEDS: METOPROLOL SUCCINATE XL 100 MG TABLET PO SCH (17:18)
== END 2020-10-08 19:08 | disposition home or self-care (01) | DRG 304 ==
LOC: EDBD → EDUNIT# → N.ED 14:28 → N.EDINP 16:23 → SUATTDRO 16:23 → N.CC 16:59 → N.TELES 10-07 18:40
PROVIDERS: ADMIT Internal Medicine; ATTEND Internal Medicine

== ENCOUNTER 2020-11-23 23:49 | Observation (INO) ==
[2020-11-24] MEDS ORDERED: MORPHINE 4 MG/1 ML VIAL IM STA (00:17)
[2020-11-24] MEDS ORDERED: hydrALAZINE 20 MG/1 ML VIAL IV STA (00:17)
[2020-11-24] MEDS ORDERED: ALBUTEROL/IPRATROPIUM 3 ML NEB RESP TX STA (00:18)
[2020-11-24] MEDS ORDERED: methylPREDNISolone SOD SUC 125 MG/2 ML VIAL IV STA (00:19)
[2020-11-24] MEDS ORDERED: MORPHINE 4 MG/1 ML VIAL IV STA (00:23)
[2020-11-24 00:36] LABS: ABG Base Excess 13.7 MMOL/L (-2.5-2.5); ABG HCO3 35.9 MMOL/L (20-26); ABG Oxygen Saturation 96.3 % (95-100); ABG PO2 80.7 MM HG (80-95)
[2020-11-24 00:37] LABS: Alanine Aminotransferase 11 U/L (13-56); Albumin 3.3 G/DL (3.4-5.0); Alkaline Phosphatase 80 U/L (45-117); Aspartate Amino Transferase 19 U/L (0-37); Blood Urea Nitrogen 23 MG/DL (7-18); Calcium 9.8 MG/DL (8.5-10.1); Carbon Dioxide 36 MMOL/L (21-32); Estimated Glom Filtration Rate 9 ML/MIN; Glucose 80 MG/DL (74-106); INR 0.9; Osmolality,Calculated 275.8 MOS/KG (273-304); PT Patient Result 10.4 SECS (10.5-12.0); Partial Thromboplastin Time 26.5 SECS (23.9-33.8); Potassium 3.9 MMOL/L (3.5-5.1); Sodium 137 MMOL/L (136-145); Total Protein 7.1 G/DL (6.4-8.2)
[2020-11-24 00:39] LABS: ABG PH 7.629 (7.35-7.45)
[2020-11-24 00:43] LABS: Basophils # 0.1 10*3/uL (0.0-0.2); Basophils % 0.6 % (0.0-0.8); Eosinophils # 0.3 10*3/uL (0.0-0.87); Eosinophils % 3.8 % (0.00-10.9); Hematocrit 24.2 VOL% (35.7-47.0); Hemoglobin 7.5 GM/DL (12.0-16.0); Immature Granulocytes % 0.4 %; Immature Granulocytes Absolute 0.03 #; Lymphocytes # 1.5 10*3/uL (1.4-4.0); Lymphocytes % 17.9 % (21.3-54.2); Mean Platelet Volume 11.3 FL (9.6-12.0); Monocytes % 6.1 % (1.7-12.7); Neutrophils % 71.2 % (38.7-73.9); Platelet Count 251 T/CUMM (130-400); Red Blood Count 2.72 MC/CUMM (3.8-5.5); White Blood Count 8.4 T/CUMM (4-12)
[2020-11-24] MEDS ORDERED: DILTIAZEM 50 MG/10 ML VIAL IV STA (01:26)
[2020-11-24] MEDS ORDERED: niCARdipine INJ 25 MG in SODIUM CHLORIDE 0.9% 240 ML IV PRN (02:38)
[2020-11-24] MEDS ORDERED: niCARdipine 25 MG/10 ML VIAL IV ONE (02:41)
[2020-11-24] MEDS ORDERED: LABETALOL 20 MG/4 ML SYRINGE IV STA ×2 (02:43→04:10)
[2020-11-24] MEDS ORDERED: LABETALOL 20 MG/4 ML SYRINGE IV ONE (02:43)
[2020-11-24] MEDS ORDERED: cloNIDine 0.1 MG TABLET PO STA (03:24)
[2020-11-24] MEDS ORDERED: GLUCAGON 1 MG VIAL IM PRN (04:54)
[2020-11-24] MEDS ORDERED: ONDANSETRON 4 MG/2 ML VIAL IV PRN (04:54)
[2020-11-24] MEDS ORDERED: DEXTROSE 50% 25 GM/50 ML VIAL IV PRN (04:54)
[2020-11-24] MEDS ORDERED: ACETAMINOPHEN 325 MG TABLET PO PRN (04:54)
[2020-11-24] MEDS: METOPROLOL SUCCINATE XL 100 MG TABLET PO SCH (08:45)
[2020-11-24] MEDS: cloNIDine 0.1 MG TABLET PO SCH ×2 (08:45→20:31)
[2020-11-24] MEDS: lisinopriL 5 MG TABLET PO SCH (14:33)
[2020-11-25 06:01] LABS: Basophils # 0.1 10*3/uL (0.0-0.2); Basophils % 0.5 % (0.0-0.8); Eosinophils # 0.3 10*3/uL (0.0-0.87); Eosinophils % 2.8 % (0.00-10.9); Hematocrit 24.2 VOL% (35.7-47.0); Hemoglobin 7.4 GM/DL (12.0-16.0); Immature Granulocytes % 0.4 %; Immature Granulocytes Absolute 0.04 #; Lymphocytes # 2.3 10*3/uL (1.4-4.0); Lymphocytes % 22.1 % (21.3-54.2); Mean Corpuscular HGB Conc 30.6 GM/DL (32-36); Mean Corpuscular Volume 89.3 FL (87-102); Mean Platelet Volume 11.1 FL (9.6-12.0); Monocytes % 5.8 % (1.7-12.7); Neutrophils % 68.4 % (38.7-73.9); Platelet Count 273 T/CUMM (130-400); Red Blood Count 2.71 MC/CUMM (3.8-5.5); Red Cell Distribution Width 15.9 % (9.3-17.3); White Blood Count 10.5 T/CUMM (4-12)
[2020-11-25 06:18] LABS: Calcium 10.3 MG/DL (8.5-10.1); Potassium 4.2 MMOL/L (3.5-5.1)
[2020-11-25] MEDS ORDERED: SODIUM CHLORIDE 0.9% 1,000 ML IV PRN ×2 (09:06→11:10)
[2020-11-25] MEDS: lisinopriL 5 MG TABLET PO SCH (09:22)
[2020-11-25] MEDS: cloNIDine 0.1 MG TABLET PO SCH (09:22)
[2020-11-25] MEDS: METOPROLOL SUCCINATE XL 100 MG TABLET PO SCH (09:23)
[2020-11-25 18:13] VITALS: BP 150/82
[2020-11-25 19:34] LABS: Hematocrit 27.1 VOL% (35.7-47.0); Hemoglobin 8.5 GM/DL (12.0-16.0)
== END 2020-11-25 20:05 | disposition home or self-care (01) ==
LOC: EDUNIT# → N.EDINP 23:49 → N.ED 23:49 → SUATTDRO 11-24 04:54 → N.4E 11-24 05:54
PROVIDERS: ADMIT Internal Medicine; ATTEND Internal Medicine

== ENCOUNTER 2020-12-05 07:19 | Observation (INO) ==
[2020-12-05] MEDS ORDERED: ASPIRIN 325 MG TABLET PO STA (07:55)
[2020-12-05] MEDS ORDERED: amLODIPine 5 MG TABLET PO STA (07:56)
[2020-12-05] MEDS ORDERED: METOPROLOL TARTRATE 5 MG/5 ML VIAL IV STA (07:56)
[2020-12-05] MEDS ORDERED: ALUM/MAG/SIMETH/LIDO VISC 1:1 30 ML BOTTLE PO STA (07:57)
[2020-12-05] MEDS ORDERED: ASPIRIN CHEW 81 MG TABLET PO STA (08:08)
[2020-12-05 08:31] LABS: INR 0.9; PT Patient Result 10.7 SECS (10.5-12.0); Partial Thromboplastin Time 22.1 SECS (23.9-33.8)
[2020-12-05 08:35] LABS: Basophils # 0.1 10*3/uL (0.0-0.2); Basophils % 0.4 % (0.0-0.8); Eosinophils # 0.2 10*3/uL (0.0-0.87); Eosinophils % 1.5 % (0.00-10.9); Hematocrit 23.4 VOL% (35.7-47.0); Hemoglobin 7.6 GM/DL (12.0-16.0); Immature Granulocytes % 0.4 %; Immature Granulocytes Absolute 0.05 #; Lymphocytes # 1.6 10*3/uL (1.4-4.0); Lymphocytes % 13.8 % (21.3-54.2); Mean Corpuscular HGB Conc 32.5 GM/DL (32-36); Mean Corpuscular Volume 85.7 FL (87-102); Mean Platelet Volume 11.3 FL (9.6-12.0); Monocytes % 5.6 % (1.7-12.7); Neutrophils % 78.3 % (38.7-73.9); Platelet Count 248 T/CUMM (130-400); Red Blood Count 2.73 MC/CUMM (3.8-5.5); Red Cell Distribution Width 15.6 % (9.3-17.3); White Blood Count 11.8 T/CUMM (4-12)
[2020-12-05 08:43] LABS: Albumin 3.2 G/DL (3.4-5.0); Bilirubin,Total 0.5 MG/DL (0.2-1.0); Calcium 10.3 MG/DL (8.5-10.1); Potassium 4.4 MMOL/L (3.5-5.1); Total Protein 6.8 G/DL (6.4-8.2)
[2020-12-05] MEDS ORDERED: ACETAMINOPHEN 325 MG TABLET PO PRN (10:00)
[2020-12-05] MEDS ORDERED: DEXTROSE 50% 25 GM/50 ML VIAL IV PRN (10:00)
[2020-12-05] MEDS ORDERED: GLUCAGON 1 MG VIAL IM PRN (10:00)
[2020-12-05] MEDS ORDERED: ONDANSETRON 4 MG/2 ML VIAL IV PRN (10:00)
[2020-12-05] MEDS ORDERED: PROMETHAZINE 25 MG TABLET PO PRN (10:06)
[2020-12-05] MEDS ORDERED: EPOETIN ALFA-EPBX 10,000 UNIT/ML VIAL IV PRN (10:06)
[2020-12-05] MEDS ORDERED: ALBUTEROL/IPRATROPIUM 3 ML NEB RESP TX PRN (10:06)
[2020-12-05] MEDS ORDERED: cloNIDine 0.3 MG/24 HR PATCH TRANSDERM SCH (10:30)
[2020-12-05] MEDS: hydrALAZINE 20 MG/1 ML VIAL IV PRN (10:39)
[2020-12-05] MEDS ORDERED: FUROSEMIDE 40 MG/4 ML VIAL IV STA (11:19)
[2020-12-05] MEDS: METOPROLOL SUCCINATE XL 100 MG TABLET PO SCH (11:30)
[2020-12-05] MEDS: PANTOPRAZOLE 40 MG TABLET PO SCH (11:30)
[2020-12-05] MEDS: SEVELAMER CARBONATE 800 MG TABLET PO SCH ×2 (13:00→18:38)
[2020-12-05] MEDS ORDERED: cloNIDine 0.1 MG TABLET PO STA (13:19)
[2020-12-06] MEDS: hydrALAZINE 20 MG/1 ML VIAL IV PRN (00:19)
[2020-12-06 00:30] LABS: Bacteria,Urine Occasional /HPF (Few); Bilirubin,Urine Negative (Negative); Blood, Urine Small mg/dL (Negative); Glucose,Urine (UA) 50 mg/dL (Negative); Ketones,Urine Negative (Negative); Nitrite,Urine Negative (Negative); Protein,Urine 100 MG/DL; RBC,Urine 2 /HPF (0-4); Squamous Epithelial Cell,Urine Occasional /HPF (0-10); Urine Appearance CLEAR (Clear); Urine Color Straw (Yellow); Urine Specific Gravity 1.008 (1.001-1.035); Urine Urobilinogen < 2.0 EU/DL (0.2-1.0)
[2020-12-06 00:52] LABS: Barbiturates Screen,Urine Negative (Negative); Benzodiazepines Screen,Urine Negative (Negative); Cannabinoid Screen,Urine Negative (Negative); Opiate Screen,Urine Negative (Negative); Phencyclidine Screen,Urine Negative (Negative)
[2020-12-06 05:22] LABS: Basophils % 0.5 % (0.0-0.8); Eosinophils # 0.3 10*3/uL (0.0-0.87); Eosinophils % 3.6 % (0.00-10.9); Hematocrit 23.1 VOL% (35.7-47.0); Hemoglobin 7.3 GM/DL (12.0-16.0); Immature Granulocytes % 0.4 %; Immature Granulocytes Absolute 0.03 #; Lymphocytes # 1.7 10*3/uL (1.4-4.0); Lymphocytes % 22.8 % (21.3-54.2); Mean Corpuscular HGB Conc 31.6 GM/DL (32-36); Mean Corpuscular Volume 87.2 FL (87-102); Mean Platelet Volume 11.3 FL (9.6-12.0); Monocytes % 6.8 % (1.7-12.7); Neutrophils % 65.9 % (38.7-73.9); Platelet Count 211 T/CUMM (130-400); Red Blood Count 2.65 MC/CUMM (3.8-5.5); Red Cell Distribution Width 15.4 % (9.3-17.3); White Blood Count 7.5 T/CUMM (4-12)
[2020-12-06 05:44] LABS: Calcium 9.6 MG/DL (8.5-10.1); Osmolality,Calculated 285.5 MOS/KG (273-304); Potassium 4.7 MMOL/L (3.5-5.1)
[2020-12-06] MEDS ORDERED: methylPREDNISolone 4 MG TABLET PO SCH (09:00)
[2020-12-06] MEDS: lisinopriL 20 MG TABLET PO SCH ×2 (09:37→21:04)
[2020-12-06] MEDS: SEVELAMER CARBONATE 800 MG TABLET PO SCH ×3 (09:38→17:20)
[2020-12-06] MEDS: PANTOPRAZOLE 40 MG TABLET PO SCH (09:38)
[2020-12-06] MEDS: LABETALOL 20 MG/4 ML SYRINGE IV PRN (13:27)
[2020-12-06] MEDS: METOPROLOL SUCCINATE XL 100 MG TABLET PO SCH (19:39)
[2020-12-07] MEDS: SEVELAMER CARBONATE 800 MG TABLET PO SCH ×2 (07:48→13:14)
[2020-12-07] MEDS: lisinopriL 20 MG TABLET PO SCH (13:17)
[2020-12-07] MEDS: PANTOPRAZOLE 40 MG TABLET PO SCH (13:18)
[2020-12-07] MEDS: LABETALOL 20 MG/4 ML SYRINGE IV PRN (13:46)
[2020-12-07 16:00] VITALS: BP 211/107
== END 2020-12-07 16:15 | disposition home or self-care (01) ==
LOC: EDBD → EDUNIT# → N.EDINP 07:19 → N.ED 07:19 → SUATTDRO 09:41 → N.EDINP 14:30 → N.3E 18:37
PROVIDERS: ADMIT Hospitalist; ATTEND Internal Medicine

== ENCOUNTER 2020-12-18 22:48 | Observation (INO) ==
[2020-12-18 23:37] LABS: Basophils % 0.4 % (0.0-0.8); Eosinophils # 0.2 10*3/uL (0.0-0.87); Eosinophils % 1.8 % (0.00-10.9); Hematocrit 26.6 VOL% (35.7-47.0); Hemoglobin 8.2 GM/DL (12.0-16.0); Immature Granulocytes % 0.5 %; Immature Granulocytes Absolute 0.05 #; Mean Corpuscular HGB Conc 30.8 GM/DL (32-36); Mean Corpuscular Volume 89.3 FL (87-102); Mean Platelet Volume 10.8 FL (9.6-12.0); Monocytes % 5.7 % (1.7-12.7); Neutrophils % 81.6 % (38.7-73.9); Platelet Count 296 T/CUMM (130-400); Red Blood Count 2.98 MC/CUMM (3.8-5.5); Red Cell Distribution Width 16.6 % (9.3-17.3)
[2020-12-18] MEDS ORDERED: ONDANSETRON 4 MG/2 ML VIAL IV ONE (23:40)
[2020-12-18] MEDS ORDERED: LACTATED RINGERS 500 ML IV ONE (23:41)
[2020-12-18] MEDS ORDERED: ASPIRIN EC 325 MG TABLET PO STA (23:41)
[2020-12-18] MEDS ORDERED: HALOPERIDOL 5 MG/ML AMP IV STA (23:43)
[2020-12-18 23:44] LABS: Albumin 3.8 G/DL (3.4-5.0); Bilirubin,Total 0.6 MG/DL (0.2-1.0); Calcium 11.5 MG/DL (8.5-10.1); Total Protein 8.2 G/DL (6.4-8.2)
[2020-12-19 00:22] LABS: INR 0.9; PT Patient Result 10.4 SECS (10.5-12.0); Partial Thromboplastin Time 26.4 SECS (23.9-33.8)
[2020-12-19] MEDS ORDERED: ENOXAPARIN 100 MG/ML SYRINGE SUBCUT STA (00:29)
[2020-12-19] MEDS ORDERED: NITROGLYCERIN SL 0.4 MG TABLET SL STA ×2 (00:30)
[2020-12-19] MEDS ORDERED: DEXTROSE 50% 25 GM/50 ML VIAL IV PRN (02:15)
[2020-12-19] MEDS ORDERED: GLUCAGON 1 MG VIAL IM PRN (02:15)
[2020-12-19] MEDS ORDERED: ONDANSETRON 4 MG/2 ML VIAL IV PRN (02:28)
[2020-12-19] MEDS ORDERED: MORPHINE 4 MG/1 ML VIAL IV PRN (02:28)
[2020-12-19] MEDS ORDERED: ACETAMINOPHEN 325 MG TABLET PO PRN (02:28)
[2020-12-19] MEDS ORDERED: diphenhydrAMINE CAP 25 MG CAPSULE PO PRN (02:36)
[2020-12-19] MEDS ORDERED: guaiFENesin/DM ER 600-30 MG TABLET PO PRN (02:36)
[2020-12-19] MEDS ORDERED: NICOTINE 21 MG/24 HR PATCH TRANSDERM PRN (02:36)
[2020-12-19] MEDS ORDERED: LABETALOL 20 MG/4 ML SYRINGE IV ONE (03:37)
[2020-12-19] MEDS ORDERED: LABETALOL 20 MG/4 ML SYRINGE IV STA (03:38)
[2020-12-19] MEDS ORDERED: lisinopriL 20 MG TABLET ONE (05:30)
[2020-12-19] MEDS ORDERED: lisinopriL 10 MG TABLET PO STA (05:31)
[2020-12-19] MEDS: hydrALAZINE 20 MG/1 ML VIAL IV PRN ×2 (06:55→14:10)
[2020-12-19] MEDS: ALBUTEROL/IPRATROPIUM 3 ML NEB RESP TX SCH ×2 (07:05→13:05)
[2020-12-19 08:11] LABS: Barbiturates Screen,Urine Negative (Negative); Benzodiazepines Screen,Urine Negative (Negative); Cannabinoid Screen,Urine Negative (Negative); Opiate Screen,Urine Negative (Negative); Phencyclidine Screen,Urine Negative (Negative)
[2020-12-19] MEDS ORDERED: ASPIRIN EC 81 MG TABLET PO SCH (09:00)
[2020-12-19 19:25] VITALS: BP 175/98
[2020-12-20] MEDS ORDERED: SEVELAMER CARBONATE 800 MG TABLET PO SCH (08:00)
[2020-12-20] MEDS ORDERED: lisinopriL 20 MG TABLET PO SCH (09:00)
== END 2020-12-19 19:17 | disposition home or self-care (01) ==
LOC: N.ED 22:48 → N.EDINP 22:48 → SUATTDRO 12-19 02:15 → N.EDINP 12-19 19:25
PROVIDERS: ADMIT Internal Medicine Geriatric Medicine; ATTEND Internal Medicine Geriatric Medicine

== ENCOUNTER 2021-01-06 01:31 | Observation (INO) ==
[2021-01-06] MEDS ORDERED: ALBUTEROL/IPRATROPIUM 3 ML NEB RESP TX STA (01:42)
[2021-01-06] MEDS ORDERED: hydrALAZINE 20 MG/1 ML VIAL IV STA ×3 (01:42→03:30)
[2021-01-06] MEDS ORDERED: methylPREDNISolone SOD SUC 125 MG/2 ML VIAL IV STA (01:42)
[2021-01-06] MEDS ORDERED: ASPIRIN 325 MG TABLET PO STA (01:42)
[2021-01-06] MEDS ORDERED: FUROSEMIDE 100 MG/10 ML VIAL IV STA (01:42)
[2021-01-06] MEDS ORDERED: NITROGLYCERIN 2% OINT 1 INCH/GM PACK TOP STA (01:42)
[2021-01-06] MEDS ORDERED: MORPHINE 2 MG/1 ML SYRINGE IV STA (01:42)
[2021-01-06] MEDS ORDERED: ONDANSETRON 4 MG/2 ML VIAL IV STA (01:42)
[2021-01-06] MEDS ORDERED: ALBUTEROL/IPRATROPIUM 3 ML NEB RESP TX ONE (01:43)
[2021-01-06 01:52] LABS: Basophils # 0.1 10*3/uL (0.0-0.2); Basophils % 0.6 % (0.0-0.8); Eosinophils # 0.2 10*3/uL (0.0-0.87); Hematocrit 22.5 VOL% (35.7-47.0); Hemoglobin 6.9 GM/DL (12.0-16.0); Immature Granulocytes % 0.4 %; Immature Granulocytes Absolute 0.03 #; Lymphocytes # 1.4 10*3/uL (1.4-4.0); Lymphocytes % 17.6 % (21.3-54.2); Mean Corpuscular HGB Conc 30.7 GM/DL (32-36); Mean Corpuscular Volume 91.1 FL (87-102); Mean Platelet Volume 11.2 FL (9.6-12.0); Monocytes % 4.2 % (1.7-12.7); Neutrophils % 74.2 % (38.7-73.9); Platelet Count 242 T/CUMM (130-400); Red Blood Count 2.47 MC/CUMM (3.8-5.5); Red Cell Distribution Width 18.8 % (9.3-17.3)
[2021-01-06 02:04] LABS: Albumin 3.1 G/DL (3.4-5.0); Bilirubin,Total 0.4 MG/DL (0.20-1.00); Calcium 9.3 MG/DL (8.5-10.1); Osmolality,Calculated 288.5 MOS/KG (273-304); Total Protein 6.7 G/DL (6.4-8.2)
[2021-01-06] MEDS ORDERED: LABETALOL 20 MG/4 ML SYRINGE IV STA (02:18)
[2021-01-06] MEDS ORDERED: cloNIDine 0.1 MG TABLET PO STA (03:29)
[2021-01-06] MEDS ORDERED: DEXTROSE 50% 25 GM/50 ML VIAL IV PRN (03:37)
[2021-01-06] MEDS ORDERED: GLUCAGON 1 MG VIAL IM PRN (03:37)
[2021-01-06] MEDS ORDERED: hydrALAZINE 20 MG/1 ML VIAL IV PRN (03:39)
[2021-01-06] MEDS ORDERED: ONDANSETRON 4 MG/2 ML VIAL IV PRN (03:39)
[2021-01-06] MEDS ORDERED: DOCUSATE SODIUM 100 MG CAPSULE PO PRN (03:39)
[2021-01-06] MEDS ORDERED: ACETAMINOPHEN 325 MG TABLET PO PRN (03:39)
[2021-01-06] MEDS ORDERED: MORPHINE 2 MG/1 ML SYRINGE IV PRN (03:39)
[2021-01-06] MEDS ORDERED: SODIUM CHLORIDE 0.9% 1,000 ML IV PRN (04:11)
[2021-01-06 05:07] LABS: Barbiturates Screen,Urine Negative (Negative); Benzodiazepines Screen,Urine Negative (Negative); Cannabinoid Screen,Urine Negative (Negative); Opiate Screen,Urine Negative (Negative); Phencyclidine Screen,Urine Negative (Negative)
[2021-01-06] MEDS ORDERED: ALBUTEROL 2.5 MG/3 ML NEB RESP TX PRN (07:45)
[2021-01-06] MEDS ORDERED: lisinopriL 10 MG TABLET PO SCH (09:00)
[2021-01-06] MEDS: cloNIDine 0.1 MG TABLET PO SCH ×2 (09:23→21:13)
[2021-01-07 05:10] LABS: Basophils # 0.1 10*3/uL (0.0-0.2); Basophils % 0.6 % (0.0-0.8); Eosinophils # 0.2 10*3/uL (0.0-0.87); Eosinophils % 2.8 % (0.00-10.9); Hematocrit 27.8 VOL% (35.7-47.0); Hemoglobin 8.9 GM/DL (12.0-16.0); Immature Granulocytes % 0.6 %; Immature Granulocytes Absolute 0.05 #; Lymphocytes # 1.7 10*3/uL (1.4-4.0); Lymphocytes % 20.2 % (21.3-54.2); Mean Corpuscular Volume 87.4 FL (87-102); Monocytes % 6.8 % (1.7-12.7); Platelet Count 260 T/CUMM (130-400); Red Blood Count 3.18 MC/CUMM (3.8-5.5); Red Cell Distribution Width 18.1 % (9.3-17.3); White Blood Count 8.6 T/CUMM (4-12)
[2021-01-07 05:26] LABS: Calcium 10.2 MG/DL (8.5-10.1); Potassium 4.4 MMOL/L (3.5-5.1)
[2021-01-07] MEDS: cloNIDine 0.1 MG TABLET PO SCH (08:40)
[2021-01-07] MEDS ORDERED: lisinopriL 20 MG TABLET PO SCH (09:00)
[2021-01-07 17:33] VITALS: BP 176/97
== END 2021-01-07 18:04 | disposition home or self-care (01) ==
LOC: EDUNIT# → EDBD → N.EDINP 01:31 → N.ED 01:31 → SUATTDRO 03:09 → N.5E 04:08
PROVIDERS: ADMIT Internal Medicine Nephrology; ATTEND Internal Medicine

== ENCOUNTER 2021-02-24 00:21 | Inpatient (IN) ==
[2021-02-24] MEDS ORDERED: NITROGLYCERIN SL 0.4 MG TABLET SL STA (01:16)
[2021-02-24] MEDS ORDERED: hydrALAZINE 20 MG/1 ML VIAL IV STA (01:16)
[2021-02-24 01:21] LABS: ABG HCO3 31.2 MMOL/L (20-26); ABG Oxygen Saturation 96.3 % (95-100); ABG PCO2 43.1 MM HG (35-48); ABG PH 7.477 (7.35-7.45); ABG PO2 91.6 MM HG (80-95); ABG TCO2 32.5 MMOL/L (23-27)
[2021-02-24] MEDS ORDERED: LABETALOL 20 MG/4 ML SYRINGE IV STA ×2 (01:33→02:53)
[2021-02-24 02:03] LABS: Basophils % 0.3 % (0.0-0.8); Eosinophils # 0.2 10*3/uL (0.0-0.87); Eosinophils % 1.6 % (0.00-10.9); Hematocrit 21.6 VOL% (35.7-47.0); Hemoglobin 6.6 GM/DL (12.0-16.0); Immature Granulocytes % 0.6 %; Immature Granulocytes Absolute 0.07 #; Lymphocytes # 0.7 10*3/uL (1.4-4.0); Lymphocytes % 6.4 % (21.3-54.2); Mean Corpuscular HGB Conc 30.6 GM/DL (32-36); Mean Corpuscular Volume 87.1 FL (87-102); Mean Platelet Volume 11.3 FL (9.6-12.0); Monocytes % 3.8 % (1.7-12.7); Neutrophils % 87.3 % (38.7-73.9); Platelet Count 243 T/CUMM (130-400); Red Blood Count 2.48 MC/CUMM (3.8-5.5); Red Cell Distribution Width 17.2 % (9.3-17.3); White Blood Count 10.9 T/CUMM (4-12)
[2021-02-24 02:23] LABS: INR 0.9; PT Patient Result 10.3 SECS (10.5-12.0)
[2021-02-24 02:37] LABS: Albumin 3.3 G/DL (3.4-5.0); Bilirubin,Total 1.2 MG/DL (0.20-1.00); Calcium 9.8 MG/DL (8.5-10.1); Ferritin 943.7 ng/mL (8-252); Osmolality,Calculated 287.7 MOS/KG (273-304); Potassium 4.5 MMOL/L (3.5-5.1); Total Protein 6.9 G/DL (6.4-8.2)
[2021-02-24] MEDS ORDERED: ONDANSETRON 4 MG/2 ML VIAL IV STA (03:04)
[2021-02-24] MEDS ORDERED: MORPHINE 2 MG/1 ML SYRINGE IV STA (03:04)
[2021-02-24] MEDS ORDERED: DEXTROSE 50% 25 GM/50 ML VIAL IV PRN (04:58)
[2021-02-24] MEDS ORDERED: ACETAMINOPHEN 325 MG TABLET PO PRN (04:58)
[2021-02-24] MEDS ORDERED: GLUCAGON 1 MG VIAL IM PRN (04:58)
[2021-02-24] MEDS ORDERED: ONDANSETRON 4 MG/2 ML VIAL IV PRN (04:58)
[2021-02-24] MEDS ORDERED: HEPARIN 5,000 UNIT/1 ML VIAL SUBCUT SCH (05:00)
[2021-02-24] MEDS ORDERED: cloNIDine 0.1 MG TABLET PO STA (05:08)
[2021-02-24] MEDS ORDERED: SODIUM CHLORIDE 0.9% 1,000 ML IV PRN (05:28)
[2021-02-24 06:20] LABS: % Iron Saturation 24.9 % (18-50); Barbiturates Screen,Urine Negative (Negative); Benzodiazepines Screen,Urine Negative (Negative); Cannabinoid Screen,Urine Negative (Negative); Opiate Screen,Urine Negative (Negative); Phencyclidine Screen,Urine Negative (Negative)
[2021-02-24] MEDS ORDERED: lisinopriL 20 MG TABLET PO SCH (09:00)
[2021-02-24] MEDS: cloNIDine 0.1 MG TABLET PO SCH ×2 (09:38→22:04)
[2021-02-24] MEDS: PANTOPRAZOLE 40 MG TABLET PO SCH (09:39)
[2021-02-24 19:36] LABS: Hematocrit 23.1 VOL% (35.7-47.0); Hemoglobin 7.1 GM/DL (12.0-16.0)
[2021-02-25] MEDS: hydrALAZINE 20 MG/1 ML VIAL IV PRN (04:30)
[2021-02-25] MEDS: guaiFENesin 200 MG/10 ML UDCUP PO PRN (06:10)
[2021-02-25 06:22] LABS: Basophils # 0.1 10*3/uL (0.0-0.2); Basophils % 0.6 % (0.0-0.8); Eosinophils # 0.4 10*3/uL (0.0-0.87); Eosinophils % 4.4 % (0.00-10.9); Hematocrit 24.4 VOL% (35.7-47.0); Hemoglobin 7.6 GM/DL (12.0-16.0); Immature Granulocytes % 0.4 %; Immature Granulocytes Absolute 0.03 #; Lymphocytes # 1.3 10*3/uL (1.4-4.0); Lymphocytes % 15.4 % (21.3-54.2); Mean Corpuscular HGB Conc 31.1 GM/DL (32-36); Mean Corpuscular Volume 86.8 FL (87-102); Mean Platelet Volume 10.8 FL (9.6-12.0); Monocytes % 3.7 % (1.7-12.7); Neutrophils % 75.5 % (38.7-73.9); Platelet Count 275 T/CUMM (130-400); Red Blood Count 2.81 MC/CUMM (3.8-5.5); Red Cell Distribution Width 16.8 % (9.3-17.3); White Blood Count 8.2 T/CUMM (4-12)
[2021-02-25 06:45] LABS: Albumin 2.9 G/DL (3.4-5.0); Potassium 4.6 MMOL/L (3.5-5.1)
[2021-02-25] MEDS: PANTOPRAZOLE 40 MG TABLET PO SCH (08:01)
[2021-02-25] MEDS: cloNIDine 0.1 MG TABLET PO SCH ×2 (08:01→21:48)
[2021-02-25] MEDS: lisinopriL 20 MG TABLET PO SCH (09:26)
[2021-02-25] MEDS ORDERED: OXYMETAZOLINE 0.05% NASAL SPRAY 15 ML BOTTLE BOTH NARES PRN (15:13)
[2021-02-25] MEDS ORDERED: LABETALOL 20 MG/4 ML SYRINGE IV ONE (15:13)
[2021-02-25] MEDS ORDERED: minoxidiL 2.5 MG TABLET PO SCH ×2 (21:00)
[2021-02-25] MEDS: carvediloL 6.25 MG TABLET PO SCH (21:47)
[2021-02-26] MEDS: guaiFENesin 200 MG/10 ML UDCUP PO PRN (00:37)
[2021-02-26] MEDS: hydrALAZINE 20 MG/1 ML VIAL IV PRN (00:40)
[2021-02-26] MEDS ORDERED: MORPHINE 2 MG/1 ML SYRINGE IV ONE (04:37)
[2021-02-26 08:06] LABS: Basophils % 0.4 % (0.0-0.8); Eosinophils # 0.3 10*3/uL (0.0-0.87); Eosinophils % 4.4 % (0.00-10.9); Hemoglobin 7.4 GM/DL (12.0-16.0); Immature Granulocytes % 0.6 %; Immature Granulocytes Absolute 0.04 #; Lymphocytes # 1.1 10*3/uL (1.4-4.0); Lymphocytes % 15.3 % (21.3-54.2); Mean Corpuscular HGB Conc 30.8 GM/DL (32-36); Mean Platelet Volume 10.8 FL (9.6-12.0); Monocytes % 4.3 % (1.7-12.7); Platelet Count 284 T/CUMM (130-400); Red Blood Count 2.76 MC/CUMM (3.8-5.5); Red Cell Distribution Width 17.1 % (9.3-17.3); White Blood Count 7.2 T/CUMM (4-12)
[2021-02-26 08:34] LABS: Calcium 9.6 MG/DL (8.5-10.1); Osmolality,Calculated 281.8 MOS/KG (273-304); Potassium 4.9 MMOL/L (3.5-5.1)
[2021-02-26] MEDS ORDERED: minoxidiL 2.5 MG TABLET PO SCH (09:00)
[2021-02-26] MEDS: cloNIDine 0.1 MG TABLET PO SCH (13:16)
[2021-02-26] MEDS: lisinopriL 20 MG TABLET PO SCH (13:16)
[2021-02-26] MEDS: carvediloL 6.25 MG TABLET PO SCH (13:17)
[2021-02-26] MEDS: PANTOPRAZOLE 40 MG TABLET PO SCH (13:17)
[2021-02-26 15:52] VITALS: BP 161/101
== END 2021-02-26 16:50 | disposition home or self-care (01) | DRG 291 ==
LOC: EDUNIT# 00:21 → N.ED 00:21 → EDBD 00:21 → N.EDINP 04:58 → N.TELES 07:13
PROVIDERS: ADMIT Hospitalist; ATTEND Hospitalist

== ENCOUNTER 2021-03-08 03:01 | Inpatient (IN) ==
[2021-03-08] MEDS ORDERED: MORPHINE 2 MG/1 ML SYRINGE IV STA (03:51)
[2021-03-08] MEDS ORDERED: NITROGLYCERIN 2% OINT 1 INCH/GM PACK TOP STA (03:51)
[2021-03-08] MEDS ORDERED: ONDANSETRON 4 MG/2 ML VIAL IV ONE (03:51)
[2021-03-08 03:59] LABS: Basophils % 0.3 % (0.0-0.8); Eosinophils # 0.4 10*3/uL (0.0-0.87); Eosinophils % 3.4 % (0.00-10.9); Hematocrit 21.4 VOL% (35.7-47.0); Hemoglobin 6.5 GM/DL (12.0-16.0); Immature Granulocytes % 0.5 %; Immature Granulocytes Absolute 0.06 #; Lymphocytes # 0.9 10*3/uL (1.4-4.0); Lymphocytes % 7.9 % (21.3-54.2); Mean Corpuscular HGB Conc 30.4 GM/DL (32-36); Mean Platelet Volume 11.5 FL (9.6-12.0); Monocytes % 4.2 % (1.7-12.7); Neutrophils % 83.7 % (38.7-73.9); Platelet Count 196 T/CUMM (130-400); Red Blood Count 2.46 MC/CUMM (3.8-5.5); Red Cell Distribution Width 18.4 % (9.3-17.3); White Blood Count 11.3 T/CUMM (4-12)
[2021-03-08 04:12] LABS: PT Patient Result 10.9 SECS (10.5-12.0)
[2021-03-08 04:31] LABS: Bilirubin,Total 0.8 MG/DL (0.20-1.00); Osmolality,Calculated 285.7 MOS/KG (273-304); Potassium 4.9 MMOL/L (3.5-5.1); Total Protein 6.4 G/DL (6.4-8.2)
[2021-03-08] MEDS ORDERED: LABETALOL 20 MG/4 ML SYRINGE IV STA (04:44)
[2021-03-08] MEDS ORDERED: FUROSEMIDE 40 MG/4 ML VIAL IV STA (06:18)
[2021-03-08] MEDS ORDERED: DOCUSATE SODIUM 100 MG CAPSULE PO PRN (06:27)
[2021-03-08] MEDS ORDERED: ONDANSETRON 4 MG/2 ML VIAL IV PRN (06:27)
[2021-03-08] MEDS ORDERED: LABETALOL 20 MG/4 ML SYRINGE IV PRN (06:52)
[2021-03-08] MEDS: ALBUTEROL/IPRATROPIUM 3 ML NEB RESP TX SCH ×3 (07:00→20:04)
[2021-03-08] MEDS: carvediloL 6.25 MG TABLET PO SCH ×2 (08:23→17:36)
[2021-03-08] MEDS ORDERED: cloNIDine 0.1 MG TABLET PO SCH (09:00)
[2021-03-08] MEDS ORDERED: minoxidiL 2.5 MG TABLET PO SCH (09:00)
[2021-03-08] MEDS ORDERED: SODIUM CHLORIDE 0.9% 1,000 ML IV PRN (10:42)
[2021-03-08] MEDS: lisinopriL 20 MG TABLET PO SCH (10:47)
[2021-03-08] MEDS: PANTOPRAZOLE 40 MG TABLET PO SCH (10:48)
[2021-03-08] MEDS ORDERED: VANCOMYCIN INJ 1,000 MG in SODIUM CHLORIDE 0.9% 250 ML IV ONE (12:33)
[2021-03-08] MEDS ORDERED: VANCOMYCIN INJ 500 MG in SODIUM CHLORIDE 0.9% 250 ML IV PRN (12:47)
[2021-03-08] MEDS: PIPERACILLIN/TAZOBACTAM 3,375 MG in SODIUM CHLORIDE 0.9% 100 ML IV SCH (13:02)
[2021-03-08] MEDS ORDERED: VANCOMYCIN INJ 1,750 MG in SODIUM CHLORIDE 0.9% 500 ML IV ONE (18:00)
[2021-03-08] MEDS: cloNIDine 0.1 MG TABLET PO SCH (20:43)
[2021-03-08] MEDS: minoxidiL 2.5 MG TABLET PO SCH (20:43)
[2021-03-08 21:03] LABS: Barbiturates Screen,Urine Negative (Negative); Benzodiazepines Screen,Urine Negative (Negative); Cannabinoid Screen,Urine Negative (Negative); Opiate Screen,Urine Negative (Negative); Phencyclidine Screen,Urine Negative (Negative)
[2021-03-09] MEDS: PIPERACILLIN/TAZOBACTAM 3,375 MG in SODIUM CHLORIDE 0.9% 100 ML IV SCH ×2 (00:10→14:31)
[2021-03-09] MEDS: ALBUTEROL/IPRATROPIUM 3 ML NEB RESP TX SCH ×4 (01:01→20:11)
[2021-03-09 06:20] LABS: Basophils # 0.1 10*3/uL (0.0-0.2); Basophils % 0.7 % (0.0-0.8); Eosinophils # 0.5 10*3/uL (0.0-0.87); Eosinophils % 5.1 % (0.00-10.9); Hematocrit 27.4 VOL% (35.7-47.0); Hemoglobin 8.5 GM/DL (12.0-16.0); Immature Granulocytes % 0.6 %; Immature Granulocytes Absolute 0.05 #; Mean Corpuscular Volume 85.9 FL (87-102); Mean Platelet Volume 11.1 FL (9.6-12.0); Monocytes % 5.9 % (1.7-12.7); Neutrophils % 76.7 % (38.7-73.9); Platelet Count 199 T/CUMM (130-400); Red Blood Count 3.19 MC/CUMM (3.8-5.5); Red Cell Distribution Width 17.2 % (9.3-17.3)
[2021-03-09 06:34] LABS: Albumin 2.7 G/DL (3.4-5.0); Bilirubin,Total 1.1 MG/DL (0.20-1.00); Calcium 9.3 MG/DL (8.5-10.1); Osmolality,Calculated 278.8 MOS/KG (273-304); Total Protein 6.6 G/DL (6.4-8.2)
[2021-03-09] MEDS: minoxidiL 2.5 MG TABLET PO SCH ×2 (08:20→20:26)
[2021-03-09] MEDS: carvediloL 6.25 MG TABLET PO SCH ×2 (08:20→17:01)
[2021-03-09] MEDS: cloNIDine 0.1 MG TABLET PO SCH (08:20)
[2021-03-09] MEDS: PANTOPRAZOLE 40 MG TABLET PO SCH (08:20)
[2021-03-09] MEDS: lisinopriL 20 MG TABLET PO SCH (08:20)
[2021-03-09] MEDS: NICOTINE 7 MG/24 HR PATCH TRANSDERM SCH (16:31)
[2021-03-10] MEDS: ALBUTEROL/IPRATROPIUM 3 ML NEB RESP TX SCH ×2 (00:13→07:14)
[2021-03-10] MEDS: PIPERACILLIN/TAZOBACTAM 3,375 MG in SODIUM CHLORIDE 0.9% 100 ML IV SCH ×2 (00:25→14:13)
[2021-03-10 05:05] LABS: Basophils # 0.1 10*3/uL (0.0-0.2); Basophils % 0.6 % (0.0-0.8); Eosinophils # 0.5 10*3/uL (0.0-0.87); Eosinophils % 5.8 % (0.00-10.9); Hematocrit 27.8 VOL% (35.7-47.0); Hemoglobin 8.7 GM/DL (12.0-16.0); Immature Granulocytes % 1.2 %; Lymphocytes % 11.7 % (21.3-54.2); Mean Corpuscular HGB Conc 31.3 GM/DL (32-36); Mean Corpuscular Volume 86.3 FL (87-102); Mean Platelet Volume 10.9 FL (9.6-12.0); Monocytes % 7.8 % (1.7-12.7); Neutrophils % 72.9 % (38.7-73.9); Platelet Count 218 T/CUMM (130-400); Red Blood Count 3.22 MC/CUMM (3.8-5.5); White Blood Count 8.4 T/CUMM (4-12)
[2021-03-10 05:26] LABS: Hypochromasia 1+; Microcytosis 1+
[2021-03-10 05:27] LABS: Ovalocytes Slight; Platelet Estimate Normal
[2021-03-10 05:39] LABS: Albumin 2.6 G/DL (3.4-5.0); Bilirubin,Total 0.9 MG/DL (0.20-1.00); Calcium 9.2 MG/DL (8.5-10.1); Osmolality,Calculated 287.5 MOS/KG (273-304); Potassium 5.5 MMOL/L (3.5-5.1); Total Protein 6.5 G/DL (6.4-8.2)
[2021-03-10] MEDS: minoxidiL 2.5 MG TABLET PO SCH (10:13)
[2021-03-10] MEDS: PANTOPRAZOLE 40 MG TABLET PO SCH (10:13)
[2021-03-10] MEDS: lisinopriL 20 MG TABLET PO SCH (10:13)
[2021-03-10] MEDS: carvediloL 6.25 MG TABLET PO SCH (10:14)
[2021-03-10] MEDS: NICOTINE 7 MG/24 HR PATCH TRANSDERM SCH (10:14)
[2021-03-10 14:33] VITALS: BP 154/71
== END 2021-03-10 15:21 | disposition home or self-care (01) | DRG 291 ==
LOC: EDUNIT# → EDBD → N.ED 03:01 → N.EDINP 03:01 → N.TELES 08:59 → SUATTDRO 13:11
PROVIDERS: ADMIT Hospitalist; ATTEND Internal Medicine

== ENCOUNTER 2021-04-10 22:53 | Observation (INO) ==
[2021-04-10] MEDS ORDERED: FUROSEMIDE 100 MG/10 ML VIAL IV STA (23:05)
[2021-04-10] MEDS ORDERED: ASPIRIN 325 MG TABLET PO STA (23:05)
[2021-04-10] MEDS ORDERED: ALBUTEROL/IPRATROPIUM 3 ML NEB RESP TX STA (23:05)
[2021-04-10] MEDS ORDERED: methylPREDNISolone SOD SUC 125 MG/2 ML VIAL IV STA (23:05)
[2021-04-10] MEDS ORDERED: ONDANSETRON 4 MG/2 ML VIAL IV STA (23:05)
[2021-04-10 23:52] LABS: Basophils % 0.4 % (0.0-0.8); Eosinophils # 0.3 10*3/uL (0.0-0.87); Hematocrit 20.4 VOL% (35.7-47.0); Immature Granulocytes % 0.3 %; Immature Granulocytes Absolute 0.02 #; Lymphocytes % 13.2 % (21.3-54.2); Mean Corpuscular HGB Conc 30.9 GM/DL (32-36); Mean Corpuscular Volume 86.8 FL (87-102); Mean Platelet Volume 10.9 FL (9.6-12.0); Monocytes % 7.9 % (1.7-12.7); Neutrophils % 74.2 % (38.7-73.9); Platelet Count 290 T/CUMM (130-400); Red Blood Count 2.35 MC/CUMM (3.8-5.5); Red Cell Distribution Width 18.8 % (9.3-17.3); White Blood Count 7.3 T/CUMM (4-12)
[2021-04-11] LABS: Hemoglobin 6.3 GM/DL (12.0-16.0)
[2021-04-11 00:05] LABS: PT Patient Result 10.9 SECS (10.5-12.0)
[2021-04-11 00:17] LABS: Albumin 3.1 G/DL (3.4-5.0); Bilirubin,Total 0.9 MG/DL (0.20-1.00); Calcium 9.8 MG/DL (8.5-10.1); Osmolality,Calculated 272.1 MOS/KG (273-304); Potassium 3.5 MMOL/L (3.5-5.1)
[2021-04-11] MEDS ORDERED: SODIUM CHLORIDE 0.9% 1,000 ML IV PRN (00:33)
[2021-04-11] MEDS ORDERED: NICOTINE 21 MG/24 HR PATCH TRANSDERM PRN (00:36)
[2021-04-11] MEDS ORDERED: guaiFENesin/DM ER 600-30 MG TABLET PO PRN (00:36)
[2021-04-11] MEDS ORDERED: ZALEPLON 5 MG CAPSULE PO PRN (00:36)
[2021-04-11] MEDS ORDERED: diphenhydrAMINE CAP 25 MG CAPSULE PO PRN (00:36)
[2021-04-11] MEDS ORDERED: GLUCAGON 1 MG VIAL IM PRN (00:36)
[2021-04-11] MEDS ORDERED: DEXTROSE 50% 25 GM/50 ML VIAL IV PRN (00:36)
[2021-04-11] MEDS ORDERED: hydrALAZINE 20 MG/1 ML VIAL IV PRN (00:36)
[2021-04-11] MEDS ORDERED: ACETAMINOPHEN 325 MG TABLET PO PRN (00:36)
[2021-04-11] MEDS: ALBUTEROL/IPRATROPIUM 3 ML NEB RESP TX SCH ×4 (01:50→19:20)
[2021-04-11 06:04] LABS: Basophils % 0.3 % (0.0-0.8); Eosinophils % 0.5 % (0.00-10.9); Hematocrit 23.2 VOL% (35.7-47.0); Hemoglobin 7.2 GM/DL (12.0-16.0); Immature Granulocytes % 0.4 %; Immature Granulocytes Absolute 0.03 #; Lymphocytes # 0.3 10*3/uL (1.4-4.0); Lymphocytes % 3.9 % (21.3-54.2); Mean Corpuscular Volume 89.2 FL (87-102); Mean Platelet Volume 11.9 FL (9.6-12.0); Monocytes % 1.3 % (1.7-12.7); NRBC # 0.03 10*3/uL; Neutrophils % 93.6 % (38.7-73.9); Red Cell Distribution Width 18.9 % (9.3-17.3); White Blood Count 7.5 T/CUMM (4-12)
[2021-04-11 06:10] LABS: Platelet Count 224 T/CUMM (130-400)
[2021-04-11 06:14] LABS: Albumin 3.3 G/DL (3.4-5.0); Bilirubin,Total 0.9 MG/DL (0.20-1.00); Calcium 10.3 MG/DL (8.5-10.1); Osmolality,Calculated 272.2 MOS/KG (273-304); Potassium 3.9 MMOL/L (3.5-5.1); Total Protein 7.5 G/DL (6.4-8.2)
[2021-04-11] MEDS ORDERED: MELATONIN 3 MG TABLET PO PRN (06:23)
[2021-04-11 06:35] LABS: Anisocytosis 2+; Band Neutrophils 3 % (0-10); Hypochromasia 1+; Lymphocytes 4 % (20-55); Ovalocytes Few; Platelet Estimate Normal; Poikilocytosis Slight; Polychromasia Slight; Segmented Neutrophils 90 % (50-85); Total Cells Counted 100
[2021-04-11 06:36] LABS: Tear Drop Cells Few
[2021-04-11] MEDS ORDERED: carvediloL 6.25 MG TABLET PO SCH (08:00)
[2021-04-11] MEDS ORDERED: carvediloL 6.25 MG TABLET PO ONE (09:16)
[2021-04-11] MEDS ORDERED: KETOROLAC 30 MG/1 ML VIAL IV ONE (09:29)
[2021-04-11] MEDS: minoxidiL 2.5 MG TABLET PO SCH (09:31)
[2021-04-11] MEDS: DOCUSATE SODIUM 100 MG CAPSULE PO SCH ×2 (09:31→21:37)
[2021-04-11] MEDS ORDERED: traMADol 50 MG TABLET PO PRN (09:32)
[2021-04-11] MEDS ORDERED: FUROSEMIDE 40 MG/4 ML VIAL IV ONE (09:35)
[2021-04-11] MEDS ORDERED: LEVOFLOXACIN INJ 500 MG/100 ML PREMIX IV SCH (16:00)
[2021-04-11] MEDS: carvediloL 6.25 MG TABLET PO SCH (16:23)
[2021-04-11] MEDS ORDERED: carvediloL 12.5 MG TABLET PO SCH (17:00)
[2021-04-12] MEDS: ALBUTEROL/IPRATROPIUM 3 ML NEB RESP TX SCH ×3 (01:17→14:53)
[2021-04-12 05:07] LABS: Basophils % 0.3 % (0.0-0.8); Eosinophils # 0.3 10*3/uL (0.0-0.87); Eosinophils % 2.8 % (0.00-10.9); Hematocrit 26.6 VOL% (35.7-47.0); Immature Granulocytes % 0.5 %; Immature Granulocytes Absolute 0.04 #; Lymphocytes # 1.2 10*3/uL (1.4-4.0); Lymphocytes % 13.2 % (21.3-54.2); Mean Corpuscular HGB Conc 30.1 GM/DL (32-36); Mean Corpuscular Volume 88.1 FL (87-102); Mean Platelet Volume 10.4 FL (9.6-12.0); Neutrophils % 75.2 % (38.7-73.9); Platelet Count 312 T/CUMM (130-400); Red Blood Count 3.02 MC/CUMM (3.8-5.5); Red Cell Distribution Width 17.8 % (9.3-17.3); White Blood Count 8.8 T/CUMM (4-12)
[2021-04-12 05:20] LABS: Calcium 10.2 MG/DL (8.5-10.1); Osmolality,Calculated 278.1 MOS/KG (273-304); Potassium 3.9 MMOL/L (3.5-5.1)
[2021-04-12] MEDS: carvediloL 6.25 MG TABLET PO SCH ×2 (13:24→16:23)
[2021-04-12] MEDS: minoxidiL 2.5 MG TABLET PO SCH (13:25)
[2021-04-12] MEDS: DOCUSATE SODIUM 100 MG CAPSULE PO SCH (13:25)
[2021-04-12 16:32] VITALS: BP 144/80
[2021-04-12] MEDS ORDERED: VANCOMYCIN INJ 500 MG in SODIUM CHLORIDE 0.9% 100 ML IV PRN (17:00)
[2021-04-12] MEDS ORDERED: VANCOMYCIN INJ 1,750 MG in SODIUM CHLORIDE 0.9% 500 ML IV ONE (17:00)
== END 2021-04-12 16:25 | disposition left against medical advice (07) ==
LOC: EDUNIT# → EDBD → N.ED 22:53 → N.EDINP 22:53 → SUATTDRO 04-11 00:36 → N.EDINP 04-11 02:42 → N.TELEN 04-11 02:56
PROVIDERS: ADMIT Hospitalist; ATTEND Internal Medicine

== ENCOUNTER 2021-04-20 06:01 | Inpatient (IN) ==
[2021-04-20] MEDS ORDERED: NITROGLYCERIN 2% OINT 1 INCH/GM PACK TOP STA (06:44)
[2021-04-20] MEDS ORDERED: MORPHINE 10 MG/1 ML VIAL IV STA (06:44)
[2021-04-20] MEDS ORDERED: ONDANSETRON 4 MG/2 ML VIAL IV STA (06:44)
[2021-04-20 06:45] LABS: Basophils % 0.4 % (0.0-0.8); Eosinophils # 0.4 10*3/uL (0.0-0.87); Eosinophils % 5.2 % (0.00-10.9); Hematocrit 24.9 VOL% (35.7-47.0); Hemoglobin 7.9 GM/DL (12.0-16.0); Immature Granulocytes % 0.4 %; Immature Granulocytes Absolute 0.03 #; Lymphocytes # 0.9 10*3/uL (1.4-4.0); Lymphocytes % 12.9 % (21.3-54.2); Mean Corpuscular HGB Conc 31.7 GM/DL (32-36); Mean Corpuscular Volume 85.6 FL (87-102); Mean Platelet Volume 11.4 FL (9.6-12.0); Monocytes % 10.6 % (1.7-12.7); Neutrophils % 70.5 % (38.7-73.9); Platelet Count 204 T/CUMM (130-400); Red Blood Count 2.91 MC/CUMM (3.8-5.5); Red Cell Distribution Width 17.4 % (9.3-17.3); White Blood Count 7.1 T/CUMM (4-12)
[2021-04-20] MEDS ORDERED: hydrALAZINE 20 MG/1 ML VIAL IV STA (06:49)
[2021-04-20] MEDS ORDERED: MORPHINE 2 MG/1 ML SYRINGE ONE ×2 (06:49→06:52)
[2021-04-20 07:01] LABS: Albumin 3.1 G/DL (3.4-5.0); Calcium 10.5 MG/DL (8.5-10.1); Potassium 4.2 MMOL/L (3.5-5.1); Total Protein 7.2 G/DL (6.4-8.2)
[2021-04-20] MEDS: NITROGLYCERIN SL 0.4 MG TABLET SL PRN (07:06)
[2021-04-20 07:20] VITALS: BP 185/114
[2021-04-20] MEDS ORDERED: ONDANSETRON 4 MG/2 ML VIAL IV PRN (07:33)
[2021-04-20] MEDS ORDERED: ALBUTEROL 2.5 MG/3 ML NEB RESP TX PRN (07:33)
[2021-04-20] MEDS ORDERED: ALUMINUM/MAGNES/SIMETH MAX STR 30 ML UDCUP PO PRN (07:33)
[2021-04-20] MEDS ORDERED: DOCUSATE SODIUM 100 MG CAPSULE PO PRN (07:33)
[2021-04-20] MEDS ORDERED: NITROGLYCERIN DRIP 50 MG/250 ML BOTTLE IV PRN (07:33)
[2021-04-20] MEDS ORDERED: ACETAMINOPHEN 325 MG TABLET PO PRN (07:33)
[2021-04-20 08:33] LABS: PT Patient Result 11.2 SECS (10.5-12.0)
[2021-04-20] MEDS: FUROSEMIDE 100 MG/10 ML VIAL IV SCH ×2 (08:35→15:28)
[2021-04-20] MEDS: PANTOPRAZOLE 40 MG TABLET PO SCH (09:23)
[2021-04-20] MEDS ORDERED: ALBUTEROL/IPRATROPIUM 3 ML NEB RESP TX PRN (10:34)
[2021-04-20] MEDS ORDERED: NON-FORMULARY MEDICATION (Albuterol Sulfate [Ventolin Hfa] 90 mcg/actuation HFA aerosol in INH PRN (10:34)
[2021-04-20] MEDS: NON-FORMULARY MEDICATION (Sucroferric Oxyhydroxide [Velphoro] 500 mg tablet,chewable) PO SCH ×2 (11:01→16:17)
[2021-04-20] MEDS: carvediloL 6.25 MG TABLET PO SCH ×2 (11:15→17:07)
[2021-04-20] MEDS: HEPARIN 5,000 UNIT/1 ML VIAL SUBCUT SCH (12:11)
[2021-04-20] MEDS: hydrALAZINE 20 MG/1 ML VIAL IV PRN ×2 (13:20→19:23)
[2021-04-20] MEDS: niCARdipine INJ 25 MG in SODIUM CHLORIDE 0.9% 240 ML IV PRN ×2 (13:25→18:17)
[2021-04-20] MEDS ORDERED: carvediloL 6.25 MG TABLET PO SCH (17:00)
[2021-04-20] MEDS: traMADol 50 MG TABLET PO PRN (17:27)
[2021-04-21] MEDS: FUROSEMIDE 100 MG/10 ML VIAL IV SCH ×3 (00:33→17:10)
[2021-04-21] MEDS: hydrALAZINE 20 MG/1 ML VIAL IV PRN ×2 (00:38→06:31)
[2021-04-21] MEDS: HEPARIN 5,000 UNIT/1 ML VIAL SUBCUT SCH ×2 (00:42→13:24)
[2021-04-21] MEDS: NITROGLYCERIN SL 0.4 MG TABLET SL PRN ×2 (00:43→00:51)
[2021-04-21] MEDS: MORPHINE 2 MG/1 ML SYRINGE IV PRN ×2 (01:07→08:36)
[2021-04-21 01:38] LABS: Calcium 10.1 MG/DL (8.5-10.1); Osmolality,Calculated 281.1 MOS/KG (273-304); Potassium 4.4 MMOL/L (3.5-5.1)
[2021-04-21] MEDS: niCARdipine INJ 25 MG in SODIUM CHLORIDE 0.9% 240 ML IV PRN ×2 (03:49→09:44)
[2021-04-21 04:29] LABS: Basophils % 0.3 % (0.0-0.8); Eosinophils # 0.6 10*3/uL (0.0-0.87); Eosinophils % 6.2 % (0.00-10.9); Hematocrit 27.9 VOL% (35.7-47.0); Hemoglobin 8.5 GM/DL (12.0-16.0); Immature Granulocytes % 0.4 %; Immature Granulocytes Absolute 0.04 #; Lymphocytes % 10.1 % (21.3-54.2); Mean Corpuscular HGB Conc 30.5 GM/DL (32-36); Mean Corpuscular Volume 86.4 FL (87-102); Mean Platelet Volume 10.5 FL (9.6-12.0); Monocytes % 6.6 % (1.7-12.7); Neutrophils % 76.4 % (38.7-73.9); Platelet Count 245 T/CUMM (130-400); Red Blood Count 3.23 MC/CUMM (3.8-5.5); Red Cell Distribution Width 17.2 % (9.3-17.3); White Blood Count 10.2 T/CUMM (4-12)
[2021-04-21 05:06] LABS: Bilirubin,Total 0.9 MG/DL (0.20-1.00); Calcium 10.3 MG/DL (8.5-10.1); Potassium 4.7 MMOL/L (3.5-5.1); Total Protein 7.2 G/DL (6.4-8.2)
[2021-04-21] MEDS: NON-FORMULARY MEDICATION (Sucroferric Oxyhydroxide [Velphoro] 500 mg tablet,chewable) PO SCH ×3 (08:25→16:21)
[2021-04-21] MEDS: minoxidiL 2.5 MG TABLET PO SCH (08:25)
[2021-04-21] MEDS: carvediloL 6.25 MG TABLET PO SCH ×2 (08:25→17:22)
[2021-04-21] MEDS: PANTOPRAZOLE 40 MG TABLET PO SCH (08:25)
[2021-04-21] MEDS ORDERED: EPOETIN ALFA-EPBX 10,000 UNIT/ML VIAL IV PRN (08:59)
[2021-04-21] MEDS ORDERED: MORPHINE 2 MG/1 ML SYRINGE IV PRN (10:31)
[2021-04-21 13:42] LABS: Barbiturates Screen,Urine Negative (Negative); Benzodiazepines Screen,Urine Negative (Negative); Cannabinoid Screen,Urine Negative (Negative); Opiate Screen,Urine Positive (Negative); Phencyclidine Screen,Urine Negative (Negative)
[2021-04-22] MEDS: HEPARIN 5,000 UNIT/1 ML VIAL SUBCUT SCH ×2 (01:08→13:38)
[2021-04-22] MEDS: FUROSEMIDE 100 MG/10 ML VIAL IV SCH ×2 (01:08→07:42)
[2021-04-22 06:30] LABS: Basophils # 0.1 10*3/uL (0.0-0.2); Basophils % 0.8 % (0.0-0.8); Eosinophils # 0.5 10*3/uL (0.0-0.87); Eosinophils % 7.3 % (0.00-10.9); Hemoglobin 8.5 GM/DL (12.0-16.0); Immature Granulocytes % 0.5 %; Immature Granulocytes Absolute 0.03 #; Lymphocytes # 1.1 10*3/uL (1.4-4.0); Lymphocytes % 18.4 % (21.3-54.2); Mean Corpuscular HGB Conc 30.4 GM/DL (32-36); Mean Corpuscular Volume 87.5 FL (87-102); Monocytes % 9.8 % (1.7-12.7); NRBC # 0.02 10*3/uL; Neutrophils % 63.2 % (38.7-73.9); Platelet Count 267 T/CUMM (130-400); Red Cell Distribution Width 16.8 % (9.3-17.3); White Blood Count 6.2 T/CUMM (4-12)
[2021-04-22] MEDS: hydrALAZINE 20 MG/1 ML VIAL IV PRN (06:46)
[2021-04-22 07:07] LABS: Calcium 9.9 MG/DL (8.5-10.1); Osmolality,Calculated 272.2 MOS/KG (273-304); Potassium 4.5 MMOL/L (3.5-5.1)
[2021-04-22] MEDS: NON-FORMULARY MEDICATION (Sucroferric Oxyhydroxide [Velphoro] 500 mg tablet,chewable) PO SCH ×3 (07:40→16:24)
[2021-04-22] MEDS: carvediloL 6.25 MG TABLET PO SCH ×2 (07:40→16:12)
[2021-04-22] MEDS: PANTOPRAZOLE 40 MG TABLET PO SCH (08:41)
[2021-04-22] MEDS: minoxidiL 2.5 MG TABLET PO SCH (08:41)
[2021-04-22] MEDS: FUROSEMIDE 80 MG TABLET PO SCH (16:11)
[2021-04-23] MEDS: HEPARIN 5,000 UNIT/1 ML VIAL SUBCUT SCH ×2 (00:11→12:49)
[2021-04-23] MEDS: traMADol 50 MG TABLET PO PRN (00:21)
[2021-04-23 05:03] LABS: Basophils # 0.1 10*3/uL (0.0-0.2); Basophils % 0.8 % (0.0-0.8); Eosinophils # 0.4 10*3/uL (0.0-0.87); Eosinophils % 6.9 % (0.00-10.9); Hematocrit 27.4 VOL% (35.7-47.0); Hemoglobin 8.2 GM/DL (12.0-16.0); Immature Granulocytes % 0.5 %; Immature Granulocytes Absolute 0.03 #; Lymphocytes # 1.3 10*3/uL (1.4-4.0); Lymphocytes % 21.2 % (21.3-54.2); Mean Corpuscular HGB Conc 29.9 GM/DL (32-36); Mean Corpuscular Volume 87.5 FL (87-102); Mean Platelet Volume 10.3 FL (9.6-12.0); Monocytes % 9.1 % (1.7-12.7); Neutrophils % 61.5 % (38.7-73.9); Platelet Count 266 T/CUMM (130-400); Red Blood Count 3.13 MC/CUMM (3.8-5.5); Red Cell Distribution Width 17.1 % (9.3-17.3); White Blood Count 5.9 T/CUMM (4-12)
[2021-04-23 05:27] LABS: Calcium 9.7 MG/DL (8.5-10.1); Osmolality,Calculated 281.8 MOS/KG (273-304); Potassium 4.9 MMOL/L (3.5-5.1)
[2021-04-23] MEDS: carvediloL 6.25 MG TABLET PO SCH (08:13)
[2021-04-23] MEDS: minoxidiL 2.5 MG TABLET PO SCH (08:13)
[2021-04-23] MEDS: PANTOPRAZOLE 40 MG TABLET PO SCH (08:13)
[2021-04-23] MEDS: FUROSEMIDE 80 MG TABLET PO SCH (08:13)
[2021-04-23] MEDS: NON-FORMULARY MEDICATION (Sucroferric Oxyhydroxide [Velphoro] 500 mg tablet,chewable) PO SCH ×2 (08:13→12:19)
== END 2021-04-23 14:06 | disposition home or self-care (01) | DRG 291 ==
LOC: EDBD → EDUNIT# → N.ED 06:01 → SUATTDRO 07:33 → N.EDINP 07:33 → N.ICU 08:34
PROVIDERS: ADMIT Internal Medicine; ATTEND Internal Medicine

== ENCOUNTER 2021-05-03 18:05 | Inpatient (IN) ==
[2021-05-03] MEDS ORDERED: NITROGLYCERIN SL 0.4 MG TABLET SL STA (18:27)
[2021-05-03] MEDS ORDERED: FUROSEMIDE 100 MG/10 ML VIAL IV STA (18:27)
[2021-05-03 20:00] LABS: Basophils # 0.1 10*3/uL (0.0-0.2); Basophils % 0.7 % (0.0-0.8); Eosinophils # 0.5 10*3/uL (0.0-0.87); Eosinophils % 5.5 % (0.00-10.9); Hematocrit 26.6 VOL% (35.7-47.0); Hemoglobin 8.2 GM/DL (12.0-16.0); Immature Granulocytes % 0.3 %; Immature Granulocytes Absolute 0.03 #; Lymphocytes % 11.3 % (21.3-54.2); Mean Corpuscular HGB Conc 30.8 GM/DL (32-36); Mean Corpuscular Volume 87.2 FL (87-102); Monocytes % 6.7 % (1.7-12.7); Neutrophils % 75.5 % (38.7-73.9); Platelet Count 238 T/CUMM (130-400); Red Blood Count 3.05 MC/CUMM (3.8-5.5); Red Cell Distribution Width 18.8 % (9.3-17.3); White Blood Count 8.7 T/CUMM (4-12)
[2021-05-03 20:24] LABS: Albumin 3.2 G/DL (3.4-5.0); Bilirubin,Total 0.7 MG/DL (0.20-1.00); Osmolality,Calculated 297.1 MOS/KG (273-304); Total Protein 7.1 G/DL (6.4-8.2)
[2021-05-03] MEDS ORDERED: DEXTROSE 50% 25 GM/50 ML VIAL IV STA (20:46)
[2021-05-03] MEDS ORDERED: INSULIN REGULAR 100 UNIT/ML IV STA (20:46)
[2021-05-03 21:10] LABS: PT Patient Result 10.9 SECS (10.5-12.0)
[2021-05-03 21:59] LABS: Bilirubin,Urine Negative (Negative); Blood, Urine Negative (Negative); Glucose,Urine (UA) 50 mg/dL (Negative); Ketones,Urine Negative (Negative); Nitrite,Urine Negative (Negative); Protein,Urine 100 MG/DL; RBC,Urine 2 /HPF (0-4); Squamous Epithelial Cell,Urine Moderate /HPF (0-10); Urine Appearance Slightly Hazy (Clear); Urine Color Yellow (Yellow); Urine Specific Gravity 1.009 (1.001-1.035); Urine Urobilinogen < 2.0 EU/DL (0.2-1.0)
[2021-05-03] MEDS ORDERED: GLUCAGON 1 MG VIAL IM PRN (22:08)
[2021-05-03] MEDS ORDERED: ONDANSETRON 4 MG/2 ML VIAL IV PRN (22:08)
[2021-05-03] MEDS ORDERED: SIMETHICONE CHEW 125 MG TABLET PO PRN (22:08)
[2021-05-03] MEDS ORDERED: hydrALAZINE 20 MG/1 ML VIAL IV PRN (22:08)
[2021-05-03] MEDS ORDERED: ACETAMINOPHEN 325 MG TABLET PO PRN (22:08)
[2021-05-03] MEDS ORDERED: DEXTROSE 50% 25 GM/50 ML VIAL IV PRN (22:08)
[2021-05-03] MEDS ORDERED: ALBUTEROL/IPRATROPIUM 3 ML NEB RESP TX PRN (22:32)
[2021-05-03] MEDS ORDERED: traMADol 50 MG TABLET PO PRN (22:32)
[2021-05-03] MEDS ORDERED: ALBUTEROL 2.5 MG/3 ML NEB RESP TX PRN (22:39)
[2021-05-03] MEDS ORDERED: cloNIDine 0.1 MG TABLET PO ONE ×2 (23:00)
[2021-05-03 23:47] LABS: Barbiturates Screen,Urine Negative (Negative); Benzodiazepines Screen,Urine Negative (Negative); Cannabinoid Screen,Urine Negative (Negative); Opiate Screen,Urine Negative (Negative); Phencyclidine Screen,Urine Negative (Negative)
[2021-05-04] MEDS: cefTRIAXone 1,000 MG in SODIUM CHLORIDE 0.9% 100 ML IV SCH (01:25)
[2021-05-04] MEDS: HEPARIN 5,000 UNIT/1 ML VIAL SUBCUT SCH ×2 (01:25→13:19)
[2021-05-04] MEDS ORDERED: KETOROLAC 30 MG/1 ML VIAL IV ONE (01:30)
[2021-05-04 06:36] LABS: Basophils # 0.1 10*3/uL (0.0-0.2); Basophils % 0.6 % (0.0-0.8); Eosinophils # 0.6 10*3/uL (0.0-0.87); Eosinophils % 7.5 % (0.00-10.9); Hematocrit 25.7 VOL% (35.7-47.0); Hemoglobin 7.8 GM/DL (12.0-16.0); Immature Granulocytes % 0.6 %; Immature Granulocytes Absolute 0.05 #; Lymphocytes # 0.9 10*3/uL (1.4-4.0); Lymphocytes % 11.7 % (21.3-54.2); Mean Corpuscular HGB Conc 30.4 GM/DL (32-36); Mean Corpuscular Volume 87.1 FL (87-102); Mean Platelet Volume 10.5 FL (9.6-12.0); Monocytes % 7.2 % (1.7-12.7); Neutrophils % 72.4 % (38.7-73.9); Platelet Count 223 T/CUMM (130-400); Red Blood Count 2.95 MC/CUMM (3.8-5.5); Red Cell Distribution Width 18.3 % (9.3-17.3); White Blood Count 7.8 T/CUMM (4-12)
[2021-05-04 07:18] LABS: Calcium 10.1 MG/DL (8.5-10.1); Osmolality,Calculated 296.1 MOS/KG (273-304); Potassium 5.9 MMOL/L (3.5-5.1)
[2021-05-04] MEDS: cloNIDine 0.1 MG TABLET PO SCH ×2 (09:21→21:07)
[2021-05-04] MEDS: DOCUSATE SODIUM 100 MG CAPSULE PO SCH ×2 (09:21→21:08)
[2021-05-04] MEDS: carvediloL 6.25 MG TABLET PO SCH ×2 (09:22→18:06)
[2021-05-04] MEDS: minoxidiL 2.5 MG TABLET PO SCH (09:22)
[2021-05-04] MEDS: PANTOPRAZOLE 40 MG TABLET PO SCH (09:22)
[2021-05-04] MEDS: NON-FORMULARY MEDICATION (Sucroferric Oxyhydroxide [Velphoro] 500 mg tablet,chewable) PO SCH ×3 (09:23→18:07)
[2021-05-04] MEDS: SODIUM ZIRCONIUM CYCLOSILICATE 10 GM PACK PO SCH ×2 (15:33→21:08)
[2021-05-05] MEDS: cefTRIAXone 1,000 MG in SODIUM CHLORIDE 0.9% 100 ML IV SCH (00:32)
[2021-05-05] MEDS: HEPARIN 5,000 UNIT/1 ML VIAL SUBCUT SCH ×2 (00:33→10:54)
[2021-05-05 05:34] LABS: Basophils # 0.1 10*3/uL (0.0-0.2); Basophils % 0.8 % (0.0-0.8); Eosinophils # 0.7 10*3/uL (0.0-0.87); Eosinophils % 10.7 % (0.00-10.9); Hematocrit 24.8 VOL% (35.7-47.0); Hemoglobin 7.6 GM/DL (12.0-16.0); Immature Granulocytes % 0.3 %; Immature Granulocytes Absolute 0.02 #; Lymphocytes # 0.8 10*3/uL (1.4-4.0); Lymphocytes % 13.3 % (21.3-54.2); Mean Corpuscular HGB Conc 30.6 GM/DL (32-36); Mean Platelet Volume 10.9 FL (9.6-12.0); Monocytes % 6.8 % (1.7-12.7); Neutrophils % 68.1 % (38.7-73.9); Platelet Count 201 T/CUMM (130-400); Red Blood Count 2.85 MC/CUMM (3.8-5.5); Red Cell Distribution Width 17.9 % (9.3-17.3); White Blood Count 6.2 T/CUMM (4-12)
[2021-05-05 05:52] LABS: Albumin 2.8 G/DL (3.4-5.0); Bilirubin,Total 1.2 MG/DL (0.20-1.00); Calcium 9.8 MG/DL (8.5-10.1); Osmolality,Calculated 287.8 MOS/KG (273-304); Potassium 4.9 MMOL/L (3.5-5.1); Total Protein 6.5 G/DL (6.4-8.2)
[2021-05-05] MEDS: NON-FORMULARY MEDICATION (Sucroferric Oxyhydroxide [Velphoro] 500 mg tablet,chewable) PO SCH ×3 (08:59→16:18)
[2021-05-05] MEDS: minoxidiL 2.5 MG TABLET PO SCH (09:35)
[2021-05-05] MEDS: cloNIDine 0.1 MG TABLET PO SCH ×2 (09:35→20:50)
[2021-05-05] MEDS: PANTOPRAZOLE 40 MG TABLET PO SCH (09:35)
[2021-05-05] MEDS: DOCUSATE SODIUM 100 MG CAPSULE PO SCH ×2 (09:35→20:50)
[2021-05-05] MEDS: carvediloL 6.25 MG TABLET PO SCH ×2 (09:35→16:18)
[2021-05-05] MEDS: SODIUM ZIRCONIUM CYCLOSILICATE 10 GM PACK PO SCH ×3 (09:35→20:51)
[2021-05-06] MEDS: cefTRIAXone 1,000 MG in SODIUM CHLORIDE 0.9% 100 ML IV SCH (00:44)
[2021-05-06] MEDS: HEPARIN 5,000 UNIT/1 ML VIAL SUBCUT SCH ×2 (00:44→12:15)
[2021-05-06] MEDS: NON-FORMULARY MEDICATION (Sucroferric Oxyhydroxide [Velphoro] 500 mg tablet,chewable) PO SCH ×2 (08:16→12:17)
[2021-05-06 08:29] LABS: Hematocrit 24.8 VOL% (35.7-47.0); Hemoglobin 7.5 GM/DL (12.0-16.0)
[2021-05-06 08:43] LABS: Calcium 9.8 MG/DL (8.5-10.1); Potassium 4.9 MMOL/L (3.5-5.1)
[2021-05-06] MEDS ORDERED: SODIUM CHLORIDE 0.9% 1,000 ML IV PRN (09:26)
[2021-05-06] MEDS: carvediloL 6.25 MG TABLET PO SCH (10:43)
[2021-05-06] MEDS: SEVELAMER CARBONATE 800 MG TABLET PO SCH ×2 (10:43→12:15)
[2021-05-06] MEDS: SODIUM ZIRCONIUM CYCLOSILICATE 10 GM PACK PO SCH (10:46)
[2021-05-06] MEDS: PANTOPRAZOLE 40 MG TABLET PO SCH (12:15)
[2021-05-06] MEDS: minoxidiL 2.5 MG TABLET PO SCH (12:15)
[2021-05-06] MEDS: DOCUSATE SODIUM 100 MG CAPSULE PO SCH (12:15)
[2021-05-06] MEDS: cloNIDine 0.1 MG TABLET PO SCH (12:15)
[2021-05-06 12:34] VITALS: BP 181/98
== END 2021-05-06 13:51 | disposition home or self-care (01) | DRG 291 ==
LOC: EDBD → EDUNIT# → N.ED 18:05 → SUATTDRO 22:08 → N.EDINP 22:08 → N.TELES 05-04 01:18
PROVIDERS: ADMIT Internal Medicine; ATTEND Internal Medicine

== ENCOUNTER 2021-05-15 00:21 | Inpatient (IN) ==
[2021-05-15] MEDS ORDERED: NITROGLYCERIN 2% OINT 1 INCH/GM PACK TOP STA (01:05)
[2021-05-15] MEDS ORDERED: ONDANSETRON 4 MG/2 ML VIAL IV ONE (01:05)
[2021-05-15] MEDS ORDERED: MORPHINE 2 MG/1 ML SYRINGE IV STA (01:05)
[2021-05-15 01:18] LABS: PT Patient Result 11.2 SECS (10.5-12.0); Partial Thromboplastin Time 25.6 SECS (23.8-32.1)
[2021-05-15 01:20] LABS: Basophils % 0.4 % (0.0-0.8); Eosinophils # 0.5 10*3/uL (0.0-0.87); Eosinophils % 5.1 % (0.00-10.9); Hematocrit 24.3 VOL% (35.7-47.0); Hemoglobin 7.4 GM/DL (12.0-16.0); Immature Granulocytes % 0.5 %; Immature Granulocytes Absolute 0.05 #; Lymphocytes % 10.7 % (21.3-54.2); Mean Corpuscular HGB Conc 30.5 GM/DL (32-36); Mean Corpuscular Volume 86.5 FL (87-102); Mean Platelet Volume 11.1 FL (9.6-12.0); Monocytes % 5.7 % (1.7-12.7); Neutrophils % 77.6 % (38.7-73.9); Platelet Count 235 T/CUMM (130-400); Red Blood Count 2.81 MC/CUMM (3.8-5.5); Red Cell Distribution Width 17.2 % (9.3-17.3); White Blood Count 9.5 T/CUMM (4-12)
[2021-05-15 01:23] LABS: Alanine Aminotransferase 51 U/L (13-56); Albumin 3.1 G/DL (3.4-5.0); Alkaline Phosphatase 120 U/L (45-117); Aspartate Amino Transferase 34 U/L (0-37); Blood Urea Nitrogen 64 MG/DL (7-18); Calcium 10.5 MG/DL (8.5-10.1); Carbon Dioxide 30 MMOL/L (21-32); Estimated Glom Filtration Rate 7 ML/MIN; Glucose 200 MG/DL (74-106); Potassium 4.4 MMOL/L (3.5-5.1); Sodium 136 MMOL/L (136-145); Total Protein 6.6 G/DL (6.4-8.2)
[2021-05-15] MEDS ORDERED: hydrALAZINE 20 MG/1 ML VIAL IV STA ×2 (01:37→02:04)
[2021-05-15] MEDS ORDERED: DOCUSATE SODIUM 100 MG CAPSULE PO PRN (03:18)
[2021-05-15] MEDS ORDERED: ACETAMINOPHEN 325 MG TABLET PO PRN (03:18)
[2021-05-15] MEDS ORDERED: GLUCAGON 1 MG VIAL IM PRN (03:18)
[2021-05-15] MEDS ORDERED: DEXTROSE 50% 25 GM/50 ML SYRINGE IV PRN (03:33)
[2021-05-15] MEDS: HEPARIN 5,000 UNIT/1 ML VIAL SUBCUT SCH ×3 (05:45→20:48)
[2021-05-15] MEDS: NITROGLYCERIN SL 0.4 MG TABLET SL PRN ×3 (07:21→07:35)
[2021-05-15] MEDS: MORPHINE 2 MG/1 ML SYRINGE IV PRN ×2 (07:40→18:08)
[2021-05-15] MEDS: hydrALAZINE 20 MG/1 ML VIAL IV PRN ×2 (12:13→17:15)
[2021-05-15] MEDS ORDERED: ALBUTEROL/IPRATROPIUM 3 ML NEB RESP TX PRN (16:20)
[2021-05-15] MEDS ORDERED: carvediloL 6.25 MG TABLET PO SCH (17:00)
[2021-05-16] MEDS: MORPHINE 2 MG/1 ML SYRINGE IV PRN ×3 (00:24→23:29)
[2021-05-16] MEDS: hydrALAZINE 20 MG/1 ML VIAL IV PRN ×3 (05:12→16:00)
[2021-05-16] MEDS: HEPARIN 5,000 UNIT/1 ML VIAL SUBCUT SCH ×3 (05:16→21:32)
[2021-05-16 07:13] LABS: Basophils # 0.1 10*3/uL (0.0-0.2); Basophils % 0.7 % (0.0-0.8); Eosinophils # 0.6 10*3/uL (0.0-0.87); Eosinophils % 6.4 % (0.00-10.9); Hematocrit 25.1 VOL% (35.7-47.0); Hemoglobin 7.6 GM/DL (12.0-16.0); Immature Granulocytes % 0.5 %; Immature Granulocytes Absolute 0.05 #; Lymphocytes # 1.2 10*3/uL (1.4-4.0); Lymphocytes % 12.8 % (21.3-54.2); Mean Corpuscular HGB Conc 30.3 GM/DL (32-36); Mean Corpuscular Volume 88.1 FL (87-102); Mean Platelet Volume 11.2 FL (9.6-12.0); Monocytes % 5.2 % (1.7-12.7); Neutrophils % 74.4 % (38.7-73.9); Platelet Count 202 T/CUMM (130-400); Red Blood Count 2.85 MC/CUMM (3.8-5.5); Red Cell Distribution Width 17.2 % (9.3-17.3); White Blood Count 9.2 T/CUMM (4-12)
[2021-05-16 07:30] LABS: Calcium 10.1 MG/DL (8.5-10.1); Osmolality,Calculated 285.1 MOS/KG (273-304); Potassium 5.7 MMOL/L (3.5-5.1)
[2021-05-16] MEDS ORDERED: SODIUM POLYSTYRENE SULFATE 15 GM/60 ML BOTTLE PO ONE (08:38)
[2021-05-16] MEDS: carvediloL 12.5 MG TABLET PO SCH ×2 (08:41→16:00)
[2021-05-16] MEDS ORDERED: minoxidiL 10 MG TABLET PO SCH (09:00)
[2021-05-16] MEDS ORDERED: minoxidiL 2.5 MG TABLET PO SCH (09:00)
[2021-05-16] MEDS ORDERED: KETOROLAC 30 MG/1 ML VIAL IV ONE (10:22)
[2021-05-16] MEDS ORDERED: COLCHICINE 0.6 MG CAPSULE PO ONE (10:22)
[2021-05-16] MEDS ORDERED: ASPIRIN CHEW 81 MG TABLET PO ONE (11:33)
[2021-05-16] MEDS: NITROGLYCERIN SL 0.4 MG TABLET SL PRN (11:33)
[2021-05-16] MEDS: ONDANSETRON 4 MG/2 ML VIAL IV PRN (11:38)
[2021-05-16] MEDS: ASPIRIN EC 81 MG TABLET PO SCH (11:39)
[2021-05-16] MEDS ORDERED: KETOROLAC 10 MG TABLET PO SCH (12:00)
[2021-05-16] MEDS ORDERED: KETOROLAC 10 MG TABLET PO PRN (12:38)
[2021-05-16] MEDS: LIDOCAINE 5% PATCH TRANSDERM SCH (13:06)
[2021-05-16 17:49] LABS: Barbiturates Screen,Urine Negative (Negative); Benzodiazepines Screen,Urine Negative (Negative); Cannabinoid Screen,Urine Negative (Negative); Opiate Screen,Urine Positive (Negative); Phencyclidine Screen,Urine Negative (Negative)
[2021-05-16] MEDS: COLCHICINE 0.6 MG CAPSULE PO SCH (21:31)
[2021-05-17] MEDS: hydrALAZINE 20 MG/1 ML VIAL IV PRN ×2 (00:23→04:41)
[2021-05-17] MEDS: HEPARIN 5,000 UNIT/1 ML VIAL SUBCUT SCH ×3 (04:38→21:07)
[2021-05-17 05:34] LABS: Basophils % 0.4 % (0.0-0.8); Eosinophils # 0.5 10*3/uL (0.0-0.87); Eosinophils % 6.2 % (0.00-10.9); Hematocrit 22.9 VOL% (35.7-47.0); Hemoglobin 7.1 GM/DL (12.0-16.0); Immature Granulocytes % 0.3 %; Immature Granulocytes Absolute 0.02 #; Lymphocytes # 0.9 10*3/uL (1.4-4.0); Lymphocytes % 11.7 % (21.3-54.2); Mean Corpuscular Volume 85.4 FL (87-102); Mean Platelet Volume 10.7 FL (9.6-12.0); Monocytes % 6.1 % (1.7-12.7); Neutrophils % 75.3 % (38.7-73.9); Platelet Count 179 T/CUMM (130-400); Red Blood Count 2.68 MC/CUMM (3.8-5.5); Red Cell Distribution Width 16.9 % (9.3-17.3); White Blood Count 7.5 T/CUMM (4-12)
[2021-05-17 05:50] LABS: Calcium 9.7 MG/DL (8.5-10.1); Osmolality,Calculated 283.7 MOS/KG (273-304); Potassium 5.3 MMOL/L (3.5-5.1)
[2021-05-17] MEDS: MORPHINE 2 MG/1 ML SYRINGE IV PRN ×2 (06:55→21:10)
[2021-05-17] MEDS: carvediloL 12.5 MG TABLET PO SCH ×2 (08:10→16:40)
[2021-05-17] MEDS: COLCHICINE 0.6 MG CAPSULE PO SCH ×2 (08:10→21:07)
[2021-05-17] MEDS: ASPIRIN EC 81 MG TABLET PO SCH (08:10)
[2021-05-17] MEDS: LIDOCAINE 5% PATCH TRANSDERM SCH (08:11)
[2021-05-17] MEDS: minoxidiL 2.5 MG TABLET PO SCH (10:24)
[2021-05-17] MEDS: ONDANSETRON 4 MG/2 ML VIAL IV PRN (16:39)
[2021-05-18 05:37] LABS: Basophils # 0.1 10*3/uL (0.0-0.2); Basophils % 0.9 % (0.0-0.8); Eosinophils # 0.5 10*3/uL (0.0-0.87); Eosinophils % 9.4 % (0.00-10.9); Hematocrit 23.1 VOL% (35.7-47.0); Hemoglobin 7.1 GM/DL (12.0-16.0); Immature Granulocytes % 0.3 %; Immature Granulocytes Absolute 0.02 #; Lymphocytes % 17.1 % (21.3-54.2); Mean Corpuscular HGB Conc 30.7 GM/DL (32-36); Mean Corpuscular Volume 85.9 FL (87-102); Mean Platelet Volume 10.9 FL (9.6-12.0); Monocytes % 7.3 % (1.7-12.7); Platelet Count 192 T/CUMM (130-400); Red Blood Count 2.69 MC/CUMM (3.8-5.5); Red Cell Distribution Width 16.8 % (9.3-17.3); White Blood Count 5.7 T/CUMM (4-12)
[2021-05-18 05:57] LABS: Osmolality,Calculated 285.8 MOS/KG (273-304); Potassium 4.6 MMOL/L (3.5-5.1)
[2021-05-18] MEDS: HEPARIN 5,000 UNIT/1 ML VIAL SUBCUT SCH ×2 (05:58→12:51)
[2021-05-18] MEDS: ONDANSETRON 4 MG/2 ML VIAL IV PRN (06:19)
[2021-05-18] MEDS: MORPHINE 2 MG/1 ML SYRINGE IV PRN (06:23)
[2021-05-18] MEDS: COLCHICINE 0.6 MG CAPSULE PO SCH (08:07)
[2021-05-18] MEDS: LIDOCAINE 5% PATCH TRANSDERM SCH (08:07)
[2021-05-18] MEDS: minoxidiL 2.5 MG TABLET PO SCH (08:08)
[2021-05-18] MEDS: ASPIRIN EC 81 MG TABLET PO SCH (08:08)
[2021-05-18] MEDS: carvediloL 12.5 MG TABLET PO SCH ×2 (08:08→16:01)
[2021-05-18] MEDS ORDERED: SODIUM CHLORIDE 0.9% 1,000 ML IV PRN ×2 (09:07→09:55)
[2021-05-18 16:55] VITALS: BP 122/54
== END 2021-05-18 18:48 | disposition home or self-care (01) | DRG 280 ==
LOC: EDBD → EDUNIT# → N.ED 00:21 → N.EDINP 00:21 → N.TELES 09:49 → SUATTDRO 05-16 15:48
PROVIDERS: ADMIT Internal Medicine; ATTEND Internal Medicine Geriatric Medicine

== ENCOUNTER 2021-05-21 10:09 | Inpatient (IN) ==
[2021-05-21] MEDS ORDERED: PANTOPRAZOLE 40 MG VIAL IV STA (10:20)
[2021-05-21 10:49] LABS: Basophils % 0.4 % (0.0-0.8); Eosinophils # 0.1 10*3/uL (0.0-0.87); Eosinophils % 2.2 % (0.00-10.9); Hemoglobin 7.7 GM/DL (12.0-16.0); Immature Granulocytes % 0.4 %; Immature Granulocytes Absolute 0.02 #; Lymphocytes # 0.4 10*3/uL (1.4-4.0); Lymphocytes % 7.9 % (21.3-54.2); Mean Corpuscular HGB Conc 30.8 GM/DL (32-36); Mean Corpuscular Volume 85.9 FL (87-102); Mean Platelet Volume 10.5 FL (9.6-12.0); Monocytes % 9.4 % (1.7-12.7); Neutrophils % 79.7 % (38.7-73.9); Platelet Count 215 T/CUMM (130-400); Red Blood Count 2.91 MC/CUMM (3.8-5.5); Red Cell Distribution Width 17.1 % (9.3-17.3); White Blood Count 5.6 T/CUMM (4-12)
[2021-05-21 11:12] LABS: Albumin 2.9 G/DL (3.4-5.0); Bilirubin,Total 0.4 MG/DL (0.20-1.00); Calcium 10.4 MG/DL (8.5-10.1); Osmolality,Calculated 284.4 MOS/KG (273-304); Potassium 5.2 MMOL/L (3.5-5.1); Total Protein 6.7 G/DL (6.4-8.2)
[2021-05-21 11:36] LABS: Anisocytosis 2+; Band Neutrophils 26 % (0-10); Eosinophils 4 % (0-10); Lymphocytes 11 % (20-55); Macrocytosis Slight; Platelet Estimate Normal; Poikilocytosis Slight; Segmented Neutrophils 51 % (50-85); Total Cells Counted 100
[2021-05-21] MEDS ORDERED: HYDROmorphone 2 MG/1 ML VIAL ONE (12:39)
[2021-05-21] MEDS ORDERED: ONDANSETRON 4 MG/2 ML VIAL ONE (12:39)
[2021-05-21] MEDS ORDERED: HYDROmorphone 2 MG/1 ML VIAL IV STA (12:48)
[2021-05-21] MEDS ORDERED: ONDANSETRON 4 MG/2 ML VIAL IV STA (12:48)
[2021-05-21] MEDS ORDERED: DEXTROSE 50% 25 GM/50 ML VIAL IV PRN (15:07)
[2021-05-21] MEDS ORDERED: GLUCAGON 1 MG VIAL IM PRN ×2 (15:07)
[2021-05-21] MEDS ORDERED: DEXTROSE 50% 25 GM/50 ML SYRINGE IV PRN (15:56)
[2021-05-21] MEDS: HEPARIN 5,000 UNIT/1 ML VIAL SUBCUT SCH (17:00)
[2021-05-21] MEDS: POLYETHYLENE GLYCOL POWDER 17 GM PACK PO SCH (17:01)
[2021-05-21] MEDS: PANTOPRAZOLE 40 MG TABLET PO SCH (21:51)
[2021-05-21] MEDS: ACETAMINOPHEN 325 MG TABLET PO PRN (21:51)
[2021-05-22] MEDS: MORPHINE 2 MG/1 ML SYRINGE IV PRN ×3 (01:33→17:27)
[2021-05-22 04:11] LABS: Albumin 2.8 G/DL (3.4-5.0); Bilirubin,Total 1.9 MG/DL (0.20-1.00); Calcium 9.9 MG/DL (8.5-10.1); Osmolality,Calculated 277.2 MOS/KG (273-304); Potassium 4.9 MMOL/L (3.5-5.1); Total Protein 6.8 G/DL (6.4-8.2)
[2021-05-22] MEDS: HEPARIN 5,000 UNIT/1 ML VIAL SUBCUT SCH ×2 (04:26→14:34)
[2021-05-22 06:17] LABS: Basophils % 0.4 % (0.0-0.8); Eosinophils % 0.8 % (0.00-10.9); Hematocrit 25.2 VOL% (35.7-47.0); Immature Granulocytes % 0.4 %; Immature Granulocytes Absolute 0.02 #; Lymphocytes # 0.5 10*3/uL (1.4-4.0); Lymphocytes % 9.1 % (21.3-54.2); Mean Corpuscular HGB Conc 31.7 GM/DL (32-36); Mean Corpuscular Volume 85.4 FL (87-102); Mean Platelet Volume 10.2 FL (9.6-12.0); Monocytes % 8.9 % (1.7-12.7); Neutrophils % 80.4 % (38.7-73.9); Platelet Count 193 T/CUMM (130-400); Red Blood Count 2.95 MC/CUMM (3.8-5.5); Red Cell Distribution Width 17.1 % (9.3-17.3); White Blood Count 5.3 T/CUMM (4-12)
[2021-05-22 06:40] LABS: Band Neutrophils 13 % (0-10); Eosinophils 2 % (0-10); Hypochromasia 2+; Lymphocytes 8 % (20-55); Segmented Neutrophils 67 % (50-85); Total Cells Counted 100
[2021-05-22 06:41] LABS: Anisocytosis 1+; Microcytosis 1+; Platelet Estimate Adequate
[2021-05-22] MEDS: ONDANSETRON 4 MG/2 ML VIAL IV PRN ×3 (08:44→21:16)
[2021-05-22] MEDS: POLYETHYLENE GLYCOL POWDER 17 GM PACK PO SCH (08:44)
[2021-05-22] MEDS: ACETAMINOPHEN 325 MG TABLET PO PRN (09:12)
[2021-05-22] MEDS: PANTOPRAZOLE 40 MG TABLET PO SCH ×2 (09:12→21:13)
[2021-05-22] MEDS ORDERED: ALBUTEROL/IPRATROPIUM 3 ML NEB RESP TX PRN (10:06)
[2021-05-22] MEDS: PIPERACILLIN/TAZOBACTAM 3,375 MG in SODIUM CHLORIDE 0.9% 100 ML IV SCH ×2 (10:38→23:36)
[2021-05-22] MEDS: SEVELAMER CARBONATE 800 MG TABLET PO SCH ×2 (14:37→17:06)
[2021-05-22] MEDS: carvediloL 12.5 MG TABLET PO SCH (17:06)
[2021-05-22] MEDS ORDERED: VANCOMYCIN INJ 1,250 MG in SODIUM CHLORIDE 0.9% 250 ML IV ONE (18:00)
[2021-05-23] MEDS: MORPHINE 2 MG/1 ML SYRINGE IV PRN ×3 (03:20→21:33)
[2021-05-23] MEDS: HEPARIN 5,000 UNIT/1 ML VIAL SUBCUT SCH ×2 (04:17→15:06)
[2021-05-23 05:54] LABS: Basophils % 0.3 % (0.0-0.8); Eosinophils # 0.3 10*3/uL (0.0-0.87); Eosinophils % 4.6 % (0.00-10.9); Hematocrit 23.6 VOL% (35.7-47.0); Hemoglobin 7.5 GM/DL (12.0-16.0); Immature Granulocytes % 0.3 %; Immature Granulocytes Absolute 0.02 #; Lymphocytes # 0.7 10*3/uL (1.4-4.0); Mean Corpuscular HGB Conc 31.8 GM/DL (32-36); Mean Corpuscular Volume 85.5 FL (87-102); Mean Platelet Volume 10.9 FL (9.6-12.0); Neutrophils % 69.8 % (38.7-73.9); Platelet Count 204 T/CUMM (130-400); Red Blood Count 2.76 MC/CUMM (3.8-5.5); Red Cell Distribution Width 16.7 % (9.3-17.3); White Blood Count 6.1 T/CUMM (4-12)
[2021-05-23 06:15] LABS: Calcium 9.7 MG/DL (8.5-10.1); Osmolality,Calculated 279.7 MOS/KG (273-304); Potassium 5.1 MMOL/L (3.5-5.1)
[2021-05-23 06:24] LABS: Band Neutrophils 5 % (0-10); Eosinophils 8 % (0-10); Hypochromasia 1+; Lymphocytes 11 % (20-55); Platelet Estimate Normal; Segmented Neutrophils 71 % (50-85); Total Cells Counted 100
[2021-05-23] MEDS ORDERED: minoxidiL 2.5 MG TABLET PO SCH (09:00)
[2021-05-23] MEDS: SEVELAMER CARBONATE 800 MG TABLET PO SCH ×3 (10:08→17:45)
[2021-05-23] MEDS: PANTOPRAZOLE 40 MG TABLET PO SCH ×2 (10:08→21:30)
[2021-05-23] MEDS: carvediloL 12.5 MG TABLET PO SCH ×2 (10:08→17:45)
[2021-05-23] MEDS: minoxidiL 2.5 MG TABLET PO SCH (10:09)
[2021-05-23] MEDS: POLYETHYLENE GLYCOL POWDER 17 GM PACK PO SCH (10:10)
[2021-05-23] MEDS: PIPERACILLIN/TAZOBACTAM 3,375 MG in SODIUM CHLORIDE 0.9% 100 ML IV SCH ×2 (15:05→22:36)
[2021-05-23] MEDS ORDERED: VANCOMYCIN INJ 500 MG in SODIUM CHLORIDE 0.9% 100 ML IV PRN (17:00)
[2021-05-24] MEDS: HEPARIN 5,000 UNIT/1 ML VIAL SUBCUT SCH (03:29)
[2021-05-24] MEDS: MORPHINE 2 MG/1 ML SYRINGE IV PRN ×2 (03:30→10:50)
[2021-05-24] MEDS: carvediloL 12.5 MG TABLET PO SCH (08:32)
[2021-05-24] MEDS: minoxidiL 2.5 MG TABLET PO SCH (08:32)
[2021-05-24] MEDS: PANTOPRAZOLE 40 MG TABLET PO SCH (08:32)
[2021-05-24] MEDS: SEVELAMER CARBONATE 800 MG TABLET PO SCH ×2 (08:32→12:24)
[2021-05-24] MEDS: POLYETHYLENE GLYCOL POWDER 17 GM PACK PO SCH (08:32)
[2021-05-24] MEDS: PIPERACILLIN/TAZOBACTAM 3,375 MG in SODIUM CHLORIDE 0.9% 100 ML IV SCH (12:24)
[2021-05-24 13:12] VITALS: BP 134/66
== END 2021-05-24 14:21 | disposition home or self-care (01) | DRG 313 ==
LOC: EDUNIT# → N.EDINP 10:09 → N.ED 10:09 → SUATTDRO 15:07 → N.EDINP 16:13 → N.TELES 16:19
PROVIDERS: ADMIT Internal Medicine; ATTEND Internal Medicine